=== PATIENT | female | born 1985 | race Caucasian/White ===

== ENCOUNTER 2023-05-20 10:04 | Outpatient (OUT) | payer OTHER, SELFPAY ==
[2023-05-20 10:59] LABS: Thyroid Stimulating Hormone 7.799 uIU/mL (0.358-3.740)
== END 2023-05-20 10:05 | disposition home or self-care (01) ==
LOC: LAB 10:04
PROVIDERS: PCP Family Medicine
DX: E03.9 Hypothyroidism, unspecified (principal)
CPT/HCPCS: 36415; 84436; 84443

== ENCOUNTER 2023-09-18 08:44 | Outpatient (OUT) | payer OTHER, SELFPAY ==
[2023-09-18 09:34] LABS: Thyroid Stimulating Hormone 1.069 uIU/mL (0.358-3.740)
== END 2023-09-18 08:45 | disposition home or self-care (01) ==
LOC: LAB 08:44
PROVIDERS: PCP Family Medicine
DX: E89.0 Postprocedural hypothyroidism (principal)
CPT/HCPCS: 36415; 84436; 84443

== ENCOUNTER 2023-12-10 21:54 | Outpatient (REF) | payer OTHER, SELFPAY ==
--- OUTSIDE RECORDS SUMMARY | 2023-12-10 22:00 | XMS_ITS | CCD ---
Author Organization [facility] Care Team Providers Care Environmental Services Associate Name Role Phone Nate Rubio Primary Care Physician Nate Kapadia Unavailable Unavailable Lor Glover Unavailable Jake Ny Unavailable Gemma Michael Primary Care Physician UnavailNate Couch Unavailable Unavailable MISC, DR MCGOWAN Admitting Unavailable MISC, DR MCGOWAN Attending Unavailable MISC, DR MCGOWAN Consulting Unavailable NADERER, DR EDNA Smalls Primary Care Unavailable MARYLU ., DR JORDAN Admitting Unavailable MARYLU ., DR JORDAN Attending Unavailable MARYLU ., DR JORDAN Consulting Unavailable NADERER, DR EDNA Smalls Primary Care Unavailable MARYLU ., DR JORDAN Admitting Unavailable MARYLU ., DR JORDAN Attending Unavailable MARYLU ., DR JORDAN Consulting Unavailable NADERER, DR EDNA Smalls Primary Care Unavailable ZIEBER, DR LANCE Biggs Consulting Unavailable KEZIA SALAMANCA Consulting Unavailable KEZIA SALAMANCA Admitting Unavailable NADERER, DR EDNA Smalls Primary Care Unavailable KEZIA SALAMANCA Attending Unavailable NADEREKalyan, DR EDNA Smalls Primary Care Unavailable NADERER, DR EDNA Smalls Admitting Unavailable NADERER, DR EDNA Smalls Attending Unavailable NADERER, DR EDNA Smalls Consulting Unavailable MISC, DR MCGOWAN Attending Unavailable MISC, DR MCGOWAN Admitting Unavailable MISC, DR MCGOWAN Consulting Unavailable NADERER, DR EDNA Smalls Primary Care Unavailable Gemma Michael Primary Care Physician EDNA [place] Attending Unavailable Allergies Allergy Classification Reported Allergen(s) Allergy Type Date of Onset Reaction(s) Facility (4 sources) Amoxicillin; Translations: [amoxicillin] Drug Allergy [facility] [employer] (4 sources) Other Allergy to substance (disorder) Methazolamide-h daksha [employer] (2 sources) methIMAzole Drug Allergy rash [employer] Other (1 source) methIMAzole Drug Allergy 6 [facility] Repository Medications Current Medications Medication Drug Class(es) Dates Sig (Normalized) Sig (Original) cephalexin 500 mg oral capsule (2 sources) Cephalosporin Antibacterial Start: 10-03-2021 take 1 capsule by mouth every six hours Cephalexin 500 MG 1 capsule Orally Four times a day for 10 day(s) Sep, Active cholecalciferol 0.05 mg oral capsule (4 sources) Vitamin D End: 05-27-2023 take 1 capsule by mouth once daily Vitamin D3 2,000 unit oral capsule 05/27/2023 take 1 capsule by oral route daily fexofenadine hydrochloride 180 mg oral tablet (6 sources) Histamine-1 Receptor Antagonist End: 05-27-2023 take 1 tablet by mouth once daily Camille Allergy 180 mg oral tablet 05/27/2023 take 1 tablet (180 mg) by oral route once daily Camille Active levothyroxine sodium 0.175 mg oral tablet (8 sources) l-Thyroxine Start: 05-27-2023 take 1 tablet by mouth once daily levothyroxine oral tablet 175 mcg 05/27/2023 Take 1 tablet daily with only water, at least 2 hr after and 30 min prior to eating or taking other meds. BRAD Mylan Start: 05-29-2022 levothyroxine 150 mcg tablet 05/29/2022 Take 1 tablet daily except take 1 1/2 tablets on Sundays with water on an empty stomach. BRAD Mylan Start: 08-31-2021 End: 05-28-2022 levothyroxine 137 mcg tablet 08/31/2021 05/28/2022 TAKE ONE TABLET BY MOUTH DAILY EXCEPT ON SATURDAY TAKE ONE AND ONE-HALF TABLETS BY MOUTH THAT MORNING WITH WATER ONLY FOR 30 MINUTES Start: 06-02-2020 take 1 tablet by more th once daily, then take 1 tablet by mouth once daily in the morning levothyroxine 137 mcg oral tablet 06/02/2020 take 1 daily except take 1 1/2 on Sundays by mouth every morning w/ water only for 30 minutes. BRAD Mylan Start: 06-01-2019 take 1 tablet by more th once daily, then take 1 tablet by mouth once daily in the morning levothyroxine 137 mcg oral tablet 06/01/2019 take 1 everyday except Saturday take 1 1/2 by mouth every morning w/ water only for 30 minutes Levothyroxine So dium 137 mg 1 daily Active montelukast 10 mg oral tablet (6 sources) Leukotriene Receptor Antagonist End: 05-27-2023 take 1 tablet by mouth once daily in the evening Singulair 10 mg oral tablet 05/27/2023 take 1 tablet (10 mg) by oral route once daily in the evening Singulair Active mupirocin 0.02 mg/mg topical ointment (2 sources) RNA Synthetase Inhibitor Antibacterial Mupirocin 2 % 1 application Externally Twice a day for 10 days Apply small amount to the abdominal abscess area twice a day for 10 days or until the area heals Active Nasacort Allergy 24HR (2 sources) Nasacort Allergy 24HR Active sulfamethoxazole 800 mg / trimethoprim 160 mg oral tablet (2 sources) Dihydrofolate Reductase Inhibitor Antibacterial, Sulfonamide Antimicrobial Start: 10-03-19 take 1 tablet by mouth every twelve hours Bactrim DS 800-160 MG 1 tablet Orally Twice a day for 10 day(s) Sep, Active Completed/Discontinued Medications Medication Drug Class(es) Dates Sig (Normalized) Sig (Original) amitriptyline hydrochloride 25 mg oral tablet (4 sources) Tricyclic Antidepressant End: 05-26-2015 take 1 tablet by mouth once daily at bedtime amitriptyline 25 mg oral tablet 05/26/2015 take 1 tablet (25 mg) by oral route once daily at bedtime cetirizine hydrochloride 10 mg oral tablet (4 sources) Histamine-1 Receptor Antagonist take 1 tablet by mouth once daily Zyrtec 10 mg oral tablet take 1 tablet (10 mg) by oral route once daily citalopram 20 mg oral tablet (4 sources) Serotonin Reuptake Inhibitor End: 03-19-2014 take 1 tablet by mouth once daily Celexa 20 mg oral tablet 03/19/2014 take 1 tablet (20 mg) by oral route once daily diazePAM 5 mg oral tablet (4 sources) Benzodiazepine End: 05-29-2022 take 1 tablet by mouth three times daily as needed diazepam 5 mg oral tablet 05/29/2022 take 1 tablet (5 mg) by oral route 3 times per day as needed lactobacillus acidophilus [id number] unt oral capsule (4 sources) End: 06-01-2019 take 1 capsule by mouth once daily Probiotic 10 billion cell oral capsule 06/01/2019 take 1 capsule by oral route daily lamoTRIgine 150 mg oral tablet (6 sources) Mood Stabilizer, Anti-epileptic Agent Start: 05-29-2018 End: 06-02-2020 take 1 tablet by mouth once daily Lamictal 150 mg oral tablet 05/29/2018 06/02/2020 take 1 tablet (150 mg) by oral route once daily LaMICtal Active norethindrone 0.35 mg oral tablet (8 sources) End: 03-19-2014 take 1 tablet by mouth once daily norethindrone (contraceptive) 0.35 mg oral tablet take 1 tablet by oral route once daily 24 hr propranolol hydrochloride 120 mg extended release oral capsule (4 sources) beta-Adrenergic Nicole End: 05-29-2018 take 1 capsule by mouth once daily propranolol 120 mg oral capsule,extended release 24 hr 05/29/2018 take 1 capsule (120 mg) by oral route once daily QUEtiapine 200 mg oral tablet (4 sources) Atypical Antipsychotic End: 05-29-2017 take 1 tablet by mouth once daily Seroquel 200 mg oral tablet 05/29/2017 take 1 tablet (200 mg) by oral route once daily sertraline 100 mg oral tablet (10 sources) Serotonin Reuptake Inhibitor Start: 05-30-2016 take 2 tablets by mouth once daily Zoloft 100 mg oral tablet 05/30/2016 Take 2 tablets by mouth once daily End: 05-26-2015 take 1 tablet by mouth once daily Zoloft 50 mg oral tablet 05/26/2015 take 1 tablet (50 mg) by oral route once daily Zoloft 200 mg 1 tablet Orally Active SUMAtriptan 25 mg oral tablet (4 sources) Serotonin-1b and Serotonin-1d Receptor Agonist End: 05-29-2022 take 1 tablet by mouth once Imitrex 25 mg oral tablet 05/29/2022 take 1 tablet (25 mg) by oral route once with fluids as early as possible after the onset of a migraine attack;may repeat after 2 hours if headache returns, not to exceed 200mg in 24hrs topiramate 50 mg oral tablet (4 sources) End: 05-31-2021 take 1 tablet by mouth once daily topiramate 50 mg oral tablet 05/31/2021 take 1 tablet (50 mg) by oral route once per day traZODone hydrochloride 50 mg oral tablet (4 sources) Serotonin Reuptake Inhibitor take 1 tablet by mouth once daily at bedtime as needed trazodone 50 mg oral tablet take 1 tablet (50 mg) by oral route once daily at bedtime as needed Problems Active Problems Problem Classification Problem Date Documented Date Episodic/Chronic Complications of surgical procedures or medical care (20 sources) Postprocedural hypothyroidism; 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] Onset: 05-26-2015 Chronic Immunizations and screening for infectious disease (1 source) Encounter for screening for human papillomavirus (HPV); Translations: [ENC SCREENING HUMAN PAPILLOMAVIRUS] Onset: 11-30-2022 Episodic Nutritional deficiencies (1 source) Vitamin D deficiency, unspecified; Translations: [VITAMIN D DEFICIENCY UNSPECIFIED] Onset: 05-21-2022 Chronic Other screening for suspected conditions (not mental disorders or infectious disease) (8 sources) Encounter for screening mammogram for malignant neoplasm of breast; Translations: [Encounter for screening for malignant neoplasm of cervix] Onset: 11-26-2022 Episodic Other upper respiratory infections (2 sources) Acute maxillary sinusitis; Translations: [Maxillary sinusitis, acute] Episodic Residual codes; unclassified (1 source) Family history of malignant neoplasm of breast; Translations: [FAMILY HX MALIG NEOPLASM OF BREAST] Onset: 01-01-2023 Episodic Residual codes; unclassified (1 source) Family history of malignant neoplasm of trachea, bronchus and lung; Translations: [FAM HX MALIG NEOPLSM TRACH BRON LNG] Onset: 01-01-2023 Episodic Thyroid disorders (20 sources) Hypothyroidism, unspecified; Translations: [Graves' disease] Onset: 12-31-2013 Chronic Past or Other Problems Problem Classification Problem Date Documented Date Episodic/Chronic Bacterial infection; unspecified site (1 source) Personal history of Methicillin resistant Staphylococcus aureus infection; Translations: [PERS HX METHICILLIN RSIST STAPH INF] Onset: 01-16-2022 Episodic Skin and subcutaneous tissue infections (9 sources) Abscess; Translations: [Cutaneous abscess, unspecified] Onset: 10-03-2021 Resolved: 01-13-2022 Episodic Results Test Name Value Interpretation Reference Range Facility No Panel Informationon 05-23 Tobacco smoking status Non-Smoker Invalid Interpretation Code [email or web address] MG MAMM SCREEN 3D LINDA CADon 12-25-2022 MG MAMM SCREEN 3D LINDA CAD Patient: JEET STEVENSON Exam Date: 12/25/2022 : 1985 Gender:F Ordering : DR NIKKI VALERO . Admission #: [id number] Family : Order #: [id number] CLICK HERE TO VIEW EXAM RADIOLOGY REPORT PROCEDURE: MAMMOGRAM SCREENING 3D BILATERAL CAD COMPARISON: MG MAMM SCREEN 3D LINDA CAD, 12/13/2021. MG MAMM SCREEN LINDA W CAD, 09/13/2020. MG MAMM SCREEN LINDA W CAD, 09/08/2019. MG MAMM LINDA SCRN W CAD DIG, 01/27/2013. INDICATIONS: Screening mammography Calculator Name NCI Breast Cancer Risk Assessment Tool 5 Year Breast Cancer Risk 0.70% Lifetime Breast Cancer Risk 20.30% Personal Breast Cancer No Personal Ovarian Cancer No Treatments None Family Cancers Mother with breast cancer at age 30; Grandfather-maternal with lung cancer at age 65; Grandfather-paternal with lung cancer at age 65. LOCATION: [facility] BREAST COMPOSITION: Scattered areas fibroglandular density. FINDINGS: DIAGNOSTIC CATEGORY 1--NEGATIVE. RIGHT BREAST: No significant suspicious finding. No significant change has occurred. LEFT BREAST: No significant suspicious finding. No significant change has occurred. RECOMMENDATIONS: CLINICAL EVALUATION. PLEASE NOTE: A NORMAL MAMMOGRAM DOES NOT EXCLUDE THE POSSIBILITY OF BREAST CANCER. A CLINICALLY SUSPICIOUS PALPABLE LUMP SHOULD BE BIOPSIED. Dictated by: Lance Hernandez M.D. on 12/25/2022 at 13:31 Approved by: Lance Hernandez M.D. on 12/25/2022 at 13:34 Normal [facility] PAP ACOG PANEL 2: 30 to 65on 12-02-2022 . . Normal [facility] Comment on above: Result Comment: Perf ormed at: WB Performed By: #### [id number] #### [facility] [address] [address] [address] Vinnie Gallardo Age Gdln ACOG Testing 30-65 Normal [facility] Comment on above: Performed By: #### [id number] #### [facility] [address] [place] [address] Dr. Vinnie Gallardo DIAGNOSIS: Comment Normal [facility] Comment on above: Result Comment: NEGA TIVE FOR INTRAEPITHELIAL LESION OR MALIGNANCY. Performed at: WB Performed By: #### [id number] #### [facility] [address] [address] [address] Vinnie Gallardo HPV Aptima Negative Normal Negative [facility] Comment on above: Result Comment: This nucleic acid amplification test detects fourteen high-risk HPV types (16,18,31,33,35,39,45,51,52,56,58,59,66,68) without differentiation. Performed at: =G Performed By: #### [id number] #### [facility] [address] [place] [address] Dr. Vinnie Gallardo HPV Genotype Reflex Comment Normal [facility] Comment on above: Result Comment: Crit eria not met, HPV Genotype not performed. Performed at: WB Performed By: #### [id number] #### [facility] [address] [place] [address] Dr. Vinnie Gallardo Methodology: Comment Normal [facility] Comment on above: Result Comment: This liquid based ThinPrep(R) pap test was screened with the use of an image guided system. Performed at: WB Performed By: #### [id number] #### [facility] [address] [place] [address] Dr. Vinnie Gallardo Note: Comment Normal [facility] Comment on above: Result Comment: The Pap smear is a screening test designed to aid in the detection of premalignant and malignant conditions of the uterine cervix. It is not a diagnostic procedure and should not be used as the sole means of detecting cervical cancer. Both false-positive and false-negative reports do occur. . Performed at: WB Performed By: #### [id number] #### [facility] [address] [place] [address] Dr. Vinnie Gallardo Performed by: Comment Normal [facility] Comment on above: Result Comment: Laura Maldonado, Cake Decorator (ASCP) Performed at: WB Performed By: #### [id number] #### [facility] [address] [place] [address] Dr. Vinnie Gallardo Specimen adequacy: Comment Normal [facility] Comment on above: Result Comment: Sati sfactory for evaluation. No endocervical component is identified. Performed at: WB Performed By: #### [id number] #### [facility] [address] [place] [address] Dr. Vinnie Gallardo Laboratory - Chemistry and C hemistry - challengeon 09-07-2022 TSH Qn 3.013 m[IU]/L Invalid Interpretation Code [employer] No Panel Informationon 09-07 ks Invalid Interpretation Code [employer] T4on 09-07-2022 T4 [Mass/Vol] 9.30 ug/dL Invalid Interpretation Code [facility] Comment on above: Performed By: #### T 4, TSH #### [facility] [address] [place] [address] Dr. Vinnie Gallardo TSHon 09-07-2022 TSH 3.013 uIU/mL Normal 0.358-3.740 [facility] Comment on above: Performed By: #### L IPID, LIVER, BMP #### [facility] [address] [place] [address] Dr. Vinnie Gallardo T4 [facility]on 05-19-2022 T4 [Mass/Vol] 7.5 ug/dL Normal 4.5-12.0 [facility] Comment on above: Performed By: #### T 4LC #### [facility] [address] [place] [address] Dr. Vinnie Gallardo CBC AUTO DIFFon 05-18-2022 BASO # 0.0 103/ul Normal 0.0-0.1 [facility] Comment on above: Performed By: #### L IPID, LIVER, BMP #### [facility] [address] [place] [address] Dr. Vinnie Gallardo Basophils/100 WBC (Bld) 0.4 % Normal 0.2-2.0 [facility] Comment on above: Performed By: #### L IPID, LIVER, BMP #### [facility] [address] [place] [address] Dr. Vinnie Gallardo EO # 0.2 103/ul Normal 0.0-0.7 [facility] Comment on above: Performed By: #### L IPID, LIVER, BMP #### [facility] [address] [place] [address] Dr. Vinnie Gallardo Eosinophils/100 WBC (Bld) 2.4 % Normal 0.9-7.0 [facility] Comment on above: Performed By: #### L IPID, LIVER, BMP #### [facility] [address] [place] [address] Dr. Vinnie Gallardo Erythrocyte distribution width (RBC) [Ratio] 13.2 % Normal 11.0-15.0 [facility] Comment on above: Performed By: #### L IPID, LIVER, BMP #### [facility] [address] [place] [address] Dr. Vinnie Gallardo Hematocrit (Bld) [Volume fraction] 38.9 % Normal 36.0-48.0 [facility] Comment on above: Performed By: #### L IPID, LIVER, BMP #### [facility] [address] [place] [address] Dr. Vinnie Gallardo Hemoglobin (Bld) [Mass/Vol] 13.1 g/dL Normal 12.0-16.0 [facility] Comment on above: Performed By: #### L IPID, LIVER, BMP #### [facility] [address] [place] [address] Dr. Vinnie Gallardo IG # 0.05 10e3/ul Critically high 0.00-0.03 [facility] Comment on above: Performed By: #### L IPID, LIVER, BMP #### [facility] [address] [place] [address] Dr. Vinnie Gallardo IG % 0.5 % Normal 0.0-0.5 [facility] Comment on above: Performed By: #### L IPID, LIVER, BMP #### [facility] [address] [place] [address] Dr. Vinnie Gallardo LYMPH # 2.5 103/ul Normal 1.2-3.8 [facility] Comment on above: Performed By: #### L IPID, LIVER, BMP #### [facility] [address] [address] [address] Vinnie Gallardo Lymphocytes/100 WBC (Bld) 26.6 % Normal 20.5-60.0 [facility] Comment on above: Performed By: #### L IPID, LIVER, BMP #### [facility] [address] [place] [address] Dr. Vinnie Gallardo MANUAL DIFF REQ NO Normal [facility] Comment on above: Performed By: #### L IPID, LIVER, BMP #### [facility] [address] [place] [address] Dr. Vinnie Gallardo MCH (RBC) [Entitic mass] 29.7 pg Normal 26.7-34.0 [facility] Comment on above: Performed By: #### L IPID, LIVER, BMP #### [facility] [address] [place] [address] Dr. Vinnie Gallardo MCHC (RBC) [Mass/Vol] 33.7 g/dL Normal 29.9-35.2 [facility] Comment on above: Performed By: #### L IPID, LIVER, BMP #### [facility] [address] [place] [address] Dr. Vinnie Gallardo MCV (RBC) [Entitic vol] 88.2 fL Normal 81.0-99.0 [facility] Comment on above: Performed By: #### L IPID, LIVER, BMP #### [facility] [address] [place] [address] Dr. Vinnie Gallardo MONO # 0.6 103/ul Normal 0.3-0.8 [facility] Comment on above: Performed By: #### L IPID, LIVER, BMP #### [facility] [address] [place] [address] Dr. Vinnie Gallardo Monocytes/100 WBC (Bld) 6.5 % Normal 1.7-12.0 [facility] Comment on above: Performed By: #### L IPID, LIVER, BMP #### [facility] [address] [place] [address] Dr. Vinnie Gallardo NEUT # 6.0 103/ul Normal 1.4-6.5 [facility] Comment on above: Performed By: #### L IPID, LIVER, BMP #### [facility] [address] [place] [address] Dr. Vinnie Gallardo Neutrophils/100 WBC (Bld) 63.6 % Normal 43.0-75.0 [facility] Comment on above: Performed By: #### L IPID, LIVER, BMP #### [facility] [address] [place] [address] Dr. Vinnie Gallardo Platelet mean volume (Bld) [Entitic vol] 10.5 fL Normal 9.5-13.5 [facility] Comment on above: Performed By: #### L IPID, LIVER, BMP #### [facility] [address] [place] [address] Dr. Vinnie Gallardo PLT 276 103/ul Normal 150-450 [facility] Comment on above: Performed By: #### L IPID, LIVER, BMP #### [facility] [address] [place] [address] Dr. Vinnie Gallardo RBC 4.41 106/ul Normal 4.20-5.40 [facility] Comment on above: Performed By: #### L IPID, LIVER, BMP #### [facility] [address] [place] [address] Dr. Vinnie Gallardo WBC 9.4 103/ul Normal 4.0-11.0 [facility] Comment on above: Performed By: #### L IPID, LIVER, BMP #### [facility] [address] [place] [address] Dr. Vinnie Gallardo GLYCOHEMOGLOBIN A1Con 2021 ADA RECOMMENDATION SEE BELOW Normal [facility] Comment on above: Result Comment: ADA RECOMMENDED LIMIT 4.0 - 6.0 ADA THERAPEUTIC TARGET < 7.0 ACTION SUGGESTED > 7.0 Performed By: #### A 1C #### [facility] [address] [address] [address] Vinnie Gallardo Glucose [Mass/Vol] 94 mg/dL Normal [facility] Comment on above: Performed By: #### A 1C #### [facility] [address] [address] [address] Vinnie Gallardo HbA1c (Bld) [Mass fraction] 4.9 % Normal 4.5-6.2 [facility] Comment on above: Performed By: #### A 1C #### [facility] [address] [address] [address] Vinnie Gallardo LIPID PROFILEon 05-18-2022 CHOL-HDL RATIO NORM SEE BELOW Normal [facility] Comment on above: Result Comment: 3.3 - 4.4 LOW RISK 4.4 - 7.1 AVERAGE RISK 7.1 - 11.0 MODERATE RISK >11.0 HIGH RISK Performed By: #### L IPID, LIVER, BMP #### [facility] [address] [address] [address] Vinnie Gallardo Cholesterol [Mass/Vol] 143 mg/dL Normal <=200 [facility] Comment on above: Performed By: #### L IPID, LIVER, BMP #### [facility] [address] [address] [address] Vinnie Gallardo Cholesterol in HDL [Mass/Vol] 42 mg/dL Normal 40-60 [facility] Comment on above: Performed By: #### L IPID, LIVER, BMP #### [facility] [address] [address] [address] Vinnie Gallardo Cholesterol in LDL [Mass/Vol] 74.6 mg/dL Normal [facility] Comment on above: Performed By: #### L IPID, LIVER, BMP #### [facility] [address] [address] [address] Vinnie Gallardo Cholesterol.total/Ch olesterol in HDL [Mass ratio] 3.4 {ratio} Normal [facility] Comment on above: Performed By: #### L IPID, LIVER, BMP #### [facility] [address] [address] [address] Vinnie Gallardo HDL NORMAL > or = 60 mg/dl - LOW CARDIOVASCULAR RISK <40 mg/dl - HIGH CARDIOVASCULAR RISK Normal [facility] Comment on above: Performed By: #### L IPID, LIVER, BMP #### [facility] [address] [address] [address] Vinnie Gallardo LDL CALC NORMAL SEE BELOW Normal [facility] Comment on above: Result Comment: <100 mg/dl OPTIMAL 100 - 129 mg/dl NEAR OR ABOVE OPTIMAL 130 - 159 mg/dl BORDERLINE HIGH 160 - 189 mg/dl HIGH >190 mg/dl VERY HIGH Performed By: #### L IPID, LIVER, BMP #### [facility] [address] [address] [address] Vinnie Gallardo Triglyceride [Mass/Vol] 132 mg/dL Normal <=150 [facility] Comment on above: Performed By: #### L IPID, LIVER, BMP #### [facility] [address] [address] [address] Vinnie Gallardo VLDL CALC 26.4 mg/dL Normal [facility] Comment on above: Performed By: #### L IPID, LIVER, BMP #### [facility] [address] [address] [address] Vinnie Gallardo LIVER PROFILEon 05-18-2022 Albumin [Mass/Vol] 3.6 g/dL Normal 3.4-5.0 [facility] Comment on above: Performed By: #### L IPID, LIVER, BMP #### [facility] [address] [address] [address] Vinnie Gallardo Albumin/Globulin [Mass ratio] 0.9 {ratio} Normal [facility] Comment on above: Performed By: #### L IPID, LIVER, BMP #### [facility] [address] [address] [address] Vinnie Gallardo ALP [Catalytic activity/Vol] 84 U/L Normal 46-116 [facility] Comment on above: Performed By: #### L IPID, LIVER, BMP #### [facility] [address] [address] [address] Vinnie Gallardo ALT [Catalytic activity/Vol] 33 U/L Normal 14-59 [facility] Comment on above: Performed By: #### L IPID, LIVER, BMP #### [facility] [address] [address] [address] Vinnie Gallardo AST [Catalytic activity/Vol] 22 U/L Normal 15-37 [facility] Comment on above: Performed By: #### L IPID, LIVER, BMP #### [facility] [address] [place] [address] Dr. Vinnie Gallardo BILI, CONJUGATED 0.2 mg/dL Normal 0.0-0.2 [facility] Comment on above: Performed By: #### L IPID, LIVER, BMP #### [facility] [address] [place] [address] Dr. Vinnie Gallardo Bilirubin [Mass/Vol] 1.1 mg/dL Critically high 0.2-1.0 [facility] Comment on above: Performed By: #### L IPID, LIVER, BMP #### [facility] [address] [place] [address] Dr. Vinnie Gallardo Globulin (S) [Mass/Vol] 3.9 g/dL Normal [facility] Comment on above: Performed By: #### L IPID, LIVER, BMP #### [facility] [address] [place] [address] Dr. Vinnie Gallardo Protein [Mass/Vol] 7.5 g/dL Normal 6.4-8.2 [facility] Comment on above: Performed By: #### L IPID, LIVER, BMP #### [facility] [address] [place] [address] Dr. Vinnie Gallardo Laboratory - Chemistry and C hemistry - challengeon 05-18-2022 TSH Qn 4.724 H Invalid Interpretation Code [employer] No Panel Informationon 05-18 RM Invalid Interpretation Code [employer] [facility] PROF CHEM 8 (BAS METB)on Anion gap [Moles/Vol] 10.7 mmol/L Normal [facility] Comment on above: Performed By: #### L IPID, LIVER, BMP #### [facility] [address] [address] [address] Vinnie Gallardo Calcium [Mass/Vol] 8.5 mg/dL Normal 8.5-10.1 [facility] Comment on above: Performed By: #### L IPID, LIVER, BMP #### [facility] [address] [address] [address] Vinnie Gallardo Chloride [Moles/Vol] 104 mmol/L Normal 98-107 [facility] Comment on above: Performed By: #### L IPID, LIVER, BMP #### [facility] [address] [address] [address] Vinnie Gallardo CO2 [Moles/Vol] 26.9 mmol/L Normal 21.0-32.0 [facility] Comment on above: Performed By: #### L IPID, LIVER, BMP #### [facility] [address] [address] [address] Vinnie Gallardo Creatinine [Mass/Vol] 0.84 mg/dL Normal 0.55-1.02 [facility] Comment on above: Performed By: #### L IPID, LIVER, BMP #### [facility] [address] [address] [address] Vinnie Gallardo EGFR-AF INDONESIAN >60 Normal >=60 [facility] Comment on above: Performed By: #### L IPID, LIVER, BMP #### [facility] [address] [address] [address] Vinnie Gallardo EGFR-NON AF INDONESIAN >60 Normal >=60 [facility] Comment on above: Performed By: #### L IPID, LIVER, BMP #### [facility] [address] [address] [address] Vinnie Gallardo Glucose [Mass/Vol] 100 mg/dL Normal 74-106 [facility] Comment on above: Performed By: #### L IPID, LIVER, BMP #### [facility] [address] [address] [address] Vinnie Gallardo Potassium [Moles/Vol] 3.6 mmol/L Normal 3.5-5.1 [facility] Comment on above: Performed By: #### L IPID, LIVER, BMP #### [facility] [address] [address] [address] Vinnie Gallardo Sodium [Moles/Vol] 138 mmol/L Normal 136-145 [facility] Comment on above: Performed By: #### L IPID, LIVER, BMP #### [facility] [address] [address] [address] Vinnie Gallardo Urea nitrogen [Mass/Vol] 7.0 mg/dL Normal 7.0-18.0 [facility] Comment on above: Performed By: #### L IPID, LIVER, BMP #### [facility] [address] [place] [address] Dr. Vinnie Gallardo Urea nitrogen/Creatinine [Mass ratio] 8.3 mg/mg Normal [facility] Comment on above: Performed By: #### L IPID, LIVER, BMP #### [facility] [address] [place] [address] Dr. Vinnie Gallardo TSHon 05-18-2022 TSH 4.724 uIU/mL Critically high 0.358-3.740 [facility] Comment on above: Performed By: #### L IPID, LIVER, BMP #### [facility] [address] [place] [address] Dr. Vinnie Gallardo VITAMIN D 25 OHon 05-18-2022 VIT D 25-OH 12.4 ng/mL Normal [facility] Comment on above: Performed By: #### V ITAD #### [facility] [address] [place] [address] Dr. Vinnie Gallardo VIT D RANGES SEE BELOW Normal [facility] Comment on above: Result Comment: <20 ng/mL Vit D deficient 20 - <30 ng/mL Vit D insufficient 30 - 100 ng/mL Vit D sufficient >100 ng/mL Potential Toxicity Performed By: #### V ITAD #### [facility] [address] [place] [address] Dr. Vinnie Gallardo CBC AUTO DIFFon 01-13-2022 BASO # 0.0 103/ul Normal 0.0-0.1 [facility] Comment on above: Performed By: #### C BC #### [facility] [address] [address] [address] Vinnie Gallardo Basophils/100 WBC (Bld) 0.2 % Normal 0.2-2.0 [facility] Comment on above: Performed By: #### C BC #### [facility] [address] [address] [address] Vinnie Gallardo EO # 0.2 103/ul Normal 0.0-0.7 [facility] Comment on above: Performed By: #### C BC #### [facility] [address] [address] [address] Vinnie Gallardo Eosinophils/100 WBC (Bld) 1.5 % Normal 0.9-7.0 [facility] Comment on above: Performed By: #### C BC #### [facility] [address] [place] [address] Dr. Vinnie Gallardo Erythrocyte distribution width (RBC) [Ratio] 13.0 % Normal 11.0-15.0 [facility] Comment on above: Performed By: #### C BC #### [facility] [address] [place] [address] Dr. Vinnie Gallardo Hematocrit (Bld) [Volume fraction] 38.6 % Normal 36.0-48.0 [facility] Comment on above: Performed By: #### C BC #### [facility] [address] [address] [address] Vinnie Gallardo Hemoglobin (Bld) [Mass/Vol] 12.9 g/dL Normal 12.0-16.0 [facility] Comment on above: Performed By: #### C BC #### [facility] [address] [address] [address] Vinnie Gallardo IG # 0.05 10e3/ul Critically high 0.00-0.03 [facility] Comment on above: Performed By: #### C BC #### [facility] [address] [address] [address] iVnnie Gallardo IG % 0.4 % Normal 0.0-0.5 [facility] Comment on above: Performed By: #### C BC #### [facility] [address] [address] [address] Vinnie Gallardo LYMPH # 2.4 103/ul Normal 1.2-3.8 [facility] Comment on above: Performed By: #### C BC #### [facility] [address] [place] [address] Dr. Vinnie Gallardo Lymphocytes/100 WBC (Bld) 19.5 % Critically low 20.5-60.0 [facility] Comment on above: Performed By: #### C BC #### [facility] [address] [place] [address] Dr. Vinnie Gallardo MANUAL DIFF REQ NO Normal [facility] Comment on above: Performed By: #### C BC #### [facility] [address] [place] [address] Dr. Vinnie Gallardo MCH (RBC) [Entitic mass] 29.7 pg Normal 26.7-34.0 [facility] Comment on above: Performed By: #### C BC #### [facility] [address] [place] [address] Dr. Vinnie Gallardo MCHC (RBC) [Mass/Vol] 33.4 g/dL Normal 29.9-35.2 [facility] Comment on above: Performed By: #### C BC #### [facility] [address] [place] [address] Dr. Vinnie Gallardo MCV (RBC) [Entitic vol] 88.7 fL Normal 81.0-99.0 [facility] Comment on above: Performed By: #### C BC #### [facility] [address] [place] [address] Dr. Vinnie Gallardo MONO # 1.0 103/ul Critically high 0.3-0.8 [facility] Comment on above: Performed By: #### C BC #### [facility] [address] [place] [address] Dr. Vinnie Gallardo Monocytes/100 WBC (Bld) 8.2 % Normal 1.7-12.0 [facility] Comment on above: Performed By: #### C BC #### [facility] [address] [address] [address] Vinnie Gallardo NEUT # 8.7 103/ul Critically high 1.4-6.5 [facility] Comment on above: Performed By: #### C BC #### [facility] [address] [address] [address] Vinnie Gallardo Neutrophils/100 WBC (Bld) 70.2 % Normal 43.0-75.0 [facility] Comment on above: Performed By: #### C BC #### [facility] [address] [address] [address] Vinnie Gallardo Platelet mean volume (Bld) [Entitic vol] 10.1 fL Normal 9.5-13.5 [facility] Comment on above: Performed By: #### C BC #### [facility] [address] [place] [address] Dr. Vinnie Gallardo PLT 264 103/ul Normal 150-450 [facility] Comment on above: Performed By: #### C BC #### [facility] [address] [address] [address] Vinnie Gallardo RBC 4.35 106/ul Normal 4.20-5.40 [facility] Comment on above: Performed By: #### C BC #### [facility] [address] [address] [address] Vinnie Gallardo WBC 12.4 103/ul Critically high 4.0-11.0 [facility] Comment on above: Performed By: #### C BC #### [facility] [address] [place] [address] Dr. Vinnie Gallardo PROF CHEM 8 (BAS METB)on Anion gap [Moles/Vol] 12.0 mmol/L Normal [facility] Comment on above: Performed By: #### L IPID, LIVER, BMP #### [facility] [address] [place] [address] Dr. Vinnie Gallardo Calcium [Mass/Vol] 8.3 mg/dL Critically low 8.5-10.1 [facility] Comment on above: Performed By: #### L IPID, LIVER, BMP #### [facility] [address] [address] [address] Vinnie Gallardo Chloride [Moles/Vol] 105 mmol/L Normal 98-107 [facility] Comment on above: Performed By: #### L IPID, LIVER, BMP #### [facility] [address] [address] [address] Vinnie Gallardo CO2 [Moles/Vol] 26.6 mmol/L Normal 21.0-32.0 [facility] Comment on above: Performed By: #### L IPID, LIVER, BMP #### [facility] [address] [address] [address] Vinnie Gallardo Creatinine [Mass/Vol] 0.80 mg/dL Normal 0.55-1.02 [facility] Comment on above: Performed By: #### L IPID, LIVER, BMP #### [facility] [address] [address] [address] Vinnie Glalardo EGFR-AF INDONESIAN >60 Normal >=60 [facility] Comment on above: Performed By: #### L IPID, LIVER, BMP #### [facility] [address] [address] [address] Vinnie Gallardo EGFR-NON AF INDONESIAN >60 Normal >=60 [facility] Comment on above: Performed By: #### L IPID, LIVER, BMP #### [facility] [address] [address] [address] Vinnie Gallardo Glucose [Mass/Vol] 98 mg/dL Normal 74-106 [facility] Comment on above: Performed By: #### L IPID, LIVER, BMP #### [facility] [address] [address] [address] Vinnie Gallardo Potassium [Moles/Vol] 3.6 mmol/L Normal 3.5-5.1 [facility] Comment on above: Performed By: #### L IPID, LIVER, BMP #### [facility] [address] [address] [address] Vinnie Gallardo Sodium [Moles/Vol] 140 mmol/L Normal 136-145 [facility] Comment on above: Performed By: #### L IPID, LIVER, BMP #### [facility] [id number] Vinnie Gallardo Urea nitrogen [Mass/Vol] 13.0 mg/dL Normal 7.0-18.0 [facility] Comment on above: Performed By: #### L IPID, LIVER, BMP #### [facility] [address] [place], [place] [id number] Dr. Vinnie Gallardo Urea nitrogen/Creatinine [Mass ratio] 16.2 mg/mg Normal [facility] Comment on above: Performed By: #### L IPID, LIVER, BMP #### [facility] [address] [place] [address] Dr. Vinnie Gallardo Laboratory - Chemistry and C hemistry - challengeon 10-12-2021 Free T4 [Mass/Vol] 0.92 ng/dL Invalid Interpretation Code [employer] TSH Qn 3.23 m[IU]/L Invalid Interpretation Code [employer] No Panel Informationon 10-12 ls Invalid Interpretation Code [employer] Aerobic Cultureon 10-03-2021 Aerobic Culture Reason for Exam Abscess Abdomen ORGANISM: Methicillin Resis Staph Aureus (O:MRSA) Quantity of Growth Heavy Growth Reason for Exam Abscess Abdomen No Anaerobes Isolated 3 Days Reason for Exam Abscess Abdomen Gram Stain Result No Bacteria Seen Aerobic REBECCA Charge (45) ----- SUSCEPTIBILITY ---- ORGANISM: O:MRSA ANTIBIOTIC INTERPRETATION REBECCA Amoxacillin/K Clavulanate R >4/2 Ampicillin R >8 Ampicillin/Sulbactam R >16/8 Azithromycin S <2 Cefazolin R 16 Ceftaroline S 1 Ceftriaxone R 32 Ciprofloxacin R >2 Clindamycin S <0.5 Daptomycin S <1 Erythromycin S <0.25 Linezolid S 4 Meropenem R 8 Oxacillin R >2 Penicillin R >8 Rifampin S <1 Tetracycline S <4 Trimethoprim/Sulfame thoxazole S <0.5/9.5 Vancomycin S 1 S = SUSCEPTIBLE I = INTERMEDIATE R = RESISTANT BLANK = DATA NOT AVAILABLE, OR DRUG NOT ADVISABLE OR TESTED R* = RESISTANCE DUE TO EXTENDED SPECTRUM BETA-LACTAMASES ESBL = EXTENDED SPECTRUM BETA-LACTAMASE TFG = THYMIDINE-DEPENDENT STRAIN TESSIE = BETA-LACTAMASE POSITIVE IB = INDUCIBLE BETA-LACTAMASE. APPEARS IN PLACE OF 'S' WITH SPECIES KNOWN TO POSSESS INDUCIBLE BETA-LACTAMASES. POTENTIALLY THEY MAY BECOME RESISTANT TO ALL B-LACTAM DRUGS. PERFORMED BY: [place] [address] PATHOLOGIST CERTIFIED MEETING PROFESSIONAL LIAN GRAVES M.D. [facility] Comment on above: Performed By: #### A ERC #### [address] Laboratory - Chemistry and C hemistry - challengeon 05-24-2021 T4 [Mass/Vol] 8.8 ug/dL Invalid Interpretation Code [employer] TSH Qn 6.04 H Invalid Interpretation Code [employer] No Panel Informationon 05-24 ls Invalid Interpretation Code [employer] Otheron 05-26-2020 ls Invalid Interpretation Code [employer] Thyroidon 05-26-2020 T4 [Mass/Vol] 7.6 ug/dL Invalid Interpretation Code [employer] TSH Qn 3.07 m[IU]/L Invalid Interpretation Code [employer] Otheron 05-25-2019 ls Invalid Interpretation Code [employer] Thyroidon 05-25-2019 T4 [Mass/Vol] 8.2 ug/dL Invalid Interpretation Code [employer] TSH Qn 3.12 m[IU]/L Invalid Interpretation Code [employer] [facility]acon 04-06-2019 Cholesterol [Mass/Vol] 175.0 mg/dL Invalid Interpretation Code [email or web address] Cholesterol in HDL [Mass/Vol] 39.0 mg/dL Invalid Interpretation Code [email or web address] Cholesterol in LDL [Mass/Vol] 108.0 mg/dL Invalid Interpretation Code [employer] Triglyceride [Mass/Vol] 138.0 mg/dL Invalid Interpretation Code [employer] Hematologyon 04-06-2019 Basophils/100 WBC (Bld) 0.50 % Invalid Interpretation Code [email or web address] Eosinophils/100 WBC (Bld) 1.80 % Invalid Interpretation Code [employer] Hematocrit (Bld) [Volume fraction] 39.80 % Invalid Interpretation Code [employer] Hemoglobin (Bld) [Mass/Vol] 13.40 g/dL Invalid Interpretation Code [email or web address] Lymphocytes/100 WBC (Bld) 28.40 % Invalid Interpretation Code [employer] MCH (RBC) [Entitic mass] 29.30 pg Invalid Interpretation Code [email or web address] MCV (RBC) [Entitic vol] 87.10 fL Invalid Interpretation Code [email or web address] Monocytes/100 WBC (Bld) 8.20 % Invalid Interpretation Code [email or web address] Neutrophils/100 WBC (Bld) 64.50 % Invalid Interpretation Code [email or web address] Platelets (Bld) [#/Vol] 273.0 10*3/uL Invalid Interpretation Code [email or web address] RBC (Bld) [#/Vol] 4.570 10*6/uL Invalid Interpretation Code [employer] WBC (Bld) [#/Vol] 8.40 10*3/uL Invalid Interpretation Code [employer] Metabolic Panelon 04-06-2019 Albumin [Mass/Vol] 3.70 g/dL Invalid Interpretation Code [employer] ALT [Catalytic activity/Vol] 46.0 U/L Invalid Interpretation Code [employer] Anion gap [Moles/Vol] 11.8 mmol/L Invalid Interpretation Code [employer] AST [Catalytic activity/Vol] 36.0 U/L Invalid Interpretation Code [employer] Calcium [Mass/Vol] 9.0 mg/dL Invalid Interpretation Code [employer] Chloride [Moles/Vol] 104.0 mmol/L Invalid Interpretation Code [employer] CO2 [Moles/Vol] 27.10 mmol/L Invalid Interpretation Code [employer] Creatinine [Mass/Vol] 0.820 mg/dL Invalid Interpretation Code [employer] GFR/1.73 sq M predicted among non-blacks MDRD (S/P/Bld) [Vol rate/Area] mL/min/{1.73_m2} Invalid Interpretation Code [employer] Glucose [Mass/Vol] 92.0 mg/dL Invalid Interpretation Code [employer] HbA1c (Bld) [Mass fraction] 5.30 % Invalid Interpretation Code [employer] Potassium [Moles/Vol] 3.90 mmol/L Invalid Interpretation Code [employer] Sodium [Moles/Vol] 139.0 mmol/L Invalid Interpretation Code [employer] Urea nitrogen [Mass/Vol] 7.0 mg/dL Invalid Interpretation Code [employer] Otheron 04-06-2019 Calcidiol [Mass/Vol] 5.5 L Invalid Interpretation Code [employer] Erythrocyte distribution width (RBC) [Ratio] 13.40 % Invalid Interpretation Code [employer] MCHC (RBC) [Mass/Vol] 33.70 g/dL Invalid Interpretation Code [employer] ls Invalid Interpretation Code [employer] Thyroidon 04-06-2019 TSH Qn 4.767 H Invalid Interpretation Code [employer] Otheron 05-21-2018 jls Invalid Interpretation Code [employer] Thyroidon 05-21-2018 T4 [Mass/Vol] 7.7 ug/dL Invalid Interpretation Code [employer] TSH Qn 5.39 H Invalid Interpretation Code [employer] Otheron 05-21-2017 ls Invalid Interpretation Code [employer] Thyroidon 05-21-2017 T4 [Mass/Vol] 8.5 ug/dL Invalid Interpretation Code [employer] TSH Qn 3.58 m[IU]/L Invalid Interpretation Code [employer] Otheron 05-21-2016 ls Invalid Interpretation Code [employer] Thyroidon 05-21-2016 Free T4 [Mass/Vol] 0.77 ng/dL Invalid Interpretation Code [employer] TSH Qn 5.90 H Invalid Interpretation Code [employer] Otheron 05-18-2015 RM Invalid Interpretation Code [employer] Thyroidon 05-18-2015 T4 [Mass/Vol] 7.40 ug/dL Invalid Interpretation Code [employer] TSH Qn 2.880 m[IU]/L Invalid Interpretation Code [employer] Vital Signs Date Time Vital Sign Value Performing Clinician Facility 05-27-2023 10:120400 Body height 163.83 cm [facility] 05-27-2023 10:12-0400 Body mass index (BMI) [Ratio] 49.18 kg/m2 [facility] 05-27-2023 10:12-0400 Body surface area Derived from formula 2.45 m2 [facility] 05-27-2023 10:12-0400 Body weight 132 kg [facility] 05-27-2023 10:12-0400 Diastolic blood pressure 84 mm[Hg] [facility] 05-27-2023 10:12-0400 Heart rate 84 /min [facility] 05-27-2023 10:12-0400 Systolic blood pressure 142 mm[Hg] [facility] 05-29-2022 12:17-0400 Body height 163.83 cm [facility] 05-29-2022 12:17-0400 Body mass index (BMI) [Ratio] 47.91 kg/m2 [facility] 05-29-2022 12:17-0400 Body surface area Derived from formula 2.42 m2 [facility] 05-29-2022 12:17-0400 Body weight 128.6 kg [facility] 05-29-2022 12:17-0400 Diastolic blood pressure 78 mm[Hg] [facility] 05-29-2022 12:17-0400 Heart rate 78 /min [facility] 05-29-2022 12:17-0400 Systolic blood pressure 118 mm[Hg] [facility] 01-13-2022 15:10-0400 Body height 162.56 cm Jake Anant Other [employer] Other 01-13-2022 15:10-0400 Body mass index (BMI) [Ratio] 49.77 kg/m2 Jake Ny Other [employer] Other 01-13-2022 15:10-0400 Body temperature 99.3 [degF] Jake Anant Other [employer] Other 01-13-2022 15:10-0400 Body weight 131.54 kg Jake Ny Other [employer] Other 01-13-2022 15:10-0400 Diastolic blood pressure 79 mm[Hg] Jake Anant Other [employer] Other 01-13-2022 15:10-0400 SaO2% (BldA) [Mass fraction] 96 % Jake Anant Other [employer] Other 01-13-2022 15:10-0400 Systolic blood pressure 112 mm[Hg] Jake Ny Other [employer] Other 10-03-2021 19:50-0500 Body height 162.56 cm Lor Belen Other [employer] Other 10-03-2021 19:50-0500 Body mass index (BMI) [Ratio] 49.77 kg/m2 Lor Belen Other [employer] Other 10-03-2021 19:50-0500 Body temperature 97.8 [degF] Lor Belen Other [employer] Other 10-03-2021 19:50-0500 Body weight 131.54 kg Lor Belen Other [employer] Other 10-03-2021 19:50-0500 Diastolic blood pressure 92 mm[Hg] Lor Belen Other [employer] Other 10-03-2021 19:50-0500 Respiratory rate 18 /min Olr Belen Other [employer] Other 10-03-2021 19:50-0500 SaO2% (BldA) [Mass fraction] 100 % Lor Belen Other [employer] Other 10-03-2021 19:50-0500 Systolic blood pressure 131 mm[Hg] Lor Belen Other [employer] Other 05-31-2021 12:37-0400 Body height 163.83 cm Gemma Michael [facility] 05-31-2021 12:37-0400 Body mass index (BMI) [Ratio] 49.52 kg/m2 Gemma [facility] [employer] 05-31-2021 12:37-0400 Body surface area Derived from formula 2.46 m2 [facility] 05-31-2021 12:37-0400 Body weight 132.9 kg [facility] [employer] 05-31-2021 12:37-0400 Diastolic blood pressure 78 mm[Hg] [facility] 05-31-2021 12:37-0400 Heart rate 72 /min [facility] 05-31-2021 12:37-0400 Systolic blood pressure 124 mm[Hg] [facility] 06-02-2020 10:50-0400 BMI (Body Mass Index) 47.81 kg/m2 [email or web address] 06-02-2020 10:50-0400 Body weight 130.32 kg [email or web address] 06-02-2020 10:50-0400 BP Diastolic 70 mm[Hg] [employer] 06-02-2020 10:50-0400 BP Systolic 130 mm[Hg] [employer] 06-02-2020 10:50-0400 BSA (Body Surface Area) 2.44 m2 [employer] 06-02-2020 10:50-0400 Height 165.1 cm [employer] 06-02-2020 10:50-0400 Pulse (Heart Rate) 72 /min Nate [place] [email or web address] 06-01-2019 16:10-0400 BMI (Body Mass Index) 49.51 kg/m2 Nate [employer] 06-01-2019 16:10-0400 Body weight 134.95 kg Nate [employer] 06-01-2019 16:10-0400 BP Diastolic 78 mm[Hg] Nate [employer] 06-01-2019 16:10-0400 BP Systolic 122 mm[Hg] Nate [employer] 06-01-2019 16:10-0400 BSA (Body Surface Area) 2.49 m2 Nate [email or web address] 06-01-2019 16:10-0400 Height 165.1 cm Nate [email or web address] 06-01-2019 16:10-0400 Pulse (Heart Rate) 84 /min Nate [facility] [employer] 05-29-2018 15:10-0400 BMI (Body Mass Index) 49.59 kg/m2 Nate [employer] 05-29-2018 15:10-0400 Body weight 135.17 kg Nate [employer] 05-29-2018 15:10-0400 BP Diastolic 74 mm[Hg] Nate [facility] 05-29-2018 15:10-0400 BP Systolic 126 mm[Hg] Nate [employer] 05-29-2018 15:10-0400 BSA (Body Surface Area) 2.49 m2 Nate [email or web address] 05-29-2018 [id number] Height 165.1 cm Nate [email or web address] 05-29-2018 15:10-0400 Pulse (Heart Rate) 72 /min Nate [employer] 05-29-2017 13:34-0400 BMI (Body Mass Index) 52.05 kg/m2 Nate [email or web address] 05-29-2017 13:34-0400 Body weight 139.71 kg Nate [email or web address] 05-29-2017 13:34-0400 BP Diastolic 84 mm[Hg] Nate [employer] 05-29-2017 13:34-0400 BP Systolic 128 mm[Hg] Nate [employer] 05-29-2017 13:34-0400 BSA (Body Surface Area) 2.52 m2 Nate [email or web address] 05-29-2017 13:34-0400 Height 163.83 cm Nate [employer] 05-29-2017 13:34-0400 Pulse (Heart Rate) 76 /min Nate [employer] 05-30-2016 13:34-0400 BMI (Body Mass Index) 50.22 kg/m2 Nate [employer] 05-30-2016 13:34-0400 Body weight 135.85 kg Nate [email or web address] 05-30-2016 13:34-0400 BP Diastolic 78 mm[Hg] [employer] 05-30-2016 13:34-0400 BP Systolic 122 mm[Hg] Nate Rubio [employer] 05-30-2016 13:34-0400 BSA (Body Surface Area) 2.49 m2 Nate Rubio [employer] 05-30-2016 13:34-0400 Height 164.47 cm Nate [employer] 05-30-2016 13:34-0400 Pulse (Heart Rate) 76 /min Nate [facility] 05-26-2015 14:18-0400 BMI (Body Mass Index) 49.69 kg/m2 Nate [employer] 05-26-2015 14:18-0400 Body weight 131.32 kg Nate [employer] 05-26-2015 14:18-0400 BP Diastolic 82 mm[Hg] Nate [employer] 05-26-2015 14:18-0400 BP Systolic 112 mm[Hg] Nate [employer] 05-26-2015 14:18-0400 BSA (Body Surface Area) 2.44 m2 Nate [email or web address] 05-26-2015 14:180400 Height 162.56 cm Nate [employer] 05-26-2015 14:18-0400 Pulse (Heart Rate) 64 /min Nate Rubio [employer] 03-19-2014 10:26-0400 BMI (Body Mass Index) 44.03 kg/m2 Nate [employer] 03-19-2014 10:26-0400 Body weight 116.35 kg Nate [employer] 03-19-2014 10:26-0400 BP Diastolic 60 mm[Hg] Nate [employer] 03-19-2014 10:26-0400 BP Systolic 112 mm[Hg] Nate [employer] 03-19-2014 10:26-0400 BSA (Body Surface Area) 2.29 m2 Nate [employer] 03-19-2014 10:26040 Height 162.56 cm Nate [employer] 03-19-2014 10:26-0400 Pulse (Heart Rate) 70 /min Nate [employer] 01-14-2013 08:57-0400 BMI (Body Mass Index) 44.62 kg/m2 Nate [employer] 01-14-2013 08:57-0400 Body weight 119.75 kg Nate [email or web address] 01-14-2013 08:57-0400 BP Diastolic 76 mm[Hg] Nate [employer] 01-14-2013 08:57-0400 BP Systolic 116 mm[Hg] Nate [employer] 01-14-2013 08:57-0400 BSA (Body Surface Area) 2.33 m2 Nate [email or web address] 01-14-2013 08:57-0400 Height 163.83 cm Nate [email or web address] 01-14-2013 08:57-0400 Pulse (Heart Rate) 68 /min [employer] Encounters Encounter Date Encounter Type Care Provider Facility Start: 11-05-2023 End: 11-05-2023 ambulatory EDNA MARIA Not Available Start: 05-27-2023 Office outpatient vi sit 25 minutes Gemma S Schworm Other [facility] Office Start: 12-25-2022 End: 12-26-[address] NIKKI VALERO . Facility:[facility] Start: 11-26-2022 End: 11-26-[address] NIKKI VALERO . Facility:[facility] Start: 09-07-2022 End: 09-08-[address] DOCTOR PLATA Facility:[facility] Start: 05-29-2022 Office outpatient vi sit 25 minutes Gemma S Schworm Other [facility] Office Start: 05-21-2022 Encounter for genera l adult medical examination without abnormal findings DR EDNA MARIA [facility] Start: 05-18-2022 End: 05-19-[address] DOCTOR PLATA Facility:[facility] Start: 05-18-2022 End: 05-19-2022 Encounter for general adult medical examination without abnormal findings DR EDNA MARIA Facility:[facility] Start: 01-13-2022 End: 01-13-2022 ambulatory KEZIA SALAMANCA [employer] Other Start: 01-13-2022 Patient encounter procedure Jake Ny [facility] Start: 10-03-2021 End: 10-03-2021 ambulatory Lor Glover Other [employer] Other Start: 10-03-2021 Office outpatient vi sit 15 minutes Lor Glover [facility] Start: 05-31-2021 Office outpatient vi sit 25 minutes Gemma S Schworm Other [facility] Office Start: 06-02-2020 Office outpatient vi sit 25 minutes Gemma S Schworm Other [facility] Office Start: 06-01-2019 Office outpatient vi sit 25 minutes Gemma S Schworm Other [facility] Office Start: 05-29-2018 Office outpatient vi sit 25 minutes Gemma S Schworm Other [facility] Office Start: 05-29-2017 Office outpatient vi sit 25 minutes Gemma S Schworm Other [facility] Office Start: 05-30-2016 Office outpatient vi sit 25 minutes Gemma S Schworm Other [facility] Office Start: 05-26-2015 Office outpatient vi sit 25 minutes Gemma S Schworm Other [facility] Office Start: 03-19-2014 Office Services Nate L Schroe vicky Other [facility] Office Start: 01-14-2013 Office Services Nate L Schroe vicky Other [facility] Office Procedures Date Procedure Procedure Detail Performing Clinician Start: 2022 Thyroid stimulating hormone measurement Gemma Schworm Start: 2022 Thyroxine measurement W endi Schworm Start: 05-31-2022 Thyroid stimulating hormone measurement Gemma Schworm Start: 08-31-2021 Thyroid stimulating hormone measurement Gemma Schworm Start: 08-31-2021 Thyroxine measurement W endi Schworm Start: 05-31-2021 Docrev cur meds by kate dukes Gemma Schworm Start: 05-24-2021 Thyroid stimulating hormone measurement Gemma Schworm Start: 05-24-2021 Thyroxine measurement W endi Schworm Start: 06-02-2020 Doc meds verified w/pt or re Nate Rubio Start: 06-01-2020 Assay of thyroid sti mulating hormone tsh Nate Rubio Start: 06-01-2020 Assay of thyroxine total Nate Rubio Start: 06-01-2020 Thyroid stimulating hormone measurement Gemma Schworm Start: 06-01-2020 Thyroxine measurement W endi Schworm Start: 05-29-2019 Assay of thyroid sti mulating hormone tsh Nate Rubio Start: 05-29-2019 Assay of thyroxine total Nate Rubio Start: 05-29-2019 Thyroid stimulating hormone measurement Gemma Schworm Start: 05-29-2019 Thyroxine measurement W endi Schworm Start: 05-29-2018 Assay of thyroid sti mulating hormone tsh Nate Rubio Start: 05-29-2018 Assay of thyroxine total Nate Rubio Start: 05-29-2018 Doc meds verified w/pt or re Nateleighton Rubio Start: 05-29-2018 Thyroid stimulating hormone measurement Gemma Schworm Start: 05-29-2018 Thyroxine measurement W endi Schworm Start: 05-30-2017 Assay of thyroid sti mulating hormone tsh Nate Rubio Start: 05-30-2017 Assay of thyroxine total Nate Rubio Start: 05-30-2017 Thyroid stimulating hormone measurement Gemma Schworm Start: 05-30-2017 Thyroxine measurement W endi Schworm Start: 05-29-2017 Doc meds verified w/pt or re Nate Rubio Start: 05-26-2016 Assay of thyroid sti mulating hormone tsh Nate Rubio Start: 05-26-2016 Assay of thyroxine total Nate Rubio Start: 05-26-2016 Thyroid stimulating hormone measurement Gemma Schworm Start: 05-26-2016 Thyroxine measurement W endi Schworm Start: 03-19-2015 Assay of thyroid sti mulating hormone tsh Nate Rubio Start: 03-19-2015 Assay of thyroxine total Nate Rubio Start: 03-19-2015 Thyroid stimulating hormone measurement Gemma Schworm Start: 03-19-2015 Total thyroxine measurement Gemma Schworm Start: 03-12-2014 Assay of thyroid sti mulating hormone tsh Nate Rubio Start: 03-12-2014 Assay of thyroxine total Nate Rubio Start: 03-12-2014 Thyroid stimulating hormone measurement Gemma Schworm Start: 03-12-2014 Total thyroxine measurement Gemma Schworm Plan of Treatment Date Care Activity Detail Author Start: 05-27-2024 Assay of thyroid stimulating hormone tsh TSH [facility] Start: 05-27-2024 Assay of thyroxine total T4 [facility] Start: 08-27-2023 Assay of thyroid stimulating hormone tsh TSH [facility] Start: 08-27-2023 Assay of thyroxine total T4 [facility] Start: 05-29-2023 Assay of thyroid stimulating hormone tsh TSH [facility] Start: 05-29-2023 Assay of thyroxine total T4 [facility] Start: 2022 Assay of thyroid stimulating hormone tsh TSH [facility] Start: 2022 Assay of thyroxine total T4 [facility] Start: 05-31-2022 Assay of thyroxine total T4 [facility] Start: 05-31-2022 Thyroid stimulating hormone measurement ASSAY THYROID STIM HORMONE [facility] Start: 06-02-2020 Iiv4 vacc split virus 0.5 ml dos for im use Flu vaccine-non medicare [facility] Start: 06-02-2020 Im adm prq id subq/im njxs 1 vaccine Administration of single vaccine [facility] Start: 06-01-2020 T4 [Mass/Vol] T4 [facility] Start: 06-01-2020 TSH Qn TSH [facility] Start: 05-29-2019 T4 [Mass/Vol] T4 [facility] Start: 05-29-2019 TSH Qn TSH [facility] Immunizations Immunization Date Immunization Notes Care Provider Fa aver[facility] 05-29-2022 influenza virus vacc ine, unspecified formulation; Translations: [Influenza virus vaccine, quadrivalent (ccIIV4), derived from cell cultures, subunit, preservative and antibiotic free, 0.5 mL dosage, for intramuscular use] [facility] 05-29-2022 influenza, injectabl e, quadrivalent, [facility]-29-[facility]22 IMMUNIZATION ADMIN; Translations: [IMMUNIZATION ADMIN] Gemma Schworm [facility] 06-02-2020 influenza, injectabl e, quadrivalent, contains preservative; Translations: [FLU VACC 4 LUCRETIA 3 YRS PLUS IM] [facility] 06-02-2020 IMMUNIZATION ADMIN; Translations: [IMMUNIZATION ADMIN] [facility] 06-01-2019 influenza, injectabl e, quadrivalent, contains preservative; Translations: [FLU VACC 4 LUCRETIA 3 YRS PLUS IM] [facility] 06-01-2019 influenza, seasonal, injectable [facility] 06-01-2019 IMMUNIZATION ADMIN; Translations: [IMMUNIZATION ADMIN] [facility] 05-29-2018 influenza, seasonal, injectable; Translations: [FLU VACCINE 3 YRS & > IM] [facility] 05-29-2018 IMMUNIZATION ADMIN; Translations: [IMMUNIZATION ADMIN] [facility] 05-25-2016 influenza, seasonal, injectable [facility] 06-04-2000 tetanus and diphther ia toxoids, adsorbed, preservative free, for adult use (2 Lf of tetanus toxoid and 2 Lf of diphtheria toxoid) [facility] Payers Date Payer Category Payer Unknown [id number] 2.16.84 [id number] 1986 Unknown [id number] 2.16.84 [id number] 1986 Unknown [id number] 2.16.84 [id number] 1986 Unknown [id number] 2.16.84 [id number] 1986 Unknown [id number] 2.16.84 [id number] 1986 Unknown [id number] 2.16.84 [id number] 1986 Unknown [id number] 2.16.84 [id number] 1959 Unknown [id number] [id number] 1959 Unknown [id number] Unknown [id number] Social History Date Type Detail Facility Start: Never smoker [employer] Start: Alcohol [employer] Start: Caffeine [employer] Sex Assigned At Sex Assigned At [facility] th [employer] Other Evaluation note 01-13-2022 Note Date & Type Note Facility 01-13-2022 Evaluation note Encounter Date Diagnosis Assessment Notes December, Cutaneous abscess of abdominal wall (ICD-10 - L02.211) Advised her to go to the ER due to significant pain, extension of erythema, and skin induration of abscess. [employer] Other Evaluation note 10-03-2021 Note Date & Type Note Facility 10-03-2021 Evaluation note Encounter Date Diagnosis Assessment Notes Sep, Abscess (ICD-10 - L02.91) Sep, Abdominal wall abscess (ICD-10 - L02.211) Keep the area clean and dry. Wash the area with soap and water daily. Apply the antibiotic ointment to the wound twice a day until it heals. Take the antibiotics, Bactrim and Keflex as prescribed until gone. Call your family doctor tomorrow for an appointment for recheck to be seen as soon as possible. Go to the ER for worsening symptoms or concerns. [employer] Other History general Narrative - Reported Note Date & Type Note Facility History general Narrative - Reported Type Medical History Hypothyroid Medical History Scleroderma Medical History seasonal allergies Surgical History 2006 Surgical History Myringotomy 1996 Surgical History Broken Left ankle 2002 Hospitalization History See past surgical hx [employer] Other Summary Purpose Family History No Family History Records FoundNo Family History Records FoundNo Family History Records Found Advance Directives No Advanced Directives Records FoundNo Advanced Directives Records FoundNo Advanced Directives Records Found Additional Source Comments INFORMATION SOURCE (unrecogn ized section and content) DATE CREATED AUTHOR 12/06/2021 [facility] DATE CREATED AUTHOR AUTHOR'S ORGANIZ ATION 01/02/2023 [facility] DATE CREATED AUTHOR AUTHOR'S ORGANIZ ATION 11/06/2023 [facility] EPIC REASON FOR VISIT (unrecogniz ed section and content) SORE ON STOMACHOPEN SORE ON ABDOMEN FOR RECORDS PERTAINING TO PATIENTS WHO ARE OR HAVE BEEN ENROLLED IN A CHEMICAL DEPENDENCY/SUBSTANCEABUSE PROGRAM, SOME INFORMATION MAY BE OMITTED. This clinical summary was aggregated from multiple sources. Caution should be exercised in using it in the provision of clinical care. This summary normalizes information from multiple sources, and as a consequence, information in this document may materially change the coding, format and clinical context of patient data. In addition, data may be omitted in some cases. CLINICAL DECISIONS SHOULD BE BASED ON THE PRIMARY CLINICAL RECORDS. [employer] provides no warranty or guarantee of the accuracy or completeness of information in this document.
[2023-12-17 14:09] LABS: Age Gdln ACOG Testing Note (.); HPV Aptima Negative (Negative); IGP, Aptima HPV, rfx 16/18,45 Note (.)
== END 2023-12-10 21:55 | disposition home or self-care (01) ==
LOC: LAB 21:54
PROVIDERS: PCP Family Medicine; Visit Provider Obstetrics & Gynecology
DX: Z01.419 Encounter for gynecological examination (general) (routine) without abnormal findings (principal)
CPT/HCPCS: 87624; G0145

== ENCOUNTER 2024-01-07 10:48 | Outpatient (OUT) | payer OTHER, SELFPAY ==
--- NOTE | 2024-01-07 10:50 | MM_ITS ---
Patient Name: JEET STEVENSON MR#: [id number] : 1985 Exam Date: 01/07/2024 Ordering Doctor: DR Fredi Snow . RADIOLOGY REPORT PROCEDURE: MM TOMOSYNTHESIS SCREENING BI COMPARISON: MG MAMM SCREEN 3D LINDA CAD, 12/25/2022. MG MAMM SCREEN 3D LINDA CAD, 12/13/2021. MG MAMM SCREEN LINDA W CAD, 09/13/2020. MG MAMM LINDA SCRN W CAD DIG, 01/27/2013. INDICATIONS: Screening Calculator Name NCI Breast Cancer Risk Assessment Tool 5 Year Breast Cancer Risk 0.80% Lifetime Breast Cancer Risk 20.20% Personal Breast Cancer No Personal Ovarian Cancer No Treatments None Family Cancers Mother with breast cancer at age 30; Grandfather-maternal with lung cancer at age ~65; Grandfather-paternal with lung cancer at age ~65. LOCATION: [facility] BREAST COMPOSITION: There are scattered areas of fibroglandular density. FINDINGS: DIAGNOSTIC CATEGORY 1--NEGATIVE. RIGHT BREAST: No significant suspicious finding. No significant change has occurred. LEFT BREAST: No significant suspicious finding. No significant change has occurred. RECOMMENDATIONS: ROUTINE MAMMOGRAM AND CLINICAL EVALUATION IN 12 MONTHS. PLEASE NOTE: A NORMAL MAMMOGRAM DOES NOT EXCLUDE THE POSSIBILITY OF BREAST CANCER. A CLINICALLY SUSPICIOUS PALPABLE LUMP SHOULD BE BIOPSIED. Dictated by: Lance Hernandez M.D. on 01/07/2024 at 13:06 Approved by: Lance Hernandez M.D. on 01/07/2024 at 13:08
== END 2024-01-07 10:49 | disposition home or self-care (01) ==
LOC: MAMMO 10:48
PROVIDERS: PCP Family Medicine; Visit Provider Obstetrics & Gynecology
DX: Z12.31 Encounter for screening mammogram for malignant neoplasm of breast (principal); Z80.3 Family history of malignant neoplasm of breast; Z80.1 Family history of malignant neoplasm of trachea, bronchus and lung
CPT/HCPCS: 77063; 77067

== ENCOUNTER 2024-01-10 21:16 | Emergency (ER) | payer OTHER, SELFPAY ==
[2024-01-10 21:20] VITALS: BP 136/84; PULSE 89; TEMP 36.6; O2SAT 97; BMI 48.9
--- NOTE | 2024-01-10 21:34 | ED.SKABFB1 ---
HPI - Skin/Abscess/Foreign Bdy General Chief complaint: Skin/Abscess/Foreign Body Stated complaint: Rash Time Seen by Provider: 01/10/24 21:25 Source: patient Mode of arrival: walk-in Limitations: no limitations History of Present Illness HPI narrative: 38-year-old female presents to the department for a rash. It started 4 days ago and it has been on her arms and lower back and on her very low chest. It has been pruritic and it has been burning. No new medications or any other new products such as soaps or skin care products. It is not particularly hot where she works. She has not been exposed to any pets. The rash is continuous. She was mostly worried it might be shingles. Related Data Home Medications ?Medication ?Instructions ?Recorded ?Confirmed fexofenadine 60 mg tablet (Camille 60 mg PO Q24H 01/10/24 01/10/24 Allergy) levothyroxine 150 mcg tablet 175 mcg PO DAILY 01/10/24 01/10/24 norethindrone (contraceptive) 0.35 0.35 mg PO DAILY 01/10/24 01/10/24 mg tablet sertraline 100 mg tablet (Zoloft) 200 mg PO Q24H 01/10/24 01/10/24 Previous Rx's ?Medication ?Instructions ?Recorded prednisone 10 mg tablet See Rx Instructions .Route 01/10/24 .COMPLEX #30 tabs Allergies Allergy/AdvReac Type Severity Reaction Status Date / Time methimazole Allergy Unknown Verified 01/10/24 21:31 Review of Systems ROS Narrative A ten point review of systems is negative except as noted above. Exam Narrative Exam Narrative: Nurses note and vital signs reviewed and patient is not hypoxic. General: The patient appears well and in no apparent distress. Patient is resting comfortably on cart. Skin: Warm, dry, no pallor noted. There is maculopapular erythematous rash present on her upper arms and on the very high upper abdomen and on the lower back as well. No pustules or blisters present. Head: Normocephalic, atraumatic Eye: Normal conjunctiva, no drainage Ears, Nose, Mouth, and Throat: oral mucosa is moist. Nares patent. Cardiovascular: Regular Rate and Rhythm Respiratory: Patient is in no distress, no accessory muscle use, lungs are clear to auscultation, no wheezing, rales or rhonchi Back: non-tender GI: Soft and nontender Musculoskeletal: The patient has no evidence of calf tenderness, no pitting edema, symmetrical pulses noted bilaterally Neurological: A&O, normal speech Psychiatric: Cooperative Constitutional Vital Signs, click to edit/add: Last Vital Signs Temp 97.8 F 01/10/24 21:20 Pulse 89 01/10/24 21:20 Resp 16 01/10/24 21:20 BP 136/84 01/10/24 21:20 Pulse Ox 97 01/10/24 21:20 O2 Del Method Room Air 01/10/24 21:20 Course Vital Signs Vital signs: Vital Signs Temperature 97.8 F 01/10/24 21:20 Pulse Rate 89 01/10/24 21:20 Respiratory Rate 16 01/10/24 21:20 Blood Pressure 136/84 01/10/24 21:20 Pulse Oximetry 97 01/10/24 21:20 Oxygen Delivery Method Room Air 01/10/24 21:20 Temperature 97.8 F 01/10/24 21:20 Pulse Rate 89 01/10/24 21:20 Respiratory Rate 16 01/10/24 21:20 Blood Pressure 136/84 01/10/24 21:20 Pulse Oximetry 97 01/10/24 21:20 Oxygen Delivery Method Room Air 01/10/24 21:20 MDM - Skin/Abscess/Foreign Bdy MDM Narrative Medical decision making narrative: The rash is not shingles. It does not appear to be a contact dermatitis or any infectious type of rash. The possibility of heat rash was discussed with the patient. states its gotten worse since has been getting warmer. She will be given IM Solu-Medrol and prescribed prednisone. Treatment diagnosis and follow-up were discussed with the patient. I have no clinical suspicion of an infection. Differential Diagnosis Differential diagnosis: Likely viral exanthem, urticaria, allergic reaction to drug, eczema, insect bites, contact dermatitis and other (Nonspecific rash) Discharge Plan Discharge Stand Alone Forms: Portal Instructions Chief Complaint: Skin/Abscess/Foreign Body Clinical Impression: Rash Patient Disposition: Home, Self-Care Time of Disposition Decision: 21:33 Condition: Good Mode of Transportation: Private Vehicle Prescriptions / Home Meds: New prednisone 10 mg tablet See Rx Instructions .ROUTE .COMPLEX Qty: 30 0RF Rx Instructions: 4 by mouth daily for three days then 3 by mouth daily for three days then 2 by mouth daily for three days then 1 by mouth daily for three days No Action levothyroxine 150 mcg tablet 175 mcg PO DAILY norethindrone (contraceptive) 0.35 mg tablet 0.35 mg PO DAILY sertraline [Zoloft] 100 mg tablet 200 mg PO Q24H fexofenadine [Camille Allergy] 60 mg tablet 60 mg PO Q24H Print Language: Croatian Instructions: Acute Rash (ED) Referrals: Iker Armstrong MD [Primary Care Provider] - 1 week
[2024-01-10] MEDS: METHYLPREDNISOLONE SOD SUCC PF 125 MG/2 ML VIAL IM (21:37)
== END 2024-01-10 21:46 | disposition home or self-care (01) ==
PROVIDERS: Emergency Provider Emergency Medicine; PCP Family Medicine
DX: R21 Rash and other nonspecific skin eruption (principal); Z79.890 Hormone replacement therapy; Z79.3 Long term (current) use of hormonal contraceptives; Z79.899 Other long term (current) drug therapy
CPT/HCPCS: 96372; 99284; J2919

== ENCOUNTER 2024-01-25 10:17 | Outpatient (OUT) | payer OTHER, SELFPAY ==
--- OUTSIDE RECORDS SUMMARY | 2024-01-25 10:20 | XMS_ITS | CCD ---
Author Organization [facility]iniS[facility]n Care Team Providers Care Senior Engineering Technician Name Role Phone Nate Rubio Primary Care [...] Admitting Unavailable MISC, DR MCGOWAN Consulting Unavailable NADEREKalyan, DR EDNA Smalls Primary Care Unavailable Gemma Michael Primary Care Physician EDNA Mansfield Attending Unavailable MARYLU, NIKKI Attending Unavailable NADERER, EDNA Attending Unavailable NADERER, EDNA Attending Unavailable Allergies Allergy Classification Reported Allergen(s) Allergy Type Date of Onset Reaction(s) Facility (4 sources) Amoxicillin; Translations: [amoxicillin] Drug Allergy hives [facility] (4 sources) Other Allergy to substance (disorder) [facility] [place] methIMAzole Drug Allergy rash [facility] Other (1 source) methIMAzole Drug Allergy 6 [facility] Repository Medications Current Medications Medication Drug Class(es) [...] Start: 06-02-2020 take 1 tablet by more once daily, then take 1 tablet by [...] times per day as needed lactobacillus acidophilus [id number] unt oral capsule (4 sources) End: 06-01-2019 [...] smoking status Non-Smoker Invalid Interpretation Code [facility] MG MAMM SCREEN 3D LINDA CADon 12-25-2022 MG MAMM SCREEN 3D LINDA CAD Patient: JEET STEVENSON Exam Date: 12/25/2022 : 1985 Gender:F Ordering : DR NIKKI VALERO . Admission #: [id number] Family : Order #: [id number] CLICK HERE TO VIEW EXAM RADIOLOGY REPORT [...] with lung cancer at age 66. LOCATION: [facility] BREAST COMPOSITION: Scattered areas fibroglandular density. FINDINGS: [...] Hernandez M.D. on 12/25/2022 at 13:34 Normal [facility] PAP ACOG PANEL 2: 30 to 65on 12-02-2022 . . Normal [facility] Comment on above: Result Comment: Perf ormed at: WB Performed By: #### [id number] #### [facility] [address] [place] [address] Dr. Vinnie Gallardo Age Gdln ACOG Testing 30-65 Normal [facility] Comment on above: Performed By: #### [id number] #### [facility] [address] [place] [address] Dr. Vinnie Gallardo DIAGNOSIS: Comment Normal [facility] Comment on above: Result Comment: NEGA TIVE FOR INTRAEPITHELIAL LESION OR MALIGNANCY. Performed at: WB Performed By: #### [id number] #### [facility] [address] [address] [address] Vinnie Gallardo HPV Aptima Negative Normal Negative [facility] Comment on above: Result Comment: This nucleic acid amplification test detects fourteen high-risk HPV types (16,18,31,33,35,39,45,51,52,56,58,59,66,68) without differentiation. Performed at: =G Performed By: #### [id number] #### [facility] [address] [place] [address] Dr. Vinnie Gallardo HPV Genotype Reflex Comment Normal [facility] Comment on above: Result Comment: Crit eria not met, HPV Genotype not performed. Performed at: WB Performed By: #### [id number] #### [facility] [address] [place] [address] Dr. Vinnie Gallardo Methodology: Comment Normal [facility] Comment on above: Result Comment: This liquid based ThinPrep(R) pap test was screened with the use of an image guided system. Performed at: WB Performed By: #### [id number] #### [facility] [address] [place] [address] Dr. Vinnie Gallardo Note: Comment Normal [facility] Comment on above: Result Comment: The Pap smear is a screening test designed to aid in the detection of premalignant and malignant conditions of the uterine cervix. It is not a diagnostic procedure and should not be used as the sole means of detecting cervical cancer. Both false-positive and false-negative reports do occur. . Performed at: WB Performed By: #### [id number] #### [facility] [address] [place] [address] Dr. Vinnie Gallardo Performed by: Comment Normal [facility] Comment on above: Result Comment: Laura ntha Elva Erica, Antique Collector (ASCP) Performed at: WB Performed By: #### [id number] #### [facility] [address] [place] [address] Dr. Vinnie Gallardo Specimen adequacy: Comment Normal [facility] Comment on above: Result Comment: Sati sfactory for evaluation. No endocervical component is identified. Performed at: WB Performed By: #### [id number] #### [facility] [address] [place] [address] Dr. Vinnie Gallardo Laboratory - Chemistry and C hemistry - challengeon 09-07-2022 TSH Qn 3.013 m[IU]/L Invalid Interpretation Code [facility] No Panel Informationon 09-07 ks Invalid Interpretation Code [facility] T4on 09-07-2022 T4 [Mass/Vol] 9.30 ug/dL Invalid Interpretation Code [facility] Comment on above: Performed By: #### T 4, TSH #### [facility] [address] [place] [address] Dr. Vinnie Gallardo TSHon 09-07-2022 TSH 3.013 uIU/mL Normal 0.358-3.740 [facility] Comment on above: Performed By: #### L IPID, LIVER, BMP #### [facility] [address] [place] [address] Dr. Vinnie Gallardo T4 [facility]on 05-19-2022 T4 [Mass/Vol] 7.5 ug/dL Normal 4.5-12.0 [facility] Comment on above: Performed By: #### T 4LC #### [facility] [address] [place] [address] Dr. Vinnie Gallardo CBC AUTO DIFFon 05-18-2022 BASO # 0.0 103/ul Normal 0.0-0.1 [facility] Comment on above: Performed By: #### L IPID, LIVER, BMP #### [facility] [address] [place] [address] Dr. Vinnie Gallardo Basophils/100 WBC (Bld) 0.4 % Normal 0.2-2.0 [facility] Comment on above: Performed By: #### L IPID, LIVER, BMP #### [facility] [address] [place] [address] Dr. Vinnie Gallardo EO # 0.2 103/ul Normal 0.0-0.7 [facility] Comment on above: Performed By: #### L IPID, LIVER, BMP #### [facility] [address] [place] [address] Dr. Vinnie Gallardo Eosinophils/100 WBC (Bld) 2.4 % Normal 0.9-7.0 [facility] Comment on above: Performed By: #### L IPID, LIVER, BMP #### [facility] [address] [place] [address] Dr. Vinnie Gallardo Erythrocyte distribution width (RBC) [Ratio] 13.2 % Normal 11.0-15.0 [facility] Comment on above: Performed By: #### L IPID, LIVER, BMP #### [facility] [address] [place] [address] Dr. Vinnie Gallardo Hematocrit (Bld) [Volume fraction] 38.9 % Normal 36.0-48.0 [facility] Comment on above: Performed By: #### L IPID, LIVER, BMP #### [facility] [address] [place] [address] Dr. Vinnie Gallardo Hemoglobin (Bld) [Mass/Vol] 13.1 g/dL Normal 12.0-16.0 [facility] Comment on above: Performed By: #### L IPID, LIVER, BMP #### [facility] [address] [place] [address] Dr. Vinnie Gallardo IG # 0.05 10e3/ul Critically high 0.00-0.[address] [facility] Comment on above: Performed By: #### L IPID, LIVER, BMP #### [facility] [address] [place] [address] Dr. Vinnie Gallardo IG % 0.5 % Normal 0.0-0.5 [facility] Comment on above: Performed By: #### L IPID, LIVER, BMP #### [facility] [address] [place] [address] Dr. Vinnie Gallardo LYMPH # 2.5 103/ul Normal 1.2-3.8 [facility] Comment on above: Performed By: #### L IPID, LIVER, BMP #### [facility] [address] [place] [address] Dr. Vinnie Gallardo Lymphocytes/100 WBC (Bld) 26.6 % Normal 20.5-60.0 [facility] Comment on above: Performed By: #### L IPID, LIVER, BMP #### [facility] [address] [place] [address] Dr. Vinnie Gallardo MANUAL DIFF REQ NO Normal [facility] Comment on above: Performed By: #### L IPID, LIVER, BMP #### [facility] [address] [place] [address] Dr. Vinnie Gallardo MCH (RBC) [Entitic mass] 29.7 pg Normal 26.7-34.0 [facility] Comment on above: Performed By: #### L IPID, LIVER, BMP #### [facility] [address] [place] [address] Dr. Vinnie Gallardo MCHC (RBC) [Mass/Vol] 33.7 g/dL Normal 29.9-35.2 [facility] Comment on above: Performed By: #### L IPID, LIVER, BMP #### [facility] [address] [place] [address] Dr. Vinnie Gallardo MCV (RBC) [Entitic vol] 88.2 fL Normal 81.0-99.0 [facility] Comment on above: Performed By: #### L IPID, LIVER, BMP #### [facility] [address] [place] [address] Dr. Vinnie Gallardo MONO # 0.6 103/ul Normal 0.3-0.8 [facility] Comment on above: Performed By: #### L IPID, LIVER, BMP #### [facility] [address] [place] [address] Dr. Vinnie Gallardo Monocytes/100 WBC (Bld) 6.5 % Normal 1.7-12.0 [facility] Comment on above: Performed By: #### L IPID, LIVER, BMP #### [facility] [address] [address] [address] Vinnie Gallardo NEUT # 6.0 103/ul Normal 1.4-6.5 [facility] Comment on above: Performed By: #### L IPID, LIVER, BMP #### [facility] [address] [address] [address] Vinnie Gallardo Neutrophils/100 WBC (Bld) 63.6 % Normal 43.0-75.0 [facility] Comment on above: Performed By: #### L IPID, LIVER, BMP #### [facility] [address] [place] [address] Dr. Vinnie Gallardo Platelet mean volume (Bld) [Entitic vol] 10.5 fL Normal 9.5-13.5 [facility] Comment on above: Performed By: #### L IPID, LIVER, BMP #### [facility] [address] [place] [address] Dr. Vinnie Gallardo PLT 276 103/ul Normal 150-450 [facility] Comment on above: Performed By: #### L IPID, LIVER, BMP #### [facility] [address] [place] [address] Dr. Vinnie Gallardo RBC 4.41 106/ul Normal 4.20-5.40 [facility] Comment on above: Performed By: #### L IPID, LIVER, BMP #### [facility] [address] [place] [address] Dr. Vinnie Gallardo WBC 9.4 103/ul Normal 4.0-11.0 [facility] Comment on above: Performed By: #### L IPID, LIVER, BMP #### [facility] [address] [place] [address] Dr. Vinnie Gallardo GLYCOHEMOGLOBIN A1Con 2021 ADA RECOMMENDATION SEE BELOW Normal [facility] Comment on above: Result Comment: ADA RECOMMENDED LIMIT 4.0 - 6.0 ADA THERAPEUTIC TARGET < 7.0 ACTION SUGGESTED > 7.0 Performed By: #### A 1C #### [facility] [address] [address] [address] Vinnie Gallardo Glucose [Mass/Vol] 94 mg/dL Normal [facility] Comment on above: Performed By: #### A 1C #### [facility] [address] [address] [address] Vinnie Gallardo HbA1c (Bld) [Mass fraction] 4.9 % Normal 4.5-6.2 [facility] Comment on above: Performed By: #### A 1C #### [facility] [address] [address] [address] Vinnie Gallardo LIPID PROFILEon 05-18-2022 CHOL-HDL RATIO NORM SEE BELOW Normal [facility] Comment on above: Result Comment: 3.3 - 4.4 LOW RISK 4.4 - 7.1 AVERAGE RISK 7.1 - 11.0 MODERATE RISK >11.0 HIGH RISK Performed By: #### L IPID, LIVER, BMP #### [facility] [address] [address] [address] Vinnie Gallardo Cholesterol [Mass/Vol] 143 mg/dL Normal <=200 [facility] Comment on above: Performed By: #### L IPID, LIVER, BMP #### [facility] [address] [address] [address] Vinnie Gallardo Cholesterol in HDL [Mass/Vol] 42 mg/dL Normal 40-60 [facility] Comment on above: Performed By: #### L IPID, LIVER, BMP #### [facility] [address] [address] [address] Vinnie Gallardo Cholesterol in LDL [Mass/Vol] 74.6 mg/dL Normal [facility] Comment on above: Performed By: #### L IPID, LIVER, BMP #### [facility] [address] [address] [address] Vinnie Gallardo Cholesterol.total/Ch olesterol in HDL [Mass ratio] 3.4 {ratio} Normal [facility] Comment on above: Performed By: #### L IPID, LIVER, BMP #### [facility] [address] [address] [address] Vinnie Gallardo HDL NORMAL > or = 60 mg/dl - LOW CARDIOVASCULAR RISK <40 mg/dl - HIGH CARDIOVASCULAR RISK Normal [facility] Comment on above: Performed By: #### L IPID, LIVER, BMP #### [facility] [address] [address] [address] Vinnie Gallardo LDL CALC NORMAL SEE BELOW Normal [facility] Comment on above: Result Comment: <100 mg/dl OPTIMAL 100 - 129 mg/dl NEAR OR ABOVE OPTIMAL 130 - 159 mg/dl BORDERLINE HIGH 160 - 189 mg/dl HIGH >190 mg/dl VERY HIGH Performed By: #### L IPID, LIVER, BMP #### [facility] [address] [address] [address] Vinnie Gallardo Triglyceride [Mass/Vol] 132 mg/dL Normal <=150 [facility] Comment on above: Performed By: #### L IPID, LIVER, BMP #### [facility] [address] [address] [address] Vinnie Gallardo VLDL CALC 26.4 mg/dL Normal [facility] Comment on above: Performed By: #### L IPID, LIVER, BMP #### [facility] [address] [address] [address] Vinnie Gallardo LIVER PROFILEon 05-18-2022 Albumin [Mass/Vol] 3.6 g/dL Normal 3.4-5.0 [facility] Comment on above: Performed By: #### L IPID, LIVER, BMP #### [facility] [address] [place] [address] Dr. Vinnie Gallardo Albumin/Globulin [Mass ratio] 0.9 {ratio} Normal [facility] Comment on above: Performed By: #### L IPID, LIVER, BMP #### [facility] [address] [address] [address] Vinnie Gallardo ALP [Catalytic activity/Vol] 84 U/L Normal 46-116 [facility] Comment on above: Performed By: #### L IPID, LIVER, BMP #### [facility] [address] [address] [address] Vinnie Gallardo ALT [Catalytic activity/Vol] 33 U/L Normal 14-59 [facility] Comment on above: Performed By: #### L IPID, LIVER, BMP #### [facility] [address] [address] [address] Vinnie Gallardo AST [Catalytic activity/Vol] 22 U/L Normal 15-37 [facility] Comment on above: Performed By: #### L IPID, LIVER, BMP #### [facility] [address] [address] [address] Vinnie Gallardo BILI, CONJUGATED 0.2 mg/dL Normal 0.0-0.2 [facility] Comment on above: Performed By: #### L IPID, LIVER, BMP #### [facility] [address] [address] [address] Vinnie Gallardo Bilirubin [Mass/Vol] 1.1 mg/dL Critically high 0.2-1.0 [facility] Comment on above: Performed By: #### L IPID, LIVER, BMP #### [facility] [address] [address] [address] Vinnie Gallardo Globulin (S) [Mass/Vol] 3.9 g/dL Normal [facility] Comment on above: Performed By: #### L IPID, LIVER, BMP #### [facility] [address] [address] [address] Vinnie Gallardo Protein [Mass/Vol] 7.5 g/dL Normal 6.4-8.2 [facility] Comment on above: Performed By: #### L IPID, LIVER, BMP #### [facility] [address] [address] [address] Vinnie Gallardo Laboratory - Chemistry and C hemistry - challengeon 05-18-2022 TSH Qn 4.724 H Invalid Interpretation Code [facility] No Panel Informationon 05-18 RM Invalid Interpretation Code [facility] PROF CHEM 8 (BAS METB)on Anion gap [Moles/Vol] 10.7 mmol/L Normal [facility] Comment on above: Performed By: #### L IPID, LIVER, BMP #### [facility] [address] [address] [address] Vinnie Gallardo Calcium [Mass/Vol] 8.5 mg/dL Normal 8.5-10.1 [facility] Comment on above: Performed By: #### L IPID, LIVER, BMP #### [facility] [address] [address] [address] Vinnie Gallardo Chloride [Moles/Vol] 104 mmol/L Normal 98-107 [facility] Comment on above: Performed By: #### L IPID, LIVER, BMP #### [facility] [address] [place] [address] Dr. Vinnie Gallardo CO2 [Moles/Vol] 26.9 mmol/L Normal 21.0-32.0 [facility] Comment on above: Performed By: #### L IPID, LIVER, BMP #### [facility] [address] [place] [address] Dr. Vinnie Gallardo Creatinine [Mass/Vol] 0.84 mg/dL Normal 0.55-1.02 [facility] Comment on above: Performed By: #### L IPID, LIVER, BMP #### [facility] [address] [place] [address] Dr. Vinnie Gallardo EGFR-AF CITIZEN [place] >60 Normal >=60 [facility] Comment on above: Performed By: #### L IPID, LIVER, BMP #### [facility] [address] [place] [address] Dr. Vinnie Gallardo EGFR-NON AF CITIZEN OF [place] >60 Normal >=60 [facility] Comment on above: Performed By: #### L IPID, LIVER, BMP #### [facility] [address] [place] [address] Dr. Vinnie Gallardo Glucose [Mass/Vol] 100 mg/dL Normal 74-106 [facility] Comment on above: Performed By: #### L IPID, LIVER, BMP #### [facility] [address] [place] [address] Dr. Vinnie Gallardo Potassium [Moles/Vol] 3.6 mmol/L Normal 3.5-5.1 [facility] Comment on above: Performed By: #### L IPID, LIVER, BMP #### [facility] [address] [place] [address] Dr. Vinnie Gallardo Sodium [Moles/Vol] 138 mmol/L Normal 136-145 [facility] Comment on above: Performed By: #### L IPID, LIVER, BMP #### [facility] [address] [place] [address] Dr. Vinnie Gallardo Urea nitrogen [Mass/Vol] 7.0 mg/dL Normal 7.0-18.0 [facility] Comment on above: Performed By: #### L IPID, LIVER, BMP #### [facility] [address] [place] [address] Dr. Vinnie Gallardo Urea nitrogen/Creatinine [Mass ratio] 8.3 mg/mg Normal [facility] Comment on above: Performed By: #### L IPID, LIVER, BMP #### [facility] [address] [place] [address] Dr. Vinnie Gallardo TSHon 05-18-2022 TSH 4.724 uIU/mL Critically high 0.358-3.740 [facility] Comment on above: Performed By: #### L IPID, LIVER, BMP #### [facility] [address] [place] [address] Dr. Vinnie Gallardo VITAMIN D 25 OHon 05-18-2022 VIT D 25-OH 12.4 ng/mL Normal [facility] Comment on above: Performed By: #### V ITAD #### [facility] [address] [place] [address] Dr. Vinnie Gallardo VIT D RANGES SEE BELOW Normal [facility] Comment on above: Result Comment: <20 ng/mL Vit D deficient 20 - <30 ng/mL Vit D insufficient 30 - 100 ng/mL Vit D sufficient >100 ng/mL Potential Toxicity Performed By: #### V ITAD #### [facility] [address] [place] [address] Dr. Vinnie Gallardo CBC AUTO DIFFon 01-13-2022 BASO # 0.0 103/ul Normal 0.0-0.1 [facility] Comment on above: Performed By: #### C BC #### [facility] [address] [address] [address] Vinnie Gallardo Basophils/100 WBC (Bld) 0.2 % Normal 0.2-2.0 [facility] Comment on above: Performed By: #### C BC #### [facility] [address] [address] [address] Vinnie Gallardo EO # 0.2 103/ul Normal 0.0-0.7 [facility] Comment on above: Performed By: #### C BC #### [facility] [address] [place] [address] Dr. Vinnie Gallardo Eosinophils/100 WBC (Bld) 1.5 % Normal 0.9-7.0 [facility] Comment on above: Performed By: #### C BC #### [facility] [address] [place] [address] Dr. Vinnie Gallardo Erythrocyte distribution width (RBC) [Ratio] 13.0 % Normal 11.0-15.0 [facility] Comment on above: Performed By: #### C BC #### [facility] [address] [place] [address] Dr. Vinnie Gallardo Hematocrit (Bld) [Volume fraction] 38.6 % Normal 36.0-48.0 [facility] Comment on above: Performed By: #### C BC #### [facility] [address] [place] [address] Dr. Vinnie Gallardo Hemoglobin (Bld) [Mass/Vol] 12.9 g/dL Normal 12.0-16.0 [facility] Comment on above: Performed By: #### C BC #### [facility] [address] [place] [address] Dr. Vinnie Gallardo IG # 0.05 10e3/ul Critically high 0.00-0.[address] [facility] Comment on above: Performed By: #### C BC #### [facility] [address] [place] [address] Dr. Vinnie Gallardo IG % 0.4 % Normal 0.0-0.5 [facility] Comment on above: Performed By: #### C BC #### [facility] [address] [place] [address] Dr. Vinnie Gallardo LYMPH # 2.4 103/ul Normal 1.2-3.8 [facility] Comment on above: Performed By: #### C BC #### [facility] [address] [place] [address] Dr. Vinnie Gallardo Lymphocytes/100 WBC (Bld) 19.5 % Critically low 20.5-60.0 [facility] Comment on above: Performed By: #### C BC #### [facility] [address] [place] [address] Dr. Vinnie Gallardo MANUAL DIFF REQ NO Normal [facility] Comment on above: Performed By: #### C BC #### [facility] [address] [place] [address] Dr. Vinnie Gallardo MCH (RBC) [Entitic mass] 29.7 pg Normal 26.7-34.0 [facility] Comment on above: Performed By: #### C BC #### [facility] [address] [place] [address] Dr. Vinnie Gallardo MCHC (RBC) [Mass/Vol] 33.4 g/dL Normal 29.9-35.2 [facility] Comment on above: Performed By: #### C BC #### [facility] [address] [place] [address] Dr. Vinnie Gallardo MCV (RBC) [Entitic vol] 88.7 fL Normal 81.0-99.0 [facility] Comment on above: Performed By: #### C BC #### [facility] [address] [place] [address] Dr. Vinnie Gallarod MONO # 1.0 103/ul Critically high 0.3-0.8 [facility] Comment on above: Performed By: #### C BC #### [facility] [address] [place] [address] Dr. Vinnie Gallardo Monocytes/100 WBC (Bld) 8.2 % Normal 1.7-12.0 [facility] Comment on above: Performed By: #### C BC #### [facility] [address] [place] [address] Dr. Vinnie Gallardo NEUT # 8.7 103/ul Critically high 1.4-6.5 [facility] Comment on above: Performed By: #### C BC #### [facility] [address] [place] [address] Dr. Vinnie Gallardo Neutrophils/100 WBC (Bld) 70.2 % Normal 43.0-75.0 [facility] Comment on above: Performed By: #### C BC #### [facility] [address] [place] [address] Dr. Vinnie Gallardo Platelet mean volume (Bld) [Entitic vol] 10.1 fL Normal 9.5-13.5 [facility] Comment on above: Performed By: #### C BC #### [facility] [address] [place] [address] Dr. Vinnie Gallardo PLT 264 103/ul Normal 150-450 [facility] Comment on above: Performed By: #### C BC #### [facility] [place] [address] Dr. Vinnie Gallardo RBC 4.35 106/ul Normal 4.20-5.40 [facility] Comment on above: Performed By: #### C BC #### [facility] [address] [place] [address] Dr. Vinnie Gallardo WBC 12.4 103/ul Critically high 4.0-11.0 [facility] Comment on above: Performed By: #### C BC #### [facility] [address] [place] [address] Dr. Vinnie Gallardo PROF CHEM 8 (BAS METB)on Anion gap [Moles/Vol] 12.0 mmol/L Normal [facility] Comment on above: Performed By: #### L IPID, LIVER, BMP #### [facility] [address] [place] [address] Dr. Vinnie Gallardo Calcium [Mass/Vol] 8.3 mg/dL Critically low 8.5-10.1 [facility] Comment on above: Performed By: #### L IPID, LIVER, BMP #### [facility] [address] [address] [address] Vinnie Gallardo Chloride [Moles/Vol] 105 mmol/L Normal 98-107 [facility] Comment on above: Performed By: #### L IPID, LIVER, BMP #### [facility] [address] [address] [address] Vinnie Gallardo CO2 [Moles/Vol] 26.6 mmol/L Normal 21.0-32.0 [facility] Comment on above: Performed By: #### L IPID, LIVER, BMP #### [facility] [address] [address] [address] Vinnie Gallardo Creatinine [Mass/Vol] 0.80 mg/dL Normal 0.55-1.02 [facility] Comment on above: Performed By: #### L IPID, LIVER, BMP #### [facility] [address] [address] [address] Vinnie Gallardo EGFR-AF CITIZEN OF [place] >60 Normal >=60 [facility] Comment on above: Performed By: #### L IPID, LIVER, BMP #### [facility] [address] [address] [address] Vinnie Gallardo EGFR-NON AF CITIZEN OF THE [place] >60 Normal >=60 [facility] Comment on above: Performed By: #### L IPID, LIVER, BMP #### [facility] [address] [address] [address] Vinnie Gallardo Glucose [Mass/Vol] 98 mg/dL Normal 74-106 [facility] Comment on above: Performed By: #### L IPID, LIVER, BMP #### [facility] [address] [address] [address] Vinnie Gallardo Potassium [Moles/Vol] 3.6 mmol/L Normal 3.5-5.1 [facility] Comment on above: Performed By: #### L IPID, LIVER, BMP #### [facility] [address] [place], [place] [address] Dr. Vinnie Gallardo Sodium [Moles/Vol] 140 mmol/L Normal 136-145 [facility] Comment on above: Performed By: #### L IPID, LIVER, BMP #### [facility] [address] [address] [address] Vinnie Gallardo Urea nitrogen [Mass/Vol] 13.0 mg/dL Normal 7.0-18.0 [facility] Comment on above: Performed By: #### L IPID, LIVER, BMP #### [facility] [address] [place], [place] [address] Dr. Vinnie Gallardo Urea nitrogen/Creatinine [Mass ratio] 16.2 mg/mg Normal [facility] Comment on above: Performed By: #### L IPID, LIVER, BMP #### [facility] [address] [address] [address] 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 PERFORMED BY: [place] [address] PATHOLOGIST VENEREAL DISEASE INVESTIGATOR LIAN GRAVES M.D. [facility] Comment on above: Performed By: #### A ERC #### [address] Laboratory - Chemistry and C hemistry - challengeon 05-24-2021 T4 [Mass/Vol] 8.8 ug/dL Invalid Interpretation Code [facility] TSH Qn 6.04 H Invalid Interpretation Code [facility] No Panel Informationon 05-24 ls Invalid Interpretation Code [facility] Otheron 05-26-2020 ls Invalid Interpretation Code [facility] Thyroidon 05-26-2020 T4 [Mass/Vol] 7.6 ug/dL Invalid Interpretation Code [facility] TSH Qn 3.07 m[IU]/L Invalid Interpretation Code [facility] Otheron 05-25-2019 ls Invalid Interpretation Code [facility] Thyroidon 05-25-2019 T4 [Mass/Vol] 8.2 ug/dL Invalid Interpretation Code [facility] TSH Qn 3.12 m[IU]/L Invalid Interpretation Code [facility] Cardiacon 04-06-2019 Cholesterol [Mass/Vol] 175.0 mg/dL Invalid Interpretation Code [facility] Cholesterol in HDL [Mass/Vol] 39.0 mg/dL Invalid Interpretation Code [facility] Cholesterol in LDL [Mass/Vol] 108.0 mg/dL Invalid Interpretation Code [facility] Triglyceride [Mass/Vol] 138.0 mg/dL Invalid Interpretation Code [facility] Hematologyon 04-06-2019 Basophils/100 WBC (Bld) 0.50 % Invalid Interpretation Code [facility] Eosinophils/100 WBC (Bld) 1.80 % Invalid Interpretation Code [facility] Hematocrit (Bld) [Volume fraction] 39.80 % Invalid Interpretation Code [facility] Hemoglobin (Bld) [Mass/Vol] 13.40 g/dL Invalid Interpretation Code [facility] Lymphocytes/100 WBC (Bld) 28.40 % Invalid Interpretation Code [facility] MCH (RBC) [Entitic mass] 29.30 pg Invalid Interpretation Code [facility] MCV (RBC) [Entitic vol] 87.10 fL Invalid Interpretation Code [facility] Monocytes/100 WBC (Bld) 8.20 % Invalid Interpretation Code [facility] Neutrophils/100 WBC (Bld) 64.50 % Invalid Interpretation Code [facility] Platelets (Bld) [#/Vol] 273.0 10*3/uL Invalid Interpretation Code [facility] RBC (Bld) [#/Vol] 4.570 10*6/uL Invalid Interpretation Code [facility] WBC (Bld) [#/Vol] 8.40 10*3/uL Invalid Interpretation Code [facility] Metabolic Panelon 04-06-2019 Albumin [Mass/Vol] 3.70 g/dL Invalid Interpretation Code [facility] ALT [Catalytic activity/Vol] 46.0 U/L Invalid Interpretation Code [facility] Anion gap [Moles/Vol] 11.8 mmol/L Invalid Interpretation Code [facility] AST [Catalytic activity/Vol] 36.0 U/L Invalid Interpretation Code [facility] Calcium [Mass/Vol] 9.0 mg/dL Invalid Interpretation Code [facility] Chloride [Moles/Vol] 104.0 mmol/L Invalid Interpretation Code [facility] CO2 [Moles/Vol] 27.10 mmol/L Invalid Interpretation Code [facility] Creatinine [Mass/Vol] 0.820 mg/dL Invalid Interpretation Code [facility] GFR/1.73 sq M predicted among non-blacks MDRD (S/P/Bld) [Vol rate/Area] mL/min/{1.73_m2} Invalid Interpretation Code [facility] Glucose [Mass/Vol] 92.0 mg/dL Invalid Interpretation Code [facility] HbA1c (Bld) [Mass fraction] 5.30 % Invalid Interpretation Code [facility] Potassium [Moles/Vol] 3.90 mmol/L Invalid Interpretation Code [facility] Sodium [Moles/Vol] 139.0 mmol/L Invalid Interpretation Code [facility] Urea nitrogen [Mass/Vol] 7.0 mg/dL Invalid Interpretation Code [facility] Otheron 04-06-2019 Calcidiol [Mass/Vol] 5.5 L Invalid Interpretation Code [facility] Erythrocyte distribution width (RBC) [Ratio] 13.40 % Invalid Interpretation Code [facility] MCHC (RBC) [Mass/Vol] 33.70 g/dL Invalid Interpretation Code [facility] ls Invalid Interpretation Code [facility] Thyroidon 04-06-2019 TSH Qn 4.767 H Invalid Interpretation Code [facility] Otheron 05-21-2018 jls Invalid Interpretation Code [facility] Thyroidon 05-21-2018 T4 [Mass/Vol] 7.7 ug/dL Invalid Interpretation Code [facility] TSH Qn 5.39 H Invalid Interpretation Code [facility] on 05-21-2017 ls Invalid Interpretation Code [facility] Thyroidon 05-21-2017 T4 [Mass/Vol] 8.5 ug/dL Invalid Interpretation Code [facility] TSH Qn 3.58 m[IU]/L Invalid Interpretation Code [facility] Otheron 05-21-2016 ls Invalid Interpretation Code [facility] Thyroidon 05-21-2016 Free T4 [Mass/Vol] 0.77 ng/dL Invalid Interpretation Code [facility] TSH Qn 5.90 H Invalid Interpretation Code [facility] Otheron 05-18-2015 RM Invalid Interpretation Code [facility] Thyroidon 05-18-2015 T4 [Mass/Vol] 7.40 ug/dL Invalid Interpretation Code [facility] TSH Qn 2.880 m[IU]/L Invalid Interpretation Code [facility] Vital Signs Date Time Vital Sign Value Performing Clinician Facility 05-27-2023 10:120400 Body height 163.83 cm GemmaEverlater [facility] 05-27-2023 10:12-0400 Body mass index (BMI) [Ratio] 49.18 kg/m2 Gemma Takepin [facility] 05-27-2023 10:12-0400 Body surface area Derived from formula 2.45 m2 Gemma Takepin [facility] 05-27-2023 10:12-0400 Body weight 132 kg [facility] 05-27-2023 10:12-0400 Diastolic blood pressure 84 mm[Hg] [facility] 05-27-2023 10:12-0400 Heart rate 84 /min [facility] 05-27-2023 10:12-0400 Systolic blood pressure 142 mm[Hg] [facility] 05-29-2022 12:17-0400 Body height 163.83 cm Gemma Takepin [facility] 05-29-2022 12:17-0400 Body mass index (BMI) [Ratio] 47.91 kg/m2 [facility] 05-29-2022 12:17-0400 Body surface area Derived from formula 2.42 m2 [facility] 05-29-2022 12:17-0400 Body weight 128.6 kg [facility] 05-29-2022 12:17-0400 Diastolic blood pressure 78 mm[Hg] [facility] 05-29-2022 12:17-0400 Heart rate 78 /min [facility] 05-29-2022 12:17-0400 Systolic blood pressure 118 mm[Hg] [facility] 01-13-2022 15:10-0400 Body height 162.56 cm Jake Ny Other [facility] [employer] Other 01-13-2022 15:10-0400 Body mass index (BMI) [Ratio] 49.77 kg/m2 Jake Ny Other [facility] Other 01-13-2022 15:10-0400 Body temperature 99.3 [degF] Jake Ny Other [facility] [employer] Other 01-13-2022 15:10-0400 Body weight 131.54 kg Jake Ny Other [employer] Other 01-13-2022 15:10-0400 Diastolic blood pressure 79 mm[Hg] Jake Ny Other [facility] [employer] Other 01-13-2022 15:10-0400 SaO2% (BldA) [Mass fraction] 96 % Jake Ny Other [facility] [employer] Other 01-13-2022 15:10-0400 Systolic blood pressure 112 mm[Hg] Jake Ny Other [facility] [employer] Other 10-03-2021 19:50-0500 Body height 162.56 cm Lor Belen Other [facility] Other 10-03-2021 19:50-0500 Body mass index (BMI) [Ratio] 49.77 kg/m2 Lor Belen Other [facility] Other 10-03-2021 19:50-0500 Body temperature 97.8 [degF] Lor Belen Other [facility] [employer] Other 10-03-2021 19:50-0500 Body weight 131.54 kg Lor Belen Other [facility] [employer] Other 10-03-2021 19:50-0500 Diastolic blood pressure 92 mm[Hg] Lor Belen Other [facility] Other 10-03-2021 19:50-0500 Respiratory rate 18 /min Lor Belen Other [facility] Other 10-03-2021 19:50-0500 SaO2% (BldA) [Mass fraction] 100 % Lor Belen Other [facility] Other 10-03-2021 19:50-0500 Systolic blood pressure 131 mm[Hg] Lor Belen Other [facility] Other 05-31-2021 12:37-0400 Body height 163.83 cm [facility] [employer] 05-31-2021 12:37-0400 Body mass index (BMI) [Ratio] 49.52 kg/m2 [facility] 05-31-2021 12:37-0400 Body surface area Derived from formula 2.46 m2 [facility] 05-31-2021 12:37-0400 Body weight 132.9 kg [facility] 05-31-2021 12:37-0400 Diastolic blood pressure 78 mm[Hg] [facility] 05-31-2021 12:37-0400 Heart rate 72 /min [facility] [facility] 05-31-2021 12:37-0400 Systolic blood pressure 124 mm[Hg] [facility] 06-02-2020 10:50-0400 BMI (Body Mass Index) 47.81 kg/m2 Nate [facility] 06-02-2020 10:50-0400 Body weight 130.32 kg Nate [facility] 06-02-2020 10:50-0400 BP Diastolic 70 mm[Hg] Nate [facility] 06-02-2020 10:50-0400 BP Systolic 130 mm[Hg] Nate [facility] 06-02-2020 10:50-0400 BSA (Body Surface Area) 2.44 m2 [facility] 06-02-2020 10:50-0400 Height 165.1 cm Nate AlexanderALTHIA 06-02-2020 10:50-0400 Pulse (Heart Rate) 72 /min Nate Munoz [employer] 06-01-2019 16:10-0400 BMI (Body Mass Index) 49.51 kg/m2 Nate AlexanderALTHIA 06-01-2019 16:10-0400 Body weight 134.95 kg Nate [facility] 06-01-2019 16:10-0400 BP Diastolic 78 mm[Hg] Nate [facility] 06-01-2019 16:10-0400 BP Systolic 122 mm[Hg] Nate [facility] 06-01-2019 16:10-0400 BSA (Body Surface Area) 2.49 m2 Nate [employer] 06-01-2019 16:10-0400 Height 165.1 cm Nate [employer] 06-01-2019 16:10-0400 Pulse (Heart Rate) 84 /min Nate [employer] 05-29-2018 15:10-0400 BMI (Body Mass Index) 49.59 kg/m2 Nate [employer] 05-29-2018 15:10-0400 Body weight 135.17 kg Nate [facility] 05-29-2018 15:10-0400 BP Diastolic 74 mm[Hg] Nate [facility] 05-29-2018 15:10-0400 BP Systolic 126 mm[Hg] Nate [facility] 05-29-2018 15:100400 BSA (Body Surface Area) 2.49 m2 Nate [facility] 05-29-2018 15:100400 Height 165.1 cm Nate [employer] 05-29-2018 15:10-0400 Pulse (Heart Rate) 72 /min Nate HaqBioniz 05-29-2017 13:34-0400 BMI (Body Mass Index) 52.05 kg/m2 Nate [employer] 05-29-2017 13:34-0400 Body weight 139.71 kg Nate [employer] 05-29-2017 13:34-0400 BP Diastolic 84 mm[Hg] Nate [employer] 05-29-2017 13:34-0400 BP Systolic 128 mm[Hg] Nate [facility] 05-29-2017 13:34-0400 BSA (Body Surface Area) 2.52 m2 Nate [facility] 05-29-2017 13:34-0400 Height 163.83 cm Nate X[facility] 05-29-2017 13:34-0400 Pulse (Heart Rate) 76 /min Nate AlexanderCell Guidance SystemsMunozBioniz 05-30-2016 13:34-0400 BMI (Body Mass Index) 50.22 kg/m2 Nate [facility] 05-30-2016 13:34-0400 Body weight 135.85 kg Nate [facility] 05-30-2016 13:34-0400 BP Diastolic 78 mm[Hg] Nate [employer] 05-30-2016 13:34-0400 BP Systolic 122 mm[Hg] Nate [employer] 05-30-2016 13:34-0400 BSA (Body Surface Area) 2.49 m2 Nate [employer] 05-30-2016 13:34-0400 Height 164.47 cm Nate [facility] 05-30-2016 13:34-0400 Pulse (Heart Rate) 76 /min Nate [employer] 05-26-2015 14:18-0400 BMI (Body Mass Index) 49.69 kg/m2 Nate [facility] 05-26-2015 14:18-0400 Body weight 131.32 kg Nate [facility] 05-26-2015 14:18-0400 BP Diastolic 82 mm[Hg] [employer] 05-26-2015 14:18-0400 BP Systolic 112 mm[Hg] Nate [employer] 05-26-2015 14:18-0400 BSA (Body Surface Area) 2.44 m2 [employer] 05-26-2015 14:18-0400 Height 162.56 cm [employer] 05-26-2015 14:18-0400 Pulse (Heart Rate) 64 /min [employer] 03-19-2014 10:26-0400 BMI (Body Mass Index) 44.03 kg/m2 Nate AlexanderALTHIA 03-19-2014 10:26-0400 Body weight 116.35 kg Nate [employer] 03-19-2014 10:26-0400 BP Diastolic 60 mm[Hg] Nate [employer] 03-19-2014 10:26-0400 BP Systolic 112 mm[Hg] Nate [employer] 03-19-2014 10:26-0400 BSA (Body Surface Area) 2.29 m2 Nate [employer] 03-19-2014 10:26-0400 Height 162.56 cm Nate [employer] 03-19-2014 10:26-0400 Pulse (Heart Rate) 70 /min Nate [employer] [employer] 01-14-2013 08:57-0400 BMI (Body Mass Index) 44.62 kg/m2 Nate [employer] 01-14-2013 08:57-0400 Body weight 119.75 kg aNte XTWIP 01-14-2013 08:57-0400 BP Diastolic 76 mm[Hg] Nate [employer] 01-14-2013 08:57-0400 BP Systolic 116 mm[Hg] [employer] 01-14-2013 08:57-0400 BSA (Body Surface Area) 2.33 m2 Nate [employer] 01-14-2013 08:57-0400 Height 163.83 cm [employer] 01-14-2013 08:57-0400 Pulse (Heart Rate) 68 /min Nate Munoz Malorie [facility] [employer] Encounters Encounter Date Encounter Type Care Provider Facility Start: 01-22-2024 End: 01-22-2024 ambulatory EDNA MARIA Not Available Start: 01-15-2024 End: 01-15-2024 ambulatory EDNA MARIA Not Available Start: 12-10-2023 End: 12-10-2023 ambulatory NIKKI VALERO Not Available Start: 11-05-2023 End: 11-05-2023 ambulatory EDNA MARIA Not Available Start: 05-27-2023 Office outpatient vi sit 25 minutes Gemma Michael Other [facility] Office Start: 12-25-2022 End: 12-26-[address] NIKKI VALERO . Facility:[facility] Start: 11-26-2022 End: 11-26-[address] NIKKI VALERO . Facility:[facility] Start: 09-07-2022 End: 09-08-[address] DOCTOR PLATA Facility:[facility] Start: 05-29-2022 Office outpatient vi sit 25 minutes Gemma Michael Other [facility] Office Start: 05-21-2022 Encounter for genera l adult medical examination without abnormal findings DR EDNA MARIA [facility] Start: 05-18-2022 End: 05-19-[address] DOCTOR PLATA Facility:[facility] Start: 05-18-2022 End: 05-19-2022 Encounter for general adult medical examination without abnormal findings DR EDNA MARIA Facility:[facility] Start: 01-13-2022 End: 01-13-2022 ambulatory KEZIA Jay [employer] Other Start: 01-13-2022 Patient encounter procedure Jake Ny [facility] [address] Start: 10-03-2021 End: 10-03-2021 ambulatory Lor Glover Other [employer] Other Start: 10-03-2021 Office outpatient vi sit 15 minutes Lor Glover [facility] Start: 05-31-2021 Office outpatient vi sit 25 minutes Gemma S Schworm Other [facility] Office Start: 06-02-2020 Office outpatient vi sit 25 minutes Gemma S Schworm Other [facility] Office Start: 06-01-2019 Office outpatient vi sit 25 minutes Gemma S Schworm Other [facility] Office Start: 05-29-2018 Office outpatient vi sit 25 minutes Gemma S Schworm Other [facility] Office Start: 05-29-2017 Office outpatient vi sit 25 minutes Gemma S Schworm Other [facility] Office Start: 05-30-2016 Office outpatient vi sit 25 minutes Gemma S Schworm Other [facility] Office Start: 05-26-2015 Office outpatient vi sit 25 minutes Gemma S Schworm Other [facility] Office Start: 03-19-2014 Office Services Nate L Schroe vicky Other [facility] Office Start: 01-14-2013 Office Services Nate L Schroe vicky Other [facility] Office Procedures Date Procedure Procedure Detail Performing [...] Assay of thyroid sti mulating hormone tsh Nateleighton Rubio Start: 05-29-2019 Assay of thyroxine total Nate Rubio Start: 05-29-2019 Thyroid stimulating hormone measurement Gemma Schworm Start: 05-29-2019 Thyroxine measurement W endi Schworm Start: 05-29-2018 Assay of thyroid sti mulating hormone tsh Nate Rubio Start: 05-29-2018 Assay of thyroxine total Nate Rubio Start: 05-29-2018 Doc meds verified w/pt or re Nate Rubio Start: 05-29-2018 Thyroid stimulating hormone measurement Gemma Schworm Start: 05-29-2018 Thyroxine measurement W endi Schworm Start: 05-30-2017 Assay of thyroid sti mulating hormone tsh Nate Rubio Start: 05-30-2017 Assay of thyroxine total Nate Rubio Start: 05-30-2017 Thyroid stimulating hormone measurement Gemma Schworm Start: 05-30-2017 Thyroxine measurement W endi Schworm Start: 05-29-2017 Doc meds verified w/pt or re Nateleighton Rubio Start: 05-26-2016 Assay of thyroid sti mulating hormone tsh Nate Rubio Start: 05-26-2016 Assay of thyroxine total Nateleighton Rubio Start: 05-26-2016 Thyroid stimulating hormone measurement Gemam Schworm Start: 05-26-2016 Thyroxine measurement W endi Schworm Start: 03-19-2015 Assay of thyroid sti mulating hormone tsh Nate Rubio Start: 03-19-2015 Assay of thyroxine total Nate Rubio Start: 03-19-2015 Thyroid stimulating hormone measurement Gemma Schworm Start: 03-19-2015 Total thyroxine measurement Gemma Schworm Start: 03-12-2014 Assay of thyroid sti mulating hormone tsh Nate Alexandereder Start: 03-12-2014 Assay of thyroxine total Nate Rubio Start: 03-12-2014 Thyroid stimulating hormone measurement Gemma Schworm Start: 03-12-2014 Total thyroxine measurement Gemma Schworm Plan of Treatment Date Care Activity Detail Author Start: 05-27-2024 Assay of thyroid stimulating hormone tsh TSH [facility] Start: 05-27-2024 Assay of thyroxine total T4 Munoz onkea [facility] Start: 08-27-2023 Assay of thyroid stimulating hormone tsh TSH Santee onkea [facility] Start: 08-27-2023 Assay of thyroxine total T4 Santee onkea [facility] Start: 05-29-2023 Assay of thyroid stimulating hormone tsh TSH Santee on[facility]a [facility] Start: 05-29-2023 Assay of thyroxine total T4 Santee onkea [facility] Start: 2022 Assay of thyroid stimulating hormone tsh TSH Santee [facility] Start: 2022 Assay of thyroxine total T4 Santee on[facility]a [facility] Start: 05-31-2022 Assay of thyroxine total T4 Santee onkea [facility] Start: 05-31-2022 Thyroid stimulating hormone measurement ASSAY THYROID STIM HORMONE Santee onkea [facility] Start: 06-02-2020 Iiv4 vacc split virus 0.5 ml dos for im use Flu vaccine-non medicare Santee onkea [facility] Start: 06-02-2020 Im adm prq id subq/im njxs 1 vaccine Administration of single vaccine Santee onkea [facility] Start: 06-01-2020 T4 [Mass/Vol] T4 Santee onkea [facility] Start: 06-01-2020 TSH Qn TSH Santee [facility] Start: 05-29-2019 T4 [Mass/Vol] T4 Munoz onkea [facility] Start: 05-29-2019 TSH Qn TSH Santee onkea [facility] Immunizations Immunization Date Immunization Notes Care Provider Fa cility 05-29-2022 influenza virus vacc ine, unspecified formulation; Translations: [Influenza virus vaccine, quadrivalent (ccIIV4), derived from cell cultures, subunit, preservative and antibiotic free, 0.5 mL dosage, for intramuscular use] [facility] [facility] 05-29-2022 influenza, injectabl e, quadrivalent, contains preservative [employer] 05-29-2022 IMMUNIZATION ADMIN; Translations: [IMMUNIZATION ADMIN] [facility] 06-02-2020 influenza, injectabl e, quadrivalent, contains preservative; Translations: [FLU VACC 4 MALORIE 3 YRS PLUS IM] [employer] 06-02-2020 IMMUNIZATION ADMIN; Translations: [IMMUNIZATION ADMIN] [employer] 06-01-2019 influenza, injectabl e, quadrivalent, contains preservative; Translations: [FLU VACC 4 MALORIE 3 YRS PLUS IM] [facility] 06-01-2019 influenza, seasonal, injectable [facility] 06-01-2019 IMMUNIZATION ADMIN; Translations: [IMMUNIZATION ADMIN] [facility] 05-29-2018 influenza, seasonal, injectable; Translations: [FLU VACCINE 3 YRS & > IM] [facility] 05-29-2018 IMMUNIZATION ADMIN; Translations: [IMMUNIZATION ADMIN] [facility] 05-25-2016 influenza, seasonal, injectable [facility] 06-04-2000 tetanus and diphther ia toxoids, adsorbed, preservative free, for adult use (2 Lf of tetanus toxoid and 2 Lf of diphtheria toxoid) [facility] Payers Date Payer Category Payer Unknown [id number] 2.16.84 [id number] 1986 Unknown [id number] 2.16.84 [id number] 1986 Unknown [id number] 2.16.84 [id number] 1986 Unknown [id number] 2.16.84 [id number] 1986 Unknown [id number] 2.16.84 [id number] 1986 Unknown [id number] 2.16.84 [id number] 1986 Unknown [id number] 2.16.84 [id number] 1986 Unknown [id number] 2.16.84 [id number] 1986 Unknown [id number] 2.16.84 [id number] 1986 Unknown [id number] 2.16.84 [id number] 1959 Unknown [id number] 1959 Unknown [id number] Unknown [id number] Social History Date Type Detail Facility Start: Never smoker [facility] Start: Alcohol [facility] Start: Caffeine [facility] Sex Assigned At Sex Assigned At [facility] Other Evaluation note 01-13-2022 Note Date & Type Note Facility 01-13-2022 Evaluation note Encounter Date Diagnosis Assessment Notes December, Cutaneous abscess of abdominal wall (ICD-10 - L02.211) Advised her to go to the ER due to significant pain, extension of erythema, and skin induration of abscess. [employer] Other Evaluation note 10-03-2021 Note Date & [...] the ER for worsening symptoms or concerns. [employer] Other History general Narrative - Reported Note Date & Type Note Facility History general Narrative - Reported Type Medical History Hypothyroid Medical History Scleroderma Medical History seasonal allergies Surgical History 2006 Surgical History Myringotomy 1996 Surgical History Broken Left ankle 2002 Hospitalization History See past surgical hx [employer] Other Summary Purpose Family History No Family History Records FoundNo Family History Records FoundNo Family History Records Found Advance Directives No Advanced Directives Records FoundNo Advanced Directives Records FoundNo Advanced Directives Records Found Additional Source Comments INFORMATION SOURCE (unrecogn ized section and content) DATE CREATED AUTHOR 12/06/2021 [facility] DATE CREATED AUTHOR AUTHOR'S ORGANIZ ATION 01/02/2023 [facility] DATE CREATED AUTHOR AUTHOR'S ORGANIZ ATION 01/23/2024 [facility] EPIC REASON FOR VISIT (unrecogniz ed [...] BE BASED ON THE PRIMARY CLINICAL RECORDS. [facility]. provides no warranty or guarantee of the accuracy or completeness of information in this document.
[2024-01-25 10:32] LABS: Basophils Percent Auto 0.1 % (0.2-2.0); Eosinophils Percent Auto 0.1 % (0.9-7.0); Hematocrit 40.5 % (36.0-48.0); Hemoglobin 13.5 g/dL (12.0-16.0); Immature Granulocytes Abs Auto 0.21 10^3/uL (0.00-0.03); Immature Granulocytes Pct Auto 1.2 % (0.0-0.5); Lymphocytes Absolute Auto 2.8 10^3/uL (1.2-3.8); Lymphocytes Percent Auto 15.8 % (20.5-60.0); Mean Corpuscular HGB Conc 33.3 g/dL (29.9-35.2); Mean Corpuscular Hemoglobin 29.5 pg (26.7-34.0); Mean Corpuscular Volume 88.6 fL (81.0-99.0); Monocytes Absolute Auto 1.3 10^3/uL (0.3-0.8); Monocytes Percent Auto 7.2 % (1.7-12.0); Neutrophils Absolute Auto 13.4 10^3/uL (1.4-6.5); Neutrophils Percent Auto 75.6 % (43.0-75.0); Platelet Count 274 10^3/uL (150-450); Red Blood Count 4.57 10^6/uL (4.20-5.40); Red Cell Distribution Width 13.6 % (11.0-15.0); White Blood Count 17.7 10^3/uL (4.0-11.0)
[2024-01-25 10:48] LABS: Estimated Average Glucose 108 mg/dL; Glycohemoglobin A1C 5.4 % (4.5-6.2)
[2024-01-25 11:08] LABS: Alanine Aminotransferase 24 U/L (14-59); Albumin Globulin Ratio 0.9; Albumin Level 3.4 g/dL (3.4-5.0); Alkaline Phosphatase 94 U/L (46-116); Aspartate Amino Transferase 11 U/L (15-37); BUN Creatinine Ratio 20.5; Bilirubin Direct 0.2 mg/dL (0.0-0.2); Calcium 8.3 mg/dL (8.5-10.1); Carbon Dioxide 28.6 mmol/L (21.0-32.0); Chloride 102 mmol/L (98-107); Chol HDL Ratio 2.9; Cholesterol 171 mg/dL (<=200); Estimated GFR (African America >60 (>=60); Estimated GFR (Non-African Ame >60 (>=60); Globulin 3.9 g/dL; Glucose 86 mg/dL (74-106); HDL Cholesterol 59 mg/dL (40-60); LDL Cholesterol Calculated 100.8 mg/dL; Potassium 3.6 mmol/L (3.5-5.1); Sodium 137 mmol/L (136-145); Thyroid Stimulating Hormone 0.737 uIU/mL (0.358-3.740); Total Protein 7.3 g/dL (6.4-8.2); Triglycerides 56 mg/dL (<=150); VLDL CHOLESTEROL 11.2 mg/dL
== END 2024-01-25 10:18 | disposition home or self-care (01) ==
LOC: LAB 10:17
PROVIDERS: PCP Family Medicine; Visit Provider Family Medicine
DX: Z00.00 Encounter for general adult medical examination without abnormal findings (principal)
CPT/HCPCS: 36415; 80048; 80061; 80076; 83036; 84443; 85025

== ENCOUNTER 2024-05-26 08:41 | Outpatient (OUT) | payer OTHER, SELFPAY ==
--- OUTSIDE RECORDS SUMMARY | 2024-05-26 08:57 | XMS_ITS | CCD ---
Author Organization [facility] Care Team Providers Care Energy Professional Name Role Phone Nate Rubio Primary Care [...] Care Unavailable Gemma Michael Primary Care Physician Unavailjose miguel MARIA, EDNA Attending Unavailable MARYLU, NIKKI Attending Unavailable NADERER, EDNA Attending Unavailable NADERER, EDNA Attending Unavailable NADERER, EDNA Attending Unavailable Allergies Allergy Classification Reported Allergen(s) Allergy Type Date of Onset Reaction(s) Facility (4 sources) Amoxicillin; Translations: [amoxicillin] Drug Allergy hives [facility] (4 sources) Other Allergy to substance (disorder) Methazolamide-h daksha [facility] (2 sources) methIMAzole Drug Allergy rash Vivian Nutrinia Other (1 source) methIMAzole Drug Allergy 6 [facility] Repository Medications Current Medications Medication Drug Class(es) [...] Sundays with water on an empty stomach. Mylan Start: 08-31-2021 End: 05-28-2022 levothyroxine 137 [...] times per day as needed lactobacillus acidophilus [id number] unt oral capsule (4 sources) End: 06-01-2019 [...] Tobacco smoking status Non-Smoker Invalid Interpretation Code [facility] MG MAMM SCREEN 3D LINDA CADon 12-25-2022 MG MAMM SCREEN 3D LINDA CAD Patient: JEET STEVENSON Exam Date: 12/25/2022 : 1985 Gender:F Ordering : DR NIKKI VALERO . Admission #: [id number] Family : Order #: [id number] CLICK HERE TO VIEW EXAM RADIOLOGY REPORT [...] lung cancer at age 66. LOCATION: [facility] BREAST COMPOSITION: Scattered areas fibroglandular density. [...] Hernandez M.D. on 12/25/2022 at 13:34 Normal [facility] PAP ACOG PANEL 2: 30 to 65on 12-02-2022 . . Normal [facility] Comment on above: Result Comment: Perf ormed at: WB Performed By: #### [id number] #### [facility] [address] [place] [address] Dr. Vinnie Gallardo Age Gdln ACOG Testing 30-65 Normal [facility] Comment on above: Performed By: #### [id number] #### [facility] [address] [place] [address] Dr. Vinnie Gallardo DIAGNOSIS: Comment Normal [facility] Comment on above: Result Comment: NEGA TIVE FOR INTRAEPITHELIAL LESION OR MALIGNANCY. Performed at: WB Performed By: #### [id number] #### [facility] [address] [place] [address] Dr. Vinnie Gallardo HPV Aptima Negative Normal Negative [facility] Comment on above: Result Comment: This nucleic acid amplification test detects fourteen high-risk HPV types (16,18,31,33,35,39,45,51,52,56,58,59,66,68) without differentiation. Performed at: =G Performed By: #### [id number] #### [facility] [address] [place] [address] Dr. Vinnie Gallardo HPV Genotype Reflex Comment Normal [facility] Comment on above: Result Comment: Crit eria not met, HPV Genotype not performed. Performed at: WB Performed By: #### [id number] #### [facility] [address] [place] [address] Dr. Vinnie Gallardo Methodology: Comment [facility] Comment on above: Result Comment: This liquid based ThinPrep(R) pap test was screened with the use of an image guided system. Performed at: WB Performed By: #### [id number] #### [facility] [address] [place] [address] Dr. Vinnie Gallardo Note: Comment Normal [facility] Comment on above: Result Comment: The Pap smear is a screening test designed to aid in the detection of premalignant and malignant conditions of the uterine cervix. It is not a diagnostic procedure and should not be used as the sole means of detecting cervical cancer. Both false-positive and false-negative reports do occur. . Performed at: WB Performed By: #### [id number] #### [facility] [address] [place] [address] Dr. Vinnie Gallardo Performed by: Comment Normal [facility] Comment on above: Result Comment: Laura Maldonado, Morning Show Producer (ASCP) Performed at: WB Performed By: #### [id number] #### [facility] [address] [place] [address] Dr. Vinnie Gallardo Specimen adequacy: Comment Normal [facility] Comment on above: Result Comment: Sati sfactory for evaluation. No endocervical component is identified. Performed at: WB Performed By: #### [id number] #### [facility] [address] [place] [address] Dr. Vinnie Gallardo Laboratory - Chemistry and C hemistry - challengeon 09-07-2022 TSH Qn 3.013 m[IU]/L Invalid Interpretation Code [employer] [facility] [employer] No Panel Informationon 09-07 ks Invalid Interpretation Code [facility] T4on 09-07-2022 T4 [Mass/Vol] 9.30 ug/dL Invalid Interpretation Code [facility] Comment on above: Performed By: #### T 4, TSH #### [facility] [address] [place] [address] Dr. Vinnie Gallardo TSHon 09-07-2022 TSH 3.013 uIU/mL Normal 0.358-3.740 [facility] Comment on above: Performed By: #### L IPID, LIVER, BMP #### [facility] [address] [place] [address] Dr. Vinnie Gallardo T4 LABCORPon 05-19-2022 T4 [Mass/Vol] 7.5 ug/dL Normal 4.5-12.0 [facility] Comment on above: Performed By: #### T 4LC #### [facility] [address] [place] [address] Dr. Vinnie Gallardo CBC AUTO DIFFon 05-18-2022 BASO # 0.0 103/ul Normal 0.0-0.1 [facility] Comment on above: Performed By: #### L IPID, LIVER, BMP #### [facility] [address] [place] [address] Dr. Vinnie Gallardo Basophils/100 WBC (Bld) 0.4 % Normal 0.2-2.0 [facility] Comment on above: Performed By: #### L IPID, LIVER, BMP #### [facility] [address] [place] [address] Dr. Vinnie Gallardo EO # 0.2 103/ul Normal 0.0-0.7 [facility] Comment on above: Performed By: #### L IPID, LIVER, BMP #### [facility] [address] [place] [address] Dr. Vinnie Gallardo Eosinophils/100 WBC (Bld) 2.4 % Normal 0.9-7.0 [facility] Comment on above: Performed By: #### L IPID, LIVER, BMP #### [facility] [address] [place] [address] Dr. Vinnie Gallardo Erythrocyte distribution width (RBC) [Ratio] 13.2 % Normal 11.0-15.0 [facility] Comment on above: Performed By: #### L IPID, LIVER, BMP #### [facility] [address] [place] [address] Dr. Vinnie Gallardo Hematocrit (Bld) [Volume fraction] 38.9 % Normal 36.0-48.0 [facility] Comment on above: Performed By: #### L IPID, LIVER, BMP #### [facility] [address] [place] [address] Dr. Vinnie Gallardo Hemoglobin (Bld) [Mass/Vol] 13.1 g/dL Normal 12.0-16.0 [facility] Comment on above: Performed By: #### L IPID, LIVER, BMP #### [facility] [address] [place] [address] Dr. Vinnie Gallardo IG # 0.05 10e3/ul Critically high 0.00-0.03 [facility] Comment on above: Performed By: #### L IPID, LIVER, BMP #### [facility] [address] [place] [address] Dr. Vinnie Gallardo IG % 0.5 % Normal 0.0-0.5 [facility] Comment on above: Performed By: #### L IPID, LIVER, BMP #### [facility] [address] [address] [address] Vinnie Gallardo LYMPH # 2.5 103/ul Normal 1.2-3.8 [facility] Comment on above: Performed By: #### L IPID, LIVER, BMP #### [facility] [address] [place] [address] Dr. Vinnie Gallardo Lymphocytes/100 WBC (Bld) 26.6 % Normal 20.5-60.0 [facility] Comment on above: Performed By: #### L IPID, LIVER, BMP #### [facility] [address] [place] [address] Dr. Vinnie Gallardo MANUAL DIFF REQ NO Normal [facility] Comment on above: Performed By: #### L IPID, LIVER, BMP #### [facility] [address] [place] [address] Dr. Vinnie Gallardo MCH (RBC) [Entitic mass] 29.7 pg Normal 26.7-34.0 [facility] Comment on above: Performed By: #### L IPID, LIVER, BMP #### [facility] [address] [place] [address] Dr. Vinnie Gallardo MCHC (RBC) [Mass/Vol] 33.7 g/dL Normal 29.9-35.2 [facility] Comment on above: Performed By: #### L IPID, LIVER, BMP #### [facility] [address] [place] [address] Dr. Vinnie Gallardo MCV (RBC) [Entitic vol] 88.2 fL Normal 81.0-99.0 [facility] Comment on above: Performed By: #### L IPID, LIVER, BMP #### [facility] [address] [place] [address] Dr. Vinnie Gallardo MONO # 0.6 103/ul Normal 0.3-0.8 [facility] Comment on above: Performed By: #### L IPID, LIVER, BMP #### [facility] [address] [place] [address] Dr. Vinnie Gallardo Monocytes/100 WBC (Bld) 6.5 % Normal 1.7-12.0 [facility] Comment on above: Performed By: #### L IPID, LIVER, BMP #### [facility] [address] [address] [address] Vinnie Gallardo NEUT # 6.0 103/ul Normal 1.4-6.5 [facility] Comment on above: Performed By: #### L IPID, LIVER, BMP #### [facility] [address] [place] [address] Dr. Vinnie Gallardo Neutrophils/100 WBC (Bld) 63.6 % Normal 43.0-75.0 [facility] Comment on above: Performed By: #### L IPID, LIVER, BMP #### [facility] [address] [place] [address] Dr. Vinnie Gallardo Platelet mean volume (Bld) [Entitic vol] 10.5 fL Normal 9.5-13.5 [facility] Comment on above: Performed By: #### L IPID, LIVER, BMP #### [facility] [address] [place] [address] Dr. Vinnie Gallardo PLT 276 103/ul Normal 150-450 [facility] Comment on above: Performed By: #### L IPID, LIVER, BMP #### [facility] [address] [place] [address] Dr. Vinnie Gallardo RBC 4.41 106/ul Normal 4.20-5.40 [facility] Comment on above: Performed By: #### L IPID, LIVER, BMP #### [facility] [address] [place] [address] Dr. Vinnie Gallardo WBC 9.4 103/ul Normal 4.0-11.0 [facility] Comment on above: Performed By: #### L IPID, LIVER, BMP #### [facility] [address] [place] [address] Dr. Vinnie Gallardo GLYCOHEMOGLOBIN A1Con 2021 ADA RECOMMENDATION SEE BELOW Normal [facility] Comment on above: Result Comment: ADA RECOMMENDED LIMIT 4.0 - 6.0 ADA THERAPEUTIC TARGET < 7.0 ACTION SUGGESTED > 7.0 Performed By: #### A 1C #### [facility] [address] [address] [address] Vinnie Gallardo Glucose [Mass/Vol] 94 mg/dL Normal [facility] Comment on above: Performed By: #### A 1C #### [facility] [address] [address] [address] Vinnie Gallardo HbA1c (Bld) [Mass fraction] 4.9 % Normal 4.5-6.2 [facility] Comment on above: Performed By: #### A 1C #### [facility] [address] [address] [address] Vinnie Gallardo LIPID PROFILEon 05-18-2022 CHOL-HDL RATIO NORM SEE BELOW Normal [facility] Comment on above: Result Comment: 3.3 - 4.4 LOW RISK 4.4 - 7.1 AVERAGE RISK 7.1 - 11.0 MODERATE RISK >11.0 HIGH RISK Performed By: #### L IPID, LIVER, BMP #### [facility] [address] [address] [address] Vinnie Gallardo Cholesterol [Mass/Vol] 143 mg/dL Normal <=200 [facility] Comment on above: Performed By: #### L IPID, LIVER, BMP #### [facility] [address] [address] [address] Vinnie Gallardo Cholesterol in HDL [Mass/Vol] 42 mg/dL Normal 40-60 [facility] Comment on above: Performed By: #### L IPID, LIVER, BMP #### [facility] [address] [address] [address] Vinnie Gallardo Cholesterol in LDL [Mass/Vol] 74.6 mg/dL Normal [facility] Comment on above: Performed By: #### L IPID, LIVER, BMP #### [facility] [address] [place] [address] Dr. Vinnie Gallardo Cholesterol.total/Ch olesterol in HDL [Mass ratio] 3.4 {ratio} Normal [facility] Comment on above: Performed By: #### L IPID, LIVER, BMP #### [facility] [address] [address] [address] Vinnie Gallardo HDL NORMAL > or = 60 mg/dl - LOW CARDIOVASCULAR RISK <40 mg/dl - HIGH CARDIOVASCULAR RISK Normal [facility] Comment on above: Performed By: #### L IPID, LIVER, BMP #### [facility] [address] [address] [address] Vinnie Gallardo LDL CALC NORMAL SEE BELOW Normal [facility] Comment on above: Result Comment: <100 mg/dl OPTIMAL 100 - 129 mg/dl NEAR OR ABOVE OPTIMAL 130 - 159 mg/dl BORDERLINE HIGH 160 - 189 mg/dl HIGH >190 mg/dl VERY HIGH Performed By: #### L IPID, LIVER, BMP #### [facility] [address] [address] [address] Vinnie Gallardo Triglyceride [Mass/Vol] 132 mg/dL Normal <=150 [facility] Comment on above: Performed By: #### L IPID, LIVER, BMP #### [facility] [address] [address] [address] Vinnie Gallardo VLDL CALC 26.4 mg/dL Normal [facility] Comment on above: Performed By: #### L IPID, LIVER, BMP #### [facility] [address] [address] [address] Vinnie Gallardo LIVER PROFILEon 05-18-2022 Albumin [Mass/Vol] 3.6 g/dL Normal 3.4-5.0 [facility] Comment on above: Performed By: #### L IPID, LIVER, BMP #### [facility] [address] [place] [address] Dr. Vinnie Gallardo Albumin/Globulin [Mass ratio] 0.9 {ratio} Normal [facility] Comment on above: Performed By: #### L IPID, LIVER, BMP #### [facility] [address] [place] [address] Dr. Vinnie Gallardo ALP [Catalytic activity/Vol] 84 U/L Normal 46-116 [facility] Comment on above: Performed By: #### L IPID, LIVER, BMP #### [facility] [address] [address] [address] Vinnie Gallardo ALT [Catalytic activity/Vol] 33 U/L Normal 14-59 [facility] Comment on above: Performed By: #### L IPID, LIVER, BMP #### [facility] [address] [address] [address] Vinnie Gallardo AST [Catalytic activity/Vol] 22 U/L Normal 15-37 [facility] Comment on above: Performed By: #### L IPID, LIVER, BMP #### [facility] [address] [address] [address] Vinnie Gallardo BILI, CONJUGATED 0.2 mg/dL Normal 0.0-0.2 [facility] Comment on above: Performed By: #### L IPID, LIVER, BMP #### [facility] [address] [address] [address] Vinnie Gallardo Bilirubin [Mass/Vol] 1.1 mg/dL Critically high 0.2-1.0 [facility] Comment on above: Performed By: #### L IPID, LIVER, BMP #### [facility] [address] [address] [address] Vinnie Gallardo Globulin (S) [Mass/Vol] 3.9 g/dL Normal [facility] Comment on above: Performed By: #### L IPID, LIVER, BMP #### [facility] [address] [address] [address] Vinnie Gallardo Protein [Mass/Vol] 7.5 g/dL Normal 6.4-8.2 [facility] Comment on above: Performed By: #### L IPID, LIVER, BMP #### [facility] [address] [address] [address] Vinnie Gallardo Laboratory - Chemistry and C hemistry - challengeon 05-18-2022 TSH Qn 4.724 H Invalid Interpretation Code [facility] No Panel Informationon 05-18 RM Invalid Interpretation Code [facility] PROF CHEM 8 (BAS METB)on Anion gap [Moles/Vol] 10.7 mmol/L Normal [facility] Comment on above: Performed By: #### L IPID, LIVER, BMP #### [facility] [address] [address] [address] Vinnie Gallardo Calcium [Mass/Vol] 8.5 mg/dL Normal 8.5-10.1 [facility] Comment on above: Performed By: #### L IPID, LIVER, BMP #### [facility] [address] [address] [address] Vinnie Gallardo Chloride [Moles/Vol] 104 mmol/L Normal 98-107 [facility] Comment on above: Performed By: #### L IPID, LIVER, BMP #### [facility] [address] [place] [address] Dr. Vinnie Gallardo CO2 [Moles/Vol] 26.9 mmol/L Normal 21.0-32.0 [facility] Comment on above: Performed By: #### L IPID, LIVER, BMP #### [facility] [address] [place] [address] Dr. Vinnie Gallardo Creatinine [Mass/Vol] 0.84 mg/dL Normal 0.55-1.02 [facility] Comment on above: Performed By: #### L IPID, LIVER, BMP #### [facility] [address] [address] [address] Vinnie Gallardo EGFR-AF [place] >60 Normal >=60 [facility] Comment on above: Performed By: #### L IPID, LIVER, BMP #### [facility] [address] [place] [address] Dr. Vinnie Gallardo EGFR-NON AF [place] >60 Normal >=60 [facility] Comment on above: Performed By: #### L IPID, LIVER, BMP #### [facility] [address] [address] [address] Vinnie Gallardo Glucose [Mass/Vol] 100 mg/dL Normal 74-106 [facility] Comment on above: Performed By: #### L IPID, LIVER, BMP #### [facility] [address] [place] [address] Dr. Vinnie Gallardo Potassium [Moles/Vol] 3.6 mmol/L Normal 3.5-5.1 [facility] Comment on above: Performed By: #### L IPID, LIVER, BMP #### [facility] [address] [place] [address] Dr. Vinnie Gallardo Sodium [Moles/Vol] 138 mmol/L Normal 136-145 [facility] Comment on above: Performed By: #### L IPID, LIVER, BMP #### [facility] [address] [place] [address] Dr. Vinnie Gallardo Urea nitrogen [Mass/Vol] 7.0 mg/dL Normal 7.0-18.0 [facility] Comment on above: Performed By: #### L IPID, LIVER, BMP #### [facility] [address] [place] [address] Dr. Vinnie Gallardo Urea nitrogen/Creatinine [Mass ratio] 8.3 mg/mg Normal [facility] Comment on above: Performed By: #### L IPID, LIVER, BMP #### [facility] [address] [place] [address] Dr. Vinnie Gallardo TSHon 05-18-2022 TSH 4.724 uIU/mL Critically high 0.358-3.740 [facility] Comment on above: Performed By: #### L IPID, LIVER, BMP #### [facility] [address] [place] [address] Dr. Vinnie Gallardo VITAMIN D 25 OHon 05-18-2022 VIT D 25-OH 12.4 ng/mL Normal [facility] Comment on above: Performed By: #### V ITAD #### [facility] [address] [place] [address] Dr. Vinnie Gallardo VIT D RANGES SEE BELOW Normal [facility] Comment on above: Result Comment: <20 ng/mL Vit D deficient 20 - <30 ng/mL Vit D insufficient 30 - 100 ng/mL Vit D sufficient >100 ng/mL Potential Toxicity Performed By: #### V ITAD #### [facility] [address] [place] [address] Dr. Vinnie Gallardo CBC AUTO DIFFon 01-13-2022 BASO # 0.0 103/ul Normal 0.0-0.1 [facility] Comment on above: Performed By: #### C BC #### [facility] [address] [address] [address] Vinnie Gallardo Basophils/100 WBC (Bld) 0.2 % Normal 0.2-2.0 [facility] Comment on above: Performed By: #### C BC #### [facility] [address] [address] [address] Vinnie Gallardo EO # 0.2 103/ul Normal 0.0-0.7 [facility] Comment on above: Performed By: #### C BC #### [facility] [address] [address] [address] Vinnie Gallardo Eosinophils/100 WBC (Bld) 1.5 % Normal 0.9-7.0 [facility] Comment on above: Performed By: #### C BC #### [facility] [address] [address] [address] Vinnie Gallardo Erythrocyte distribution width (RBC) [Ratio] 13.0 % Normal 11.0-15.0 [facility] Comment on above: Performed By: #### C BC #### [facility] [address] [address] [address] Vinnie Gallardo Hematocrit (Bld) [Volume fraction] 38.6 % Normal 36.0-48.0 [facility] Comment on above: Performed By: #### C BC #### [facility] [address] [address] [address] Vinnie Gallardo Hemoglobin (Bld) [Mass/Vol] 12.9 g/dL Normal 12.0-16.0 [facility] Comment on above: Performed By: #### C BC #### [facility] [address] [address] [address] Vinnie Gallardo IG # 0.05 10e3/ul Critically high 0.00-0.03 [facility] Comment on above: Performed By: #### C BC #### [facility] [address] [place] [address] Dr. Vinnie Gallardo IG % 0.4 % Normal 0.0-0.5 [facility] Comment on above: Performed By: #### C BC #### [facility] [address] [place] [address] Dr. Vinnie Gallardo LYMPH # 2.4 103/ul Normal 1.2-3.8 [facility] Comment on above: Performed By: #### C BC #### [facility] [address] [place] [address] Dr. Vinnie Gallardo Lymphocytes/100 WBC (Bld) 19.5 % Critically low 20.5-60.0 [facility] Comment on above: Performed By: #### C BC #### [facility] [address] [place] [address] Dr. Vinnie Gallardo MANUAL DIFF REQ NO Normal [facility] Comment on above: Performed By: #### C BC #### [facility] [address] [place] [address] Dr. Vinnie Gallardo MCH (RBC) [Entitic mass] 29.7 pg Normal 26.7-34.0 [facility] Comment on above: Performed By: #### C BC #### [facility] [address] [place] [address] Dr. Vinnie Gallardo MCHC (RBC) [Mass/Vol] 33.4 g/dL Normal 29.9-35.2 [facility] Comment on above: Performed By: #### C BC #### [facility] [address] [place] [address] Dr. Vinnie Gallardo MCV (RBC) [Entitic vol] 88.7 fL Normal 81.0-99.0 [facility] Comment on above: Performed By: #### C BC #### [facility] [address] [place] [address] Dr. Vinnie Gallardo MONO # 1.0 103/ul Critically high 0.3-0.8 [facility] Comment on above: Performed By: #### C BC #### [facility] [address] [place] [address] Dr. Vinnie Gallardo Monocytes/100 WBC (Bld) 8.2 % Normal 1.7-12.0 [facility] Comment on above: Performed By: #### C BC #### [facility] [address] [place] [address] Dr. Vinnie Gallardo NEUT # 8.7 103/ul Critically high 1.4-6.5 [facility] Comment on above: Performed By: #### C BC #### [facility] [address] [place] [address] Dr. Vinnie Gallardo Neutrophils/100 WBC (Bld) 70.2 % Normal 43.0-75.0 [facility] Comment on above: Performed By: #### C BC #### [facility] [address] [place] [address] Dr. Vinnie Gallardo Platelet mean volume (Bld) [Entitic vol] 10.1 fL Normal 9.5-13.5 [facility] Comment on above: Performed By: #### C BC #### [facility] [address] [place] [address] Dr. Vinnie Gallardo PLT 264 103/ul Normal 150-450 [facility] Comment on above: Performed By: #### C BC #### [facility] [address] [place] [address] Dr. Vinnie Gallardo RBC 4.35 106/ul Normal 4.20-5.40 [facility] Comment on above: Performed By: #### C BC #### [facility] [address] [place] [address] Dr. Vinnie Gallardo WBC 12.4 103/ul Critically high 4.0-11.0 [facility] Comment on above: Performed By: #### C BC #### [facility] [address] [place] [address] Dr. Vinnie Gallardo PROF CHEM 8 (BAS METB)on Anion gap [Moles/Vol] 12.0 mmol/L Normal [facility] Comment on above: Performed By: #### L IPID, LIVER, BMP #### [facility] [address] [place] [address] Dr. Vinnie Gallardo Calcium [Mass/Vol] 8.3 mg/dL Critically low 8.5-10.1 Th e [facility] Comment on above: Performed By: #### L IPID, LIVER, BMP #### [facility] [address] [address] [address] Vinnie Gallardo Chloride [Moles/Vol] 105 mmol/L Normal 98-107 [facility] Comment on above: Performed By: #### L IPID, LIVER, BMP #### [facility] [address] [address] [address] Vinnie Gallardo CO2 [Moles/Vol] 26.6 mmol/L Normal 21.0-32.0 [facility] Comment on above: Performed By: #### L IPID, LIVER, BMP #### [facility] [address] [address] [address] Vinnie Gallardo Creatinine [Mass/Vol] 0.80 mg/dL Normal 0.55-1.02 [facility] Comment on above: Performed By: #### L IPID, LIVER, BMP #### [facility] [address] [place] [address] Dr. Vinnie Gallardo EGFR-AF [place]OU[place]OREAN >60 Normal >=60 [facility] Comment on above: Performed By: #### L IPID, LIVER, BMP #### [facility] [address] [place] [address] Dr. Vinnie Gallardo EGFR-NON AF [place]OREAN >60 Normal >=60 [facility] Comment on above: Performed By: #### L IPID, LIVER, BMP #### [facility] [address] [address] [address] Vinnie Gallardo Glucose [Mass/Vol] 98 mg/dL Normal 74-106 [facility] Comment on above: Performed By: #### L IPID, LIVER, BMP #### [facility] [address] [address] [address] Vinnie Gallardo Potassium [Moles/Vol] 3.6 mmol/L Normal 3.5-5.1 [facility] Comment on above: Performed By: #### L IPID, LIVER, BMP #### [facility] [address] [place], [place] [address] Dr. Vinnie Gallardo Sodium [Moles/Vol] 140 mmol/L Normal 136-145 [facility] Comment on above: Performed By: #### L IPID, LIVER, BMP #### [facility] [address] [address] [address] Vinnie Gallardo Urea nitrogen [Mass/Vol] 13.0 mg/dL Normal 7.0-18.0 [facility] Comment on above: Performed By: #### L IPID, LIVER, BMP #### [facility] [address] [place], [place] [address] Dr. Vinnie Gallardo Urea nitrogen/Creatinine [Mass ratio] 16.2 mg/mg Normal [facility] Comment on above: Performed By: #### L IPID, LIVER, BMP #### [facility] [address] [address] [address] Vinnie Gallardo Laboratory - Chemistry and C hemistry - challengeon 10-12-2021 Free T4 [Mass/Vol] 0.92 ng/dL Invalid Interpretation Code [facility] TSH Qn 3.23 m[IU]/L Invalid Interpretation Code [facility] No Panel Informationon 10-12 ls Invalid Interpretation Code [facility] Aerobic Cultureon 10-03-2021 Aerobic Culture Reason for [...] RESISTANT TO ALL B-LACTAM DRUGS. PERFORMED BY: [place] [address] PATHOLOGIST LOSS PREVENTION GUARD LIAN GRAVES M.D. [facility] Comment on above: Performed By: #### A ERC #### [address] Laboratory - Chemistry and C hemistry - challengeon 05-24-2021 T4 [Mass/Vol] 8.8 ug/dL Invalid Interpretation Code [facility] TSH Qn 6.04 H Invalid Interpretation Code [facility] No Panel Informationon 05-24 ls Invalid Interpretation Code [facility] Otheron 05-26-2020 ls Invalid Interpretation Code [facility] Thyroidon 05-26-2020 T4 [Mass/Vol] 7.6 ug/dL Invalid Interpretation Code [facility] TSH Qn 3.07 m[IU]/L Invalid Interpretation Code [facility] Otheron 05-25-2019 ls Invalid Interpretation Code [facility] Thyroidon 05-25-2019 T4 [Mass/Vol] 8.2 ug/dL Invalid Interpretation Code [facility] TSH Qn 3.12 m[IU]/L Invalid Interpretation Code [facility]acon 04-06-2019 Cholesterol [Mass/Vol] 175.0 mg/dL Invalid Interpretation Code [facility] Cholesterol in HDL [Mass/Vol] 39.0 mg/dL Invalid Interpretation Code [employer] Cholesterol in LDL [Mass/Vol] 108.0 mg/dL Invalid Interpretation Code [employer] Triglyceride [Mass/Vol] 138.0 mg/dL Invalid Interpretation Code [facility] Hematologyon 04-06-2019 Basophils/100 WBC (Bld) 0.50 % Invalid Interpretation Code [employer] Eosinophils/100 WBC (Bld) 1.80 % Invalid Interpretation Code [employer] Hematocrit (Bld) [Volume fraction] 39.80 % Invalid Interpretation Code [facility] Hemoglobin (Bld) [Mass/Vol] 13.40 g/dL Invalid Interpretation Code [employer] Lymphocytes/100 WBC (Bld) 28.40 % Invalid Interpretation Code [facility] MCH (RBC) [Entitic mass] 29.30 pg Invalid Interpretation Code [facility] MCV (RBC) [Entitic vol] 87.10 fL Invalid Interpretation Code [facility] Monocytes/100 WBC (Bld) 8.20 % Invalid Interpretation Code [facility] Neutrophils/100 WBC (Bld) 64.50 % Invalid Interpretation Code [facility] Platelets (Bld) [#/Vol] 273.0 10*3/uL Invalid Interpretation Code [facility] RBC (Bld) [#/Vol] 4.570 10*6/uL Invalid Interpretation Code [facility] WBC (Bld) [#/Vol] 8.40 10*3/uL Invalid Interpretation Code [facility] Metabolic Panelon 04-06-2019 Albumin [Mass/Vol] 3.70 g/dL Invalid Interpretation Code [facility] ALT [Catalytic activity/Vol] 46.0 U/L Invalid Interpretation Code [facility] Anion gap [Moles/Vol] 11.8 mmol/L Invalid Interpretation Code [facility] AST [Catalytic activity/Vol] 36.0 U/L Invalid Interpretation Code [facility] Calcium [Mass/Vol] 9.0 mg/dL Invalid Interpretation Code [facility] Chloride [Moles/Vol] 104.0 mmol/L Invalid Interpretation Code [facility] CO2 [Moles/Vol] 27.10 mmol/L Invalid Interpretation Code [facility] Creatinine [Mass/Vol] 0.820 mg/dL Invalid Interpretation Code [facility] GFR/1.73 sq M predicted among non-blacks MDRD (S/P/Bld) [Vol rate/Area] mL/min/{1.73_m2} Invalid Interpretation Code [facility] Glucose [Mass/Vol] 92.0 mg/dL Invalid Interpretation Code [facility] HbA1c (Bld) [Mass fraction] 5.30 % Invalid Interpretation Code [facility] Potassium [Moles/Vol] 3.90 mmol/L Invalid Interpretation Code [facility] Sodium [Moles/Vol] 139.0 mmol/L Invalid Interpretation Code [facility] Urea nitrogen [Mass/Vol] 7.0 mg/dL Invalid Interpretation Code [facility] Otheron 04-06-2019 Calcidiol [Mass/Vol] 5.5 L Invalid Interpretation Code [facility] Erythrocyte distribution width (RBC) [Ratio] 13.40 % Invalid Interpretation Code [facility] MCHC (RBC) [Mass/Vol] 33.70 g/dL Invalid Interpretation Code [facility] ls Invalid Interpretation Code [facility] Thyroidon 04-06-2019 TSH Qn 4.767 H Invalid Interpretation Code [facility] Otheron 05-21-2018 jls Invalid Interpretation Code [facility] Thyroidon 05-21-2018 T4 [Mass/Vol] 7.7 ug/dL Invalid Interpretation Code [facility] TSH Qn 5.39 H Invalid Interpretation Code [facility] Otheron 05-21-2017 ls Invalid Interpretation Code [facility] Thyroidon 05-21-2017 T4 [Mass/Vol] 8.5 ug/dL Invalid Interpretation Code [facility] TSH Qn 3.58 m[IU]/L Invalid Interpretation Code [facility] Otheron 05-21-2016 ls Invalid Interpretation Code [facility] Thyroidon 05-21-2016 Free T4 [Mass/Vol] 0.77 ng/dL Invalid Interpretation Code [facility] TSH Qn 5.90 H Invalid Interpretation Code [facility] Otheron 05-18-2015 RM Invalid Interpretation Code [facility] Thyroidon 05-18-2015 T4 [Mass/Vol] 7.40 ug/dL Invalid Interpretation Code [facility] TSH Qn 2.880 m[IU]/L Invalid Interpretation Code [facility] Vital Signs Date Time Vital Sign Value Performing Clinician Facility 05-27-2023 10:120400 Body height 163.83 cm [facility] 05-27-2023 10:12-0400 Body mass index (BMI) [Ratio] 49.18 kg/m2 [facility] 05-27-2023 10:12-0400 Body surface area Derived from formula 2.45 m2 [facility] 05-27-2023 10:12-0400 Body weight 132 kg [facility] 05-27-2023 10:12-0400 Diastolic blood pressure 84 mm[Hg] [facility] 05-27-2023 10:12-0400 Heart rate 84 /min [facility] 05-27-2023 10:12-0400 Systolic blood pressure 142 mm[Hg] [facility] 05-29-2022 12:17-0400 Body height 163.83 cm [facility] 05-29-2022 12:17-0400 Body mass index (BMI) [Ratio] 47.91 kg/m2 [facility] 05-29-2022 12:17-0400 Body surface area Derived from formula 2.42 m2 [facility] 05-29-2022 12:17-0400 Body weight 128.6 kg [facility] 05-29-2022 12:17-0400 Diastolic blood pressure 78 mm[Hg] [facility] 05-29-2022 12:17-0400 Heart rate 78 /min [facility] 05-29-2022 12:17-0400 Systolic blood pressure 118 mm[Hg] [facility] 01-13-2022 15:10-0400 Body height 162.56 cm Jake Ny Other [employer] Other 01-13-2022 15:10-0400 Body mass index (BMI) [Ratio] 49.77 kg/m2 Jake Ny Other [employer] Other 01-13-2022 15:10-0400 Body temperature 99.3 [degF] Jake Ny Other [employer] Other 01-13-2022 15:10-0400 Body weight 131.54 kg Jake Ny Other [employer] Other 01-13-2022 15:10-0400 Diastolic blood pressure 79 mm[Hg] Jake Ny Other [employer] Other 01-13-2022 15:10-0400 SaO2% (BldA) [Mass fraction] 96 % Jake Ny Other [employer] Other 01-13-2022 15:10-0400 Systolic blood pressure 112 mm[Hg] Jake Ny Other [employer] Other 10-03-2021 19:50-0500 Body height 162.56 cm Lor Glover Other [employer] Other 10-03-2021 19:50-0500 Body mass index (BMI) [Ratio] 49.77 kg/m2 Lor Belen Other [employer] Other 10-03-2021 19:50-0500 Body temperature 97.8 [degF] Lor Belen Other [employer] Other 10-03-2021 19:50-0500 Body weight 131.54 kg Lor Belen Other [employer] Other 10-03-2021 19:50-0500 Diastolic blood pressure 92 mm[Hg] Lor Belen Other [employer] Other 10-03-2021 19:50-0500 Respiratory rate 18 /min Lor Belen Other [employer] Other 10-03-2021 19:50-0500 SaO2% (BldA) [Mass fraction] 100 % Lor Belen Other [employer] Other 10-03-2021 19:50-0500 Systolic blood pressure 131 mm[Hg] Lor Belen Other [employer] Other 05-31-2021 12:37-0400 Body height 163.83 cm [facility] 05-31-2021 12:37-0400 Body mass index (BMI) [Ratio] 49.52 kg/m2 [facility] 05-31-2021 12:37-0400 Body surface area Derived from formula 2.46 m2 [facility] 05-31-2021 12:37-0400 Body weight 132.9 kg [facility] 05-31-2021 12:37-0400 Diastolic blood pressure 78 mm[Hg] [facility] 05-31-2021 12:37-0400 Heart rate 72 /min [facility] 05-31-2021 12:37-0400 Systolic blood pressure 124 mm[Hg] [facility] 06-02-2020 10:50-0400 BMI (Body Mass Index) 47.81 kg/m2 [employer] 06-02-2020 10:50-0400 Body weight 130.32 kg Nate [employer] 06-02-2020 10:50-0400 BP Diastolic 70 mm[Hg] [facility] 06-02-2020 10:50-0400 BP Systolic 130 mm[Hg] [facility] 06-02-2020 10:50-0400 BSA (Body Surface Area) 2.44 m2 [facility] [employer] 06-02-2020 10:50-0400 Height 165.1 cm Nate Rubio [facility] 06-02-2020 10:50-0400 Pulse (Heart Rate) 72 /min Nate Espana [facility] 06-01-2019 16:10-0400 BMI (Body Mass Index) 49.51 kg/m2 Nate [facility] 06-01-2019 16:10-0400 Body weight 134.95 kg Nate [employer] 06-01-2019 16:10-0400 BP Diastolic 78 mm[Hg] Nate [facility] 06-01-2019 16:10-0400 BP Systolic 122 mm[Hg] Nate [employer] 06-01-2019 16:10-0400 BSA (Body Surface Area) 2.49 m2 Nate [employer] 06-01-2019 16:10-0400 Height 165.1 cm Nate [employer] 06-01-2019 16:10-0400 Pulse (Heart Rate) 84 /min Nate Munoz [employer] 05-29-2018 15:10-0400 BMI (Body Mass Index) 49.59 kg/m2 Nate [employer] 05-29-2018 15:10-0400 Body weight 135.17 kg Nate [employer] 05-29-2018 15:10-0400 BP Diastolic 74 mm[Hg] Nate [employer] 05-29-2018 15:10-0400 BP Systolic 126 mm[Hg] Nate [facility] 05-29-2018 15:100400 BSA (Body Surface Area) 2.49 m2 Nate [employer] 05-29-2018 15:100400 Height 165.1 cm Nate [employer] 05-29-2018 15:10-0400 Pulse (Heart Rate) 72 /min Nate [employer] 05-29-2017 13:34-0400 BMI (Body Mass Index) 52.05 kg/m2 Nate [employer] 05-29-2017 13:34-0400 Body weight 139.71 kg Nate [employer] 05-29-2017 13:34-0400 BP Diastolic 84 mm[Hg] Nate [employer] 05-29-2017 13:34-0400 BP Systolic 128 mm[Hg] Nate [employer] 05-29-2017 13:34-0400 BSA (Body Surface Area) 2.52 m2 Nate [employer] 05-29-2017 13:34-0400 Height 163.83 cm Nate [employer] 05-29-2017 13:34-0400 Pulse (Heart Rate) 76 /min Nate [employer] 05-30-2016 13:34-0400 BMI (Body Mass Index) 50.22 kg/m2 Nate [employer] 05-30-2016 13:34-0400 Body weight 135.85 kg Nate [employer] 05-30-2016 13:34-0400 BP Diastolic 78 mm[Hg] Nate [facility] 05-30-2016 13:34-0400 BP Systolic 122 mm[Hg] Nate [employer] 05-30-2016 13:34-0400 BSA (Body Surface Area) 2.49 m2 Nate [employer] 05-30-2016 13:34-0400 Height 164.47 cm Nate [employer] 05-30-2016 13:34-0400 Pulse (Heart Rate) 76 /min Nate Alexandereder [employer] 05-26-2015 14:18-0400 BMI (Body Mass Index) 49.69 kg/m2 Nate [employer] 05-26-2015 14:18-0400 Body weight 131.32 kg Nate [employer] 05-26-2015 14:18-0400 BP Diastolic 82 mm[Hg] Nate [employer] 05-26-2015 14:18-0400 BP Systolic 112 mm[Hg] Nate [employer] 05-26-2015 14:18-0400 BSA (Body Surface Area) 2.44 m2 Nate [employer] 05-26-2015 14:18-0400 Height 162.56 cm Nate [employer] 05-26-2015 14:18-0400 Pulse (Heart Rate) 64 /min Nate Quibb 03-19-2014 10:26-0400 BMI (Body Mass Index) 44.03 kg/m2 Nate [employer] 03-19-2014 10:260400 Body weight 116.35 kg Nate [employer] 03-19-2014 10:26-0400 BP Diastolic 60 mm[Hg] Nate [employer] 03-19-2014 10:26-0400 BP Systolic 112 mm[Hg] Nate [employer] 03-19-2014 10:26-0400 BSA (Body Surface Area) 2.29 m2 Nate [employer] 03-19-2014 10:260400 Height 162.56 cm Nate [employer] 03-19-2014 10:26-0400 Pulse (Heart Rate) 70 /min Nate [employer] [facility] 01-14-2013 08:57-0400 BMI (Body Mass Index) 44.62 kg/m2 Nate [employer] 01-14-2013 08:57-0400 Body weight 119.75 kg Nate [employer] 01-14-2013 08:57-0400 BP Diastolic 76 mm[Hg] Nate [employer] 01-14-2013 08:57-0400 BP Systolic 116 mm[Hg] Nate [employer] 01-14-2013 08:57-0400 BSA (Body Surface Area) 2.33 m2 Nate [employer] 01-14-2013 08:57-0400 Height 163.83 cm [facility] 01-14-2013 08:570400 Pulse (Heart Rate) 68 /min Nate Espana [facility] Encounters Encounter Date Encounter Type Care Provider Facility Start: 04-13-2024 End: 04-13-2024 ambulatory EDNA MARIA Not Available Start: 01-22-2024 End: 01-22-2024 ambulatory EDNA MARIA Not Available Start: 01-15-2024 End: 01-15-2024 ambulatory EDNA MARIA Not Available Start: 12-10-2023 End: 12-10-2023 ambulatory NIKKI VALERO Not Available Start: 11-05-2023 End: 11-05-2023 ambulatory EDNA MARIA Not Available Start: 05-27-2023 Office outpatient vi sit 25 minutes Gemma S Schwchristiano Other [facility] Start: 12-25-2022 End: 12-26-[address] NIKKI VALERO . Facility:[facility] Start: 11-26-2022 End: 11-26-[address] NIKKI VALERO . Facility:[facility] Start: 09-07-2022 End: 09-08-[address] DOCTOR PLATA Facility:[facility] Start: 05-29-2022 Office outpatient vi sit 25 minutes Gemma S Schworm Other [facility] Start: 05-21-2022 Encounter for genera l adult medical examination without abnormal findings DR EDNA MARIA [facility] Start: 05-18-2022 End: 05-19-[address] DOCTOR PLATA Facility:[facility] Start: 05-18-2022 End: 05-19-2022 Encounter for general adult medical examination without abnormal findings DR EDNA MARIA Facility:[facility] Start: 01-13-2022 End: 01-13-2022 ambulatory KEZIA SALAMANCA [employer] Other Start: 01-13-2022 Patient encounter procedure Jake Ny [facility] Start: 10-03-2021 End: 10-03-2021 ambulatory Lor Glover Other [employer] Other Start: 10-03-2021 Office outpatient vi sit 15 minutes Lor Glover [facility] Start: 05-31-2021 Office outpatient vi sit 25 minutes Gemma S Schworm Other [facility] Office Start: 06-02-2020 Office outpatient vi sit 25 minutes Gemma S Schworm Other [facility] Office Start: 06-01-2019 Office outpatient vi sit 25 minutes Gemma S Schworm Other [facility] Office Start: 05-29-2018 Office outpatient vi sit 25 minutes Gemma S Schworm Other [facility] Office Start: 05-29-2017 Office outpatient vi sit 25 minutes Gemma S Schworm Other [facility] Office Start: 05-30-2016 Office outpatient vi sit 25 minutes Gemma S Schworm Other [facility] Office Start: 05-26-2015 Office outpatient vi sit 25 minutes Gemma S Schworm Other [facility] Office Start: 03-19-2014 Office Services Nate Solis [employer] [facility] Other [facility] Office Start: 01-14-2013 Office Services Nate L [employer] vicky Other [facility] Office Procedures Date Procedure Procedure Detail [...] of thyroid sti mulating hormone tsh Nateleighton AlexanderRubio Start: 05-29-2019 Assay of thyroxine total Nate [...] sti mulating hormone tsh Nateleighton Rubio Start: 05-26-2016 Assay of thyroxine total [...] of thyroid sti mulating hormone tsh Nateleighton AlexanderRubio Start: 03-12-2014 Assay of thyroxine total Nate Rubio Start: 03-12-2014 Thyroid stimulating hormone measurement Gemma Schworm Start: 03-12-2014 Total thyroxine measurement Gemma Schworm Plan of Treatment Date Care Activity Detail Author Start: 05-27-2024 Assay of thyroid stimulating hormone tsh TSH [facility] Start: 05-27-2024 Assay of thyroxine total T4 [employer] [facility] Start: 08-27-2023 Assay of thyroid stimulating hormone tsh TSH [employer] [facility] Start: 08-27-2023 Assay of thyroxine total T4 [employer] [facility] Start: 05-29-2023 Assay of thyroid stimulating hormone tsh TSH [employer] [facility] Start: 05-29-2023 Assay of thyroxine total T4 [employer] [facility] Start: 2022 Assay of thyroid stimulating hormone tsh TSH [employer] [facility] Start: 2022 Assay of thyroxine total T4 [employer] [facility] Start: 05-31-2022 Assay of thyroxine total T4 [employer] [facility] Start: 05-31-2022 Thyroid stimulating hormone measurement ASSAY THYROID STIM HORMONE [employer] [facility] Start: 06-02-2020 Iiv4 vacc split virus 0.5 ml dos for im use Flu vaccine-non medicare [employer] [facility] Start: 06-02-2020 Im adm prq id subq/im njxs 1 vaccine Administration of single vaccine [employer] Start: 06-01-2020 T4 [Mass/Vol] T4 [employer] [facility] Start: 06-01-2020 TSH Qn TSH [facility] Start: 05-29-2019 T4 [Mass/Vol] T4 [facility] Start: 05-29-2019 TSH Qn TSH [facility] Immunizations Immunization Date Immunization Notes Care Provider Fa cility 05-29-2022 influenza virus vacc ine, unspecified formulation; Translations: [Influenza virus vaccine, quadrivalent (ccIIV4), derived from cell cultures, subunit, preservative and antibiotic free, 0.5 mL dosage, for intramuscular use] [facility] 05-29-2022 influenza, injectabl e, quadrivalent, contains preservative [facility] 05-29-2022 IMMUNIZATION ADMIN; Translations: [IMMUNIZATION ADMIN] [facility] 06-02-2020 influenza, injectabl e, quadrivalent, contains preservative; Translations: [FLU VACC 4 LUCRETIA 3 YRS PLUS IM] [facility] 06-02-2020 IMMUNIZATION ADMIN; Translations: [IMMUNIZATION ADMIN] [facility] 06-01-2019 influenza, injectabl e, quadrivalent, contains preservative; Translations: [FLU VACC 4 LUCRETIA 3 YRS PLUS IM] [facility] 06-01-2019 influenza, seasonal, injectable [facility] 06-01-2019 IMMUNIZATION ADMIN; Translations: [IMMUNIZATION ADMIN] [facility] 05-29-2018 influenza, seasonal, injectable; Translations: [FLU VACCINE 3 YRS & > IM] [facility] 05-29-2018 IMMUNIZATION ADMIN; Translations: [IMMUNIZATION ADMIN] [facility] 05-25-2016 influenza, seasonal, injectable [facility] 06-04-2000 tetanus and diphther ia toxoids, adsorbed, preservative free, for adult use (2 Lf of tetanus toxoid and 2 Lf of diphtheria toxoid) Nate Rubio [facility] Payers Date Payer Category Payer Unknown [id number] 2.16.84 [id number] 1986 Unknown [id number] 2.16.84 [id number] 1986 Unknown [id number] 2.16.84 [id number] 1986 Unknown [id number] 2.16.84 [id number] 1986 Unknown [id number] 2.16.84 [id number] 1986 Unknown [id number] 2.16.84 [id number] 1986 Unknown [id number] 2.16.84 [id number] 1986 Unknown [id number] 2.16.84 [id number] 1986 Unknown [id number] 2.16.84 [id number] 1986 Unknown [id number] 2.16.84 [id number] 1986 Unknown [id number] 2.16.84 [id number] 1959 Unknown [id number] 2.16. [id number] 1959 Unknown [id number] Unknown [id number] Social History Date Type Detail Facility Start: Never smoker [facility] Start: Alcohol [facility] Start: Keaton Munoz [place] [facility] Sex Assigned At Sex Assigned At Bir th [employer] Other Evaluation note 01-13-2022 Note Date & Type Note Facility 01-13-2022 Evaluation note Encounter Date Diagnosis Assessment Notes December, Cutaneous abscess of abdominal wall (ICD-10 - L02.211) Advised her to go to the ER due to significant pain, extension of erythema, and skin induration of abscess. [employer] Other Evaluation note 10-03-2021 Note Date & [...] the ER for worsening symptoms or concerns. [employer] Other History general Narrative - Reported Note Date & Type Note Facility History general Narrative - Reported Type Medical History Hypothyroid Medical History Scleroderma Medical History seasonal allergies Surgical History 2006 Surgical History Myringotomy 1996 Surgical History Broken Left ankle 2002 Hospitalization History See past surgical hx [employer] Other Summary Purpose Family History No Family History Records FoundNo Family History Records FoundNo Family History Records Found Advance Directives No Advanced Directives Records FoundNo Advanced Directives Records FoundNo Advanced Directives Records Found Additional Source Comments INFORMATION SOURCE (unrecogn ized section and content) DATE CREATED AUTHOR 12/06/2021 [facility] DATE CREATED AUTHOR AUTHOR'S ORGANIZ ATION [facility]/02[facility]2023 [facility] DATE CREATED AUTHOR AUTHOR'S ORGANIZ ATION 04/13/2024 [facility] EPIC REASON FOR VISIT (unrecogniz ed [...] BE BASED ON THE PRIMARY CLINICAL RECORDS. [facility]. provides no warranty or guarantee of the accuracy or completeness of information in this document.
== END 2024-05-26 08:42 | disposition home or self-care (01) ==
LOC: LAB 08:41
PROVIDERS: PCP Family Medicine
DX: E89.0 Postprocedural hypothyroidism (principal)
CPT/HCPCS: 36415; 84436; 84443

== ENCOUNTER 2024-12-14 13:01 | Outpatient (REF) | payer OTHER, SELFPAY ==
[2024-12-16 15:08] LABS: Age Gdln ACOG Testing Note (.); HPV Aptima Negative (Negative); IGP, Aptima HPV, rfx 16/18,45 Note (.)
== END 2024-12-14 13:02 | disposition home or self-care (01) ==
LOC: LAB 13:01
PROVIDERS: PCP Family Medicine; Visit Provider Obstetrics & Gynecology
DX: Z01.419 Encounter for gynecological examination (general) (routine) without abnormal findings (principal)
CPT/HCPCS: 87624; 88175

== ENCOUNTER 2025-01-14 09:18 | Outpatient (OUT) | payer OTHER, SELFPAY ==
--- OUTSIDE RECORDS SUMMARY | 2024-12-14 08:56 | XMS_ITS ---
Author Name Auto Generated Organization OHIP Support Name Relationship Address Phone GRAHAM SANJUANA Next of Kin [address] [place] [address], [place] [address] + JOANNE FREEMAN Next of Kin [address] [place] [address] + SANJUANA STEVENSON Next of Kin [address] [place] [address] [place] [address] + JOANNE FREEMAN Next of Kin [address] [place] [address] + SANJUANA STEVENSON Next of Kin [address] [place] [address] [place] [address] + VLADIMIR FREEMAN Next of Kin [address] [facility] [place] [address] + JOANNE FREEMAN Next of Kin [address] [facility] [place] [address] + SANJUANA STEVENSON Next of Kin [address] [place] [address], [place] [address] + VLADIMIR FREEMAN Next of Kin [address] [place] [address] + JOANNE FREEMAN Next of Kin [address] [place] [address] + SANJUANA STEVENSON Next of Kin [address] [place] [address], [place] [address] + VLADIMIR FREEMAN Next of Kin [address] [place] [address] + JOANNE FREEMAN Next of Kin [address] [place] [address] + Care Team Providers Care Import Dispatcher Name Role Phone EDNA MARIA Attending Unavailable NIKKI VALERO Attending Unavailable EDNA MARIA Attending Unavailable EDNA MARIA Attending Unavailable EDNA MARIA Attending Unavailable PROBLEMS No Problem Records Found PROCEDURES No Procedure Records Found RESULTS No Result Records Found ALLERGIES No Allergies Records Found ENCOUNTERS ADMIT/DISCHARGE ACCOUNT NUMBER ADMITTING ENCOUNTER CLASS LOCATION SOURCE 12/14/2024/ 5 [id number] Ambulatory Building:[facility] 10/13/2024/ 5 [id number] Ambulatory Building:[facility] 09/01/2024/ 5 [id number] Ambulatory Building:[facility] 04/13/2024/ 4 [id number] Ambulatory Building:[facility] 01/22/2024/ 4 [id number] Ambulatory Building:[facility] PAYERS ENCOUNTER GUARANTOR PAYER SUBSCRIBER SOURCE 12/14/2024 JEET WONG: [place] [address] [place] [address]Dub: (HP) Primary Insurance:HEALTH SCOPEPolicy Number: [id number] e Date:2022-08-26 BIB WONG: [id number] [place] [address] [facility] 10/13/2024 JEET WONG: [place] [address]Qfd: (HP) Primary Insurance:HEALTH SCOPEPolicy Number: [id number] e Date:2022-08-26 BIB WONG: [id number] [place] [address] [facility] 09/01/2024 JEET WONG: [place] [address]Ywo: (HP) Primary Insurance:HEALTH SCOPEPolicy Number: [id number] e Date:2022-08-26 BIB WONG: [id number] [place] [address] [facility] 04/13/2024 JEET WONG: [place] [address]Dpo: (HP) Primary Insurance:HEALTH SCOPEPolicy Number: [id number] e Date:2022-08-26 BIB WONG: [id number] [place] [address] [facility] 01/22/2024 JEET [place]: [place] [address]Hil: (HP) Primary Insurance:HEALTH SCOPEPolicy Number: [id number] e Date:2022-08-26 BIB WONG: [id number] [place] [address] [facility] EP[facility]
--- OUTSIDE RECORDS SUMMARY | 2025-01-14 09:20 | XMS_ITS | Encounter Summary ---
Author Organization [facility] Address [address] [place] [address] Care Team Providers Care Agriscience Instructor Name Role Phone Iker Armstrong MD Primary Care Provider [phone] Encounter Details Date Type Department Care Team (Late st Contact Info) Description 12/30/2024 Orders Only [facility] [address] [place] [phone] Sarah Matthew LPN [address] [place] [address] Social History Tobacco Use Types Packs/Day Years Used Date Smoking Tobacco: Never Smokeless Tobacco: Never Social Connection and Isolat ion Panel [NHANES] Answer Date Recorded In a typical week, how many times do you talk on the phone with family, friends, or neighbors? More than three times a week 11/04/2023 How often do you get togethe r with friends or relatives? Once a week 11/04/2023 How often do you attend chur ch or roman catholic services? Never 11/04/2023 Do you belong to any clubs o r organizations such as anglican groups, unions, fraternal or athletic groups, or school groups? Patient declined 11/04/2023 How often do you attend meet ings of the clubs or organizations you belong to? Patient declined 11/04/2023 Are you , , di vorced, , never , or living with a partner? 11/04/2023 AUDIT-C Answer Date Recorded Q1: How often do you have a drink containing alc ohol? Patient declined 11/04/2023 Q2: How many drinks containi ng alcohol do you have on a typical day when you are drinking? Patient declined 11/04/2023 Q3: How often do you have si x or more drinks on one occasion? Patient declined 11/04/2023 Overall Financial Resource Strain (CARDIA) Answe r Date Recorded How hard is it for you to pa y for the very basics like food, housing, medical care, and heating? Patient declined 11/04/2023 PHQ-2 Answer Date Recorded Patient Health Questionnaire-2 Score 2 11/05/2023 [facility] - Occupational Stress Questionnaire Answer Date Recorded Do you feel stress - tense, restless, nervous, or anxious, or unable to sleep at night because your mind is troubled all the time - these days? Rather much 11/04/2023 Exercise Vital Sign Answer Date Recorde d On average, how many days pe r week do you engage in moderate to strenuous exercise (like a brisk walk)? Patient declined On average, how many minutes do you engage in exercise at this level? Patient declined 11/04/2023 Hunger Vital Sign Answer Date Recorded Within the past 12 months, y ou worried that your food would run out before you got the money to buy more. Patient declined Within the past 12 months, t he food you bought just didn't last and you didn't have money to get more. Patient declined 06/2024 PRAPARE - Transportation Answer Date Re corded In the past 12 months, has l ack of transportation kept you from medical appointments or from getting medications? Patient declined 11/04/2023 In the past 12 months, has l ack of transportation kept you from meetings, work, or from getting things needed for daily living? Patient declined 11/04/2023 Housing Stability Vital Sign Answer Kit e Recorded In the last 12 months, was t here a time when you were not able to pay the mortgage or rent on time? Patient declined 11/04/19 24 Number of Places Lived in the Last Year Not on f ile 11/04/2023 In the last 12 months, was t here a time when you did not have a steady place to sleep or slept in a group home (including now)? Patient declined 11/04/2023 Comments Unknown Sex and Gender Information Value Date Recorded Sex Assigned at Not on file Legal Sex Female 6:41 PM EDT Gender Identity Not on file Sexual Orientation Not on file documented as of this encounter Plan of Treatment Upcoming Encounters Date Type Department Care Team (Late st Contact Info) Description 01/21/2025 2:00 PM EDT Office Visit [facility] [address] [place] [address] Iker Armstrong MD [address] [place] [address] 12/20/2025 11:00 AM EDT Office Visit [facility] [address] [facility] [place] [place] [phone] Fredi Snow DO [address] [place] [address] documented as of this encounter Procedures Procedure Name Priority Date/Time Associated Diagnosis Comments PAP SMEAR Routine 12/14/2024 12:00 AM EDT documented in this encounter Results * Pap Smear (12/14/2024 12:00 AM EDT) Swab Cervical swab / Unknown us [facility] Nurse LAB CYTOLOGY ORDERABLES Final Result EXTERNAL LAB documented in this encounter Visit Diagnoses Not on filedocumented in this encounter Care Teams Agriscience Instructor Relationship Specialty Start Date End Date Iker Armstrong MD [address] [place] [phone] PCP - General Family Medicine 10/08/23 documented as of this encounter
--- OUTSIDE RECORDS SUMMARY | 2025-01-14 09:20 | XMS_ITS | Clinical Summary ---
Author Organization [facility] Address [address] [place] [address] Care Team Providers Care Balance Assembler Name Role Phone Iker Armstrong MD Primary Care Provider [phone] Allergies Active Allergy Reactions Criticality Noted Date Comments Amoxicillin Rash Low 10/08/2023 Rash only if over 30 days, okay for 10 days Methimazole Hives 10/08/2023 Metronidazole Hives 10/08/2023 Other Hives High 10/06/2017 Thyroid medication Medications levothyroxine (Synthroid, Levoxyl) 175 MCG tablet Take 1 tablet by mouth in the morning. Take before meals. 3 Active sertraline (Zoloft) 100 MG tablet Take 200 mg by mouth in the morning. Active fexofenadine (Camille Allergy) 180 MG tablet Take 180 mg by mouth Daily Active montelukast (Singulair) 10 MG tabletIndicatio ns:Idiopathic urticaria Take 1 tablet (10 mg) by mouth Daily 30 tablet 5 4 Active SUMAtriptan (Imitrex) 25 MG tabletIndicatio ns:Migraine without aura and without status migrainosus, not intractable (CMS/HCC) Take 1 tablet (25 mg) by mouth 1 (one) time if needed for migraine May repeat dose once in 2 hours if no relief. Do not exceed 2 doses in 24 hours. 4 Active mupirocin (Bactroban) 2 % ointmentIndicat ions:Folliculit is Apply topically 3 (three) times a day 4 Active traZODone (Desyrel) 50 MG tablet Take 1 tablet (50 mg) by mouth at bedtime 5 Active LORazepam (Ativan) 0.5 MG tabletIndicatio ns:Generalized anxiety disorder (CMS/HCC) Take 1 tablet (0.5 mg) by mouth 3 (three) times a day as needed for anxiety for up to 10 days 30 tablet 1 5 Active norethindrone (Micronor) 0.35 MG tabletIndicatio ns: control counseling Take 1 tablet (0.35 mg) by mouth Daily 28 tablet 12 5 Active clobetasol (Temovate) 0.05 % creamIndication s:Skin irritation Apply 1 application topically in the morning and 1 application before bedtime. Do all this for 7 days. Apply to affected area twice a day. 60 g 5 12/22/19 25 fluconazole (Diflucan) 150 MG tabletIndicatio ns:Yeast infection Take 1 tablet (150 mg) by mouth every 3rd (third) day for 2 doses 2 tablet 5 12/19/19 25 Active Problems Problem Noted Date Diagnosed Date Grief reaction 10/13/2024 Assessment & Plan (10/13/2024 10:25 AM EST): Difficult to adjust to mom's and refer for counseling. Class 3 severe obesity due t o excess calories without serious comorbidity with body mass index (BMI) of 50.0 to 59.9 in adult 04/13/2024 Assessment & Plan (09/01/2024 10:38 AM EST): Weight loss indicated Assessment & Plan (04/13/2024 9:29 AM EDT): Weight loss indicated Idiopathic urticaria 01/22/2024 Assessment & Plan (01/22/2024 11:41 AM EDT): Unclear etiology and repeat prednisone. Add singulair and pepcid. Continue camille and use benadryl PRN. If no improvement can refer to allergy. Annual physical exam 01/22/2024 Seasonal allergic rhinitis due to pollen 024 Assessment & Plan (10/13/2024 10:25 AM EST): Symptoms stable and continue medication. Assessment & Plan (04/13/2024 9:28 AM EDT): Worsening symptoms and add prednisone. Continue medication daily. Assessment & Plan (01/15/2024 9:53 AM EDT): Symptoms controlled with medication and continue. Bruxism, sleep-related 01/15/2024 Assessment & Plan (01/15/2024 9:54 AM EDT): Grinds teeth and try zanaflex at bedtime. Continue bite guard. Acne vulgaris 11/05/2023 Migraine without aura and wi thout status migrainosus, not intractable 11/05/2023 Assessment & Plan (10/13/2024 10:25 AM EST): MCWILLIAMS stable and use imitrex PRN. Assessment & Plan (04/13/2024 9:28 AM EDT): MCWILLIAMS stable and use imitrex PRN. Assessment & Plan (01/15/2024 9:53 AM EDT): MCWILLIAMS stable and use imitrex PRN. Factor V Leiden 11/05/2023 Generalized anxiety disorder 11/05/2023 Assessment & Plan (10/13/2024 10:24 AM EST): Symptoms previously controlled with zoloft and continue. Worsening anxiety and resume ativan PRN. Assessment & Plan (04/13/2024 9:27 AM EDT): Symptoms controlled with zoloft and continue. Assessment & Plan (01/15/2024 9:53 AM EDT): Symptoms controlled with zoloft and continue. Hidradenitis suppurativa 11/05/2023 Hyperthyroidism 11/05/2023 Primary insomnia 11/05/2023 Assessment & Plan (10/13/2024 10:25 AM EST): Sleeping well with trazodone and continue. Assessment & Plan (04/13/2024 9:28 AM EDT): Sleeping well with trazodone and continue. Assessment & Plan (01/15/2024 9:53 AM EDT): Sleeping well with trazodone and continue. Paranoia 11/05/2023 Vitamin D deficiency 11/05/2023 Resolved Problems Problem Noted Date Diagnosed Date Resolved Date Acute non-recurrent pansinusitis 09/01/2024 10/13/2024 Acute nonsuppurative otitis media, left 09/01/2024 10/13/2024 Acute suppurative otitis media of right ear 11/05/2023 01/15/2024 Assessment & Plan (11/05/2023 11:56 AM EDT): Developed OM with drainage and start drops. Complete levaquin. Use OTC PRN for symptoms. If no improvement will need to return to ENT. Encounters Date Type Department Care Team Description 12/30/2024 Orders Only [facility] [address] [place] [address] Sarah Matthew LPN 12/14/2024 9:00 AM EDT Office Visit [facility] [address] [place] [address] Fredi Snow, DO Garcia woman exam with routine gynecological exam; Encounter for screening mammogram for malignant neoplasm of breast; Family history of breast cancer; control counseling; Skin irritation; Yeast infection 12/14/2024 Clinisync Result Encounter [facility] External Department Unsolicited Fredi Snow, 12/14/2024 Bamboo flowsheet [facility] [address] [place] [phone] Fredi Snow DO 12/13/2024 Travel 11/02/2024 Telephone [facility] [address] [place] [address] Consuelo Frank LSW counseling appt from Last 3 Months Family History Medical History Relation Name Comments Hypertension Brother No Known Problems Father Lung cancer Maternal Grandfather Miscarriages / Stillbirths Maternal Grandmother Breast cancer Mother Depression Mother Lung cancer Mother Lung cancer Other Relation Name Status Comments Brother Father Maternal Grandfather Maternal Grandmother Mother Other Paternal Grandfather Social History Tobacco Use Types Packs/Day Years Used Date Smoking Tobacco: Never Smokeless Tobacco: Never Tobacco Cessation:Counseling Given: Not Answered Social Connection and Isolat ion Panel [NHANES] Answer Date Recorded In a typical week, how many times do you talk on the phone with family, friends, or neighbors? More than three times a week 11/04/2023 How often do you get togethe r with friends or relatives? Once a week 11/04/2023 How often do you attend chur or advent services? Never 11/04/2023 Do you belong to any clubs o r organizations such as buddhist groups, unions, fraternal or athletic groups, or [...] Recorded Patient Health Questionnaire-2 Score 2 11/05/2023 [facility] - Occupational Stress Questionnaire Answer Date Recorded [...] place to sleep or slept in a snf (including now)? Patient declined 11/04/2023 Comments Unknown Sex and Gender Information Value Date Recorded Sex Assigned at Not on file Legal Sex Female 6:41 PM EDT Gender Identity Not on file Sexual Orientation Not on file Last Filed Vital Signs Vital Sign Reading Time Taken Comments Blood Pressure 122/90 12/14/2024 9:16 AM EDT Pulse 104 10/13/2024 9:49 AM EST Temperature 36.2 C (97.1 F) 10/13/2024 9:49 AM EST Respiratory Rate 22 10/13/2024 9:49 AM EST Oxygen Saturation 96% 10/13/2024 9:49 AM EST Inhaled Oxygen Concentration - - Weight 130 kg (285 lb 8 oz) 12/14/2024 9:16 AM E DT Height 162.6 cm (5' 4 ) 10/13/2024 9:49 AM EST Body Mass Index 49.01 10/13/2024 9:49 AM EST Plan of Treatment Upcoming Encounters Date Type Department Care Team (Late st Contact Info) Description 01/21/2025 2:00 PM EDT Office Visit [facility] [address] [place] [address] Iker Armstrong MD [address] [place] [address] 12/20/2025 11:00 AM EDT Office Visit [facility] [address] [place] [phone] Fredi Snow, DO [address] [place] [address] Health Maintenance Due Date Last Done Comments HPV/Cotest 12/09/2024 Influenza Vaccine (Season Ended) 2025 07/01/2021, 06/01/2017, 07/02/2015 Cervical Cancer Screening 12/15/2027 Pap Smear 12/15/2027 12/14/2024, 11/24, 11/26/2022 Procedures Procedure Name Priority Date/Time Associated Diagnosis Comments IGP,APTIMA HPV,AGE GDLN Routine 12/14/2024 8:58 AM EDT PAP SMEAR Routine 12/14/2024 12:00 AM EDT from Last 3 Months Results * IGP,APTIMA HPV,AGE GDLN (12/14/2024 8:58 AM EDT) AGE GDLN ACOG TESTING Note . TB Comment: TESTS RESULT FLAG UNITS REF RANGE LAB Clinician Provided Cytology Information Source.............Cervix;Endocervix No. of containers..01 ThinPrep Vial Age Sully FORD Katy... 31 FLAG LEGEND: L-Low Normal,H-High Normal,LL-Alert Low,HH-Alert High <-Panic Low,>-Panic High,A-Abnormal,AA-Critical Abnormal Performed at: 01 =[facility] [address] Chasity Yancey MD, IGP, APTIMA HPV, RFX 16/18,45 Note . [facility] Comment: TESTS RESULT FLAG UNITS REF RANGE LAB DIAGNOSIS: 02 NEGATIVE FOR INTRAEPITHELIAL LESION OR MALIGNANCY. CELLULAR CHANGES ASSOCIATED WITH INFLAMMATION ARE PRESENT. Specimen adequacy: 02 Satisfactory for evaluation. No endocervical component is identified. Performed by: 02 Tati Abbott, [employer] (ASCP) . 02 Note: Note 02 The Pap smear is a screening test designed to aid in the detection of premalignant and malignant conditions of the uterine cervix. It is not a diagnostic procedure and should not be used as the sole means of detecting cervical cancer. Both false-positive and false-negative reports do occur. Test Methodology: Note 02 This liquid based ThinPrep(R) pap test was screened with the use of an image guided system. HPV Genotype Reflex Note 02 Criteria not met, HPV Genotype not performed. FLAG LEGEND: L-Low Normal,H-High Normal,LL-Alert Low,HH-Alert High <-Panic Low,>-Panic High,A-Abnormal,AA-Critical Abnormal Performed at: [address] [address] Chasity Yancey MD, HPV APTIMA Negative Negative [facility] Comment: This nucleic acid amplification test detects fourteen high- risk HPV types (16,18,31,33,35,39,45,51,52,56,58,59,66,68) without differentiation. Performed at: =[address] [id number] Director Of Business Continuity: Chasity Yancey MD, Phone: [phone] Performed at: [address] [id number] Director Of Business Continuity: Chasity Yancey MD, Phone: [phone] 12/14/2024 8:5 8 AM EDT 12/14/2024 1:35 PM EDT Narrative [facility] - 12/16/2024 3:08 PM EDT BRUSH-SPATULA CERVIX ENDOCERVIX us Generic External Data Provider LAB BLOOD ORDERAB LES Final Result Performing Organization Address [facility] Co de Phone Number [facility] * Pap Smear (12/14/2024 12:00 AM EDT) Swab Cervical swab / Unknown [facility] LAB CYTOLOGY ORDERABLES Final Result Performing Organization Address [facility]/ZIP Co de Phone Number EXTERNAL LAB from Last 3 Months Insurance [employer] Care Teams Balance Assembler Relationship Specialty Start Date End Date Iker Armstrong MD [address] [place] [address] PCP - General Family Medicine 10/08/23
--- OUTSIDE RECORDS SUMMARY | 2025-01-14 09:20 | XMS_ITS | Encounter Summary ---
Author Organization [facility] Address [address] [place] [address] Care Team Providers Care Shoddy Mill Worker Name Role Phone Iker Armstrong MD Primary Care Provider [phone] Encounter Details Date Type Department Care Team (Late st Contact Info) Description 01/07/2024 Clinisync Result Encounter [facility] External Department Unsolicited Fredi Snow, DO [address] [facility] [place] [address] Social History Tobacco Use Types Packs/Day Years [...] often do you attend chur ch or temple services? Never 11/04/2023 Do you belong to any clubs o r organizations such as mandaen groups, unions, fraternal or athletic groups, or [...] Recorded Patient Health Questionnaire-2 Score 2 11/05/2023 [facility] - Occupational Stress [...] place to sleep or slept in a chcf (including now)? Patient declined 11/04/2023 Comments Unknown [...] Office Visit [facility] [address] [place] [address] Iker Armstrong MD [address] [place] [address] 12/20/2025 11:00 AM EDT Office Visit [facility] [address] [facility] [place] [phone] Fredi Snow DO [address] [facility] [address] [place], [place] [phone] documented as of this encounter Procedures Procedure Name Priority Date/Time Associated Diagnosis Comments MM TOMOSYNTHESIS SCREENING BI 01/07/2024 1:08 PM EDT documented in this encounter Results * MM TOMOSYNTHESIS SCREENING BI (01/07/2024 1:08 PM EDT) Anatomical Region Laterality Modality Other 01/07/2024 1:08 PM EDT Narrative 01/07/2024 1:09 PM EDT The [address] [address] Mammography Report Signed Patient: JENY STEVENSON MR#: [id number] : 1985 Acct:[id number] Age/Sex: 38 / F ADM Date: 01/07/24 Loc: MAMMO Attending Dr: Fredi Snow D.O. Ordering Physician: Fredi Snow D.O. Results: Date of Service: 01/07/24 Follow Up: Procedure(s): MM tomosynthesis screening BI Accession Number(s): [id number] cc: Fredi Snow D.O.; Iker Armstrong M.D. Patient Name: JENY STEVENSON MR#: [id number] : 1985 Exam Date: 01/07/2024 Ordering Doctor: DR Fredi Snow . RADIOLOGY REPORT PROCEDURE: MM TOMOSYNTHESIS SCREENING BI COMPARISON: MG MAMM SCREEN 3D LINDA CAD, 12/25/2022. MG MAMM SCREEN 3D LINDA CAD, 12/13/2021. MG MAMM SCREEN LINDA W CAD, 09/13/2020. MG MAMM LINDA SCRN W CAD DIG, 01/27/2013. INDICATIONS: Screening Calculator Name NCI Breast Cancer Risk Assessment Tool 5 Year Breast Cancer Risk 0.80% Lifetime Breast Cancer Risk 20.20% Personal Breast Cancer No Personal Ovarian Cancer No Treatments None Family Cancers Mother with breast cancer at age 30; Grandfather-maternal with lung cancer at age 65; Grandfather-paternal with lung cancer at age 65. LOCATION: The [facility] BREAST COMPOSITION: There are scattered areas of fibroglandular density. FINDINGS: DIAGNOSTIC CATEGORY 1--NEGATIVE. RIGHT BREAST: No significant suspicious finding. No significant change has occurred. LEFT BREAST: No significant suspicious finding. No significant change has occurred. RECOMMENDATIONS: ROUTINE MAMMOGRAM AND CLINICAL EVALUATION IN 12 MONTHS. PLEASE NOTE: A NORMAL MAMMOGRAM DOES NOT EXCLUDE THE POSSIBILITY OF BREAST CANCER. A CLINICALLY SUSPICIOUS PALPABLE LUMP SHOULD BE BIOPSIED. Dictated by: Lance Hernandez M.D. on 01/07/2024 at 13:06 Approved by: Lance Hernandez M.D. on 01/07/2024 at 13:08 Dictated By: Lance Hernandez M.D. Signed By: 01/07/24 1309 DD/ 1308 TD/TT: Tourist Camp Attendant: Procedure Note Radiology, Radiologist, MD - 01/07/2024 [place] [address] Mammography Report Signed Patient: JENY STEVENSON KMR#: [id number] : 1985Acct:[id number] Age/Sex: 38 / FADM Date: 01/07/24 Loc: MAMMO Attending Dr: Fredi Snow D.O. Ordering Physician: Fredi Snow D.O.Results: Date of Service: 01/07/24Follow Up: Procedure(s): MM tomosynthesis screening BI Accession Number(s): [id number] cc: Fredi Snow D.O.; Iker Armstrong M.D. Patient Name: JENY STEVENSON MR#: [id number] : 1985 Exam Date: 01/07/2024 Ordering Doctor: DR Fredi Snow . RADIOLOGY REPORT PROCEDURE: MM TOMOSYNTHESIS SCREENING BI COMPARISON: MG MAMM SCREEN 3D LINDA CAD, 12/25/2022. MG MAMM SCREEN 3DBIL CAD, 12/13/2021. MG MAMM SCREEN LINDA W CAD, 09/13/2020. MG MAMM LINDA SCRN WCAD DIG, 01/27/2013. INDICATIONS: Screening Calculator Name NCI Breast Cancer Risk Assessment Tool 5 Year Breast Cancer Risk 0.80% Lifetime Breast Cancer Risk 20.20% Personal Breast Cancer No Personal Ovarian Cancer No Treatments None Family Cancers Mother with breast cancer at age 30;Grandfather-maternal with lung cancer at age 65; Grandfather-paternal with lung cancer at age 65. LOCATION: The [facility] BREAST COMPOSITION: There are scattered areas of fibroglandulardensity. FINDINGS: DIAGNOSTIC CATEGORY 1--NEGATIVE. RIGHT BREAST: No significant suspicious finding. No significant changehas occurred. LEFT BREAST: No significant suspicious finding. No significant changehas occurred. RECOMMENDATIONS: ROUTINE MAMMOGRAM AND CLINICAL EVALUATION IN 12 MONTHS. PLEASE NOTE: A NORMAL MAMMOGRAM DOES NOT EXCLUDE THE POSSIBILITY OFBREAST CANCER. A CLINICALLY SUSPICIOUS PALPABLE LUMP SHOULD BE BIOPSIED. Dictated by: Lance Hernandez M.D. on 01/07/2024 at 13:06 Approved by: Lance Hernandez M.D. on 01/07/2024 at 13:08 Dictated By: Lance Hernandez M.D. Signed By:01/07/24 1309 DD/ 1308 TD/TT: Tourist Camp Attendant: us Fredi Snow DO [facility] Final Result documented in this encounter Visit Diagnoses Not on filedocumented in this encounter Care Teams Shoddy Mill Worker Relationship Specialty Start Date End Date Iker Armstrong MD [address] [place] [phone] PCP - General Family Medicine 10/08/23 documented as of this encounter
--- OUTSIDE RECORDS SUMMARY | 2025-01-14 09:20 | XMS_ITS | Encounter Summary ---
Author Organization [facility] Address [address] [place] [address] Care Team Providers Care Engineer Technician Name Role Phone Iker Armstrong MD Primary Care Provider [phone] Encounter Details Date Type Department Care Team (Late st Contact Info) Description 01/07/2024 Orders Only [facility] [address] [place] [address] Fredi Snow, DO [address] [facility] [place] [address] [place] [address] Social History Tobacco Use Types Packs/Day Years [...] often do you attend chur ch or mosque services? Never 11/04/2023 Do you belong to any clubs o r organizations such as taoism groups, unions, fraternal or athletic groups, or [...] Recorded Patient Health Questionnaire-2 Score 2 11/05/2023 [facility] - Occupational Stress [...] place to sleep or slept in a halfway (including now)? Patient declined 11/04/2023 Comments Unknown [...] 2:00 PM EDT Office Visit [facility] [address] [place] [address] Iker Armstrong MD [address] [place] [phone] 12/20/2025 11:00 AM EDT Office Visit [facility] [address] [facility] [place] [phone] Fredi Snow DO [address] [facility] [place] [address] documented as of this encounter Procedures Procedure Name Priority Date/Time Associated Diagnosis Comments MM SCREENING MAMM WITH 3D CHRISTI - US AND ADDITIONAL Routine 01/07/2024 1:17 PM EDT documented in this encounter Results * MM SCREENING MAMM WITH 3D CHRISTI - US AND ADDITIONAL (01/07/2024 1:17 PM EDT) Anatomical Region Laterality Modality Radiographic Ani ging us Fredi Snow DO IMG XR PROCEDURES Final Result documented in this encounter Visit Diagnoses Not on filedocumented in this encounter Care Teams Engineer Technician Relationship Specialty Start Date End Date Iker Armstrong MD [address] [place] [phone] PCP - General Family Medicine 10/08/23 documented as of this encounter
--- OUTSIDE RECORDS SUMMARY | 2025-01-14 09:20 | XMS_ITS | Encounter Summary ---
Author Organization [facility] Address [address] [place] [address] Care Team Providers Care Surg Rn Name Role Phone Iker Armstrong MD Primary Care Provider [phone] Reason for Visit * Reason Comments Med Refill Encounter Details Date Type Department Care Team ([facility] Contact Info) Description 01/22/2024 [facility] [address] [place] [address] Iker Armstrong MD [address] [place] [phone] Idiopathic urticaria Social History Tobacco Use Types Packs/Day Years [...] often do you attend chur ch or scientology services? Never 11/04/2023 Do you belong to any clubs o r organizations such as scientologist groups, unions, fraternal or athletic groups, or [...] Recorded Patient Health Questionnaire-2 Score 2 11/05/2023 [facility] - Occupational Stress Questionnaire Answer Date [...] place to sleep or slept in a alf (including now)? Patient declined 11/04/2023 Comments Unknown [...] Visit [facility] [address] [place] [address] Iker Armstrong MD [address] [place] [phone] 12/20/2025 11:00 AM EDT Office Visit [facility] [address] [place] [phone] Fredi Snow DO [address] [address] documented as of this encounter Visit Diagnoses Diagnosis Idiopathic urticaria documented in this encounter Care Teams Surg Rn Relationship Specialty Start Date End Date Iker Armstrong MD [address] [place] [phone] PCP - General Family Medicine 10/08/23 documented as of this encounter
--- OUTSIDE RECORDS SUMMARY | 2025-01-14 09:20 | XMS_ITS | Clinical Summary ---
Author Organization [employer] [facility] Address [id number] [address] [place] [address] Care Team Providers Care Press Loader Name Role Phone Iker Armstrong MD Primary Care Provider [phone] Allergies Active Allergy Reactions Criticality Noted Date Comments Levothyroxine Hives 10/06/2017 Other Hives High 10/06/2017 Thyroid medication Medications sertraline (ZOLOFT) 100 mg tablet Take 200 mg by mouth daily. Active levothyroxine (SYNTHROID) 137 MCG tablet Take 137 mcg by mouth daily. Active lamoTRIgine (LaMICtal) 150 mg tablet Take 300 mg by mouth daily. Active norethindrone (JOLIVETTE) 0.35 mg tablet Take 1 tablet by mouth daily. Active montelukast (SINGULAIR) 10 mg tablet Take 10 mg by mouth daily. Active HYDROcodone-aceta minophen (NORCO) 5-325 mg per tabletIndications :Acute postoperative pain,Acute appendicitis with localized peritonitis Take 1 tablet by mouth every 6 (six) hours as needed for pain for up to 15 doses. Max Daily Amount: 4 tablets 15 tablet 8 Active Additional Information Patient not taking.Reported on 09/02/2019 Active Problems Problem Noted Date Diagnosed Date Bilateral tympanic membrane perforation 09/02/19 20 Family history of breast cancer 10/31/2017 Appendicitis 10/06/2017 Immunizations No known immunizations Social History Tobacco Use Types Packs/Day Years Used Date Smoking Tobacco: Never Smokeless Tobacco: Never Alcohol Use Standard Drinks/Week Comments No 0 (1 standard drink = 0.6 oz pur e alcohol) Childcare Answer Date Recorded Childcare Unknown 02/04/2019 Employment Answer Date Recorded Employment Unknown 02/04/2019 Purpose - Life Answer Date Recorded Purpose and direction in life Unknown Comments No Sex and Gender Information Value Date Recorded Sex Assigned at Not on file Legal Sex Female 11:33 AM EDT Gender Identity Not on file Sexual Orientation Not on file Last Filed Vital Signs Vital Sign Reading Time Taken Comments Blood Pressure 120/80 10/22/2017 3:54 PM EST Pulse 91 10/06/2017 4:27 PM EST Temperature 36.7 C (98.1 F) 10/06/2017 4:27 PM EST Respiratory Rate 16 10/06/2017 4:27 PM EST Oxygen Saturation 92% 10/06/2017 4:27 PM EST Inhaled Oxygen Concentration - - Weight 133.8 kg (295 lb) 09/02/2019 9:34 AM EST Height 162.6 cm (5' 4 ) 09/02/2019 9:34 AM EST Body Mass Index 50.64 09/02/2019 9:34 AM EST Plan of Treatment Health Maintenance Due Date Last Done Comments Depression Screening 1998 Tobacco Screening 1998 Adult BMI Screening 2004 COVID-19 Vaccine (2023-2 5 season) 2024 07/21/2021, 12/17/2020, 11/26/2020 Influenza Vaccine 04/26/2025 07/01/2021, , 07/02/2015 Pap Smear 12/09/2026 12/10/2023, 11/26/2022 DTaP,Tdap and Td Vaccines (7 - Td or Tdap) 06/23/2029 06/23/2019, 01/05/1999, 04/04/1992, Additional history exists Medical Devices Not on file Insurance [employer] Advance Directives * Full Code (Latest Code Status on File) Date Activated Date Inactivated Comments 10/06/2017 6:42 AM 10/06/2017 9:36 PM Care Teams Press Loader Relationship Specialty Start Date End Date Iker Armstrong MD PCP - General 05/21/17
--- NOTE | 2025-01-14 09:23 | MM_ITS ---
Patient Name: JEET STEVENSON MR#: [id number] : 1985 Exam Date: 01/14/2025 Ordering Doctor: DR NIKKI VALERO . RADIOLOGY REPORT PROCEDURE: MM TOMOSYNTHESIS SCREENING BI COMPARISON: MM TOMOSYNTHESIS SCREENING BI, 01/07/2024. MG MAMM SCREEN 3D LINDA CAD, 12/25/2022. MG MAMM SCREEN 3D LINDA CAD, 12/13/2021. MG MAMM LINDA SCRN W CAD DIG, 01/27/2013. INDICATIONS: Screening Calculator Name NCI Breast Cancer Risk Assessment Tool 5 Year Breast Cancer Risk 1.00% Lifetime Breast Cancer Risk 20.10% Personal Breast Cancer No Personal Ovarian Cancer No Treatments None Family Cancers Mother with breast cancer at age 30; Grandfather-maternal with lung cancer at age ~65; Grandfather-paternal with lung cancer at age ~65. LOCATION: The [facility] BREAST COMPOSITION: There are scattered areas of fibroglandular density. FINDINGS: RIGHT BREAST: No significant suspicious finding. LEFT BREAST: No significant suspicious finding. DIAGNOSTIC CATEGORY 1--NEGATIVE. RECOMMENDATIONS: ROUTINE MAMMOGRAM AND CLINICAL EVALUATION IN 12 MONTHS. PLEASE NOTE: A NORMAL MAMMOGRAM DOES NOT EXCLUDE THE POSSIBILITY OF BREAST CANCER. A CLINICALLY SUSPICIOUS PALPABLE LUMP SHOULD BE BIOPSIED. Dictated by: Adrian Miranda MD on 01/14/2025 at 14:40 Approved by: Adrian Miranda MD on 01/14/2025 at 14:43
== END 2025-01-14 09:19 | disposition home or self-care (01) ==
LOC: MAMMO 09:18
PROVIDERS: PCP Family Medicine; Visit Provider Obstetrics & Gynecology
DX: Z12.31 Encounter for screening mammogram for malignant neoplasm of breast (principal); Z80.3 Family history of malignant neoplasm of breast; Z80.1 Family history of malignant neoplasm of trachea, bronchus and lung
CPT/HCPCS: 77063; 77067

== ENCOUNTER 2025-05-18 11:12 | Outpatient (OUT) | payer OTHER, SELFPAY ==
--- OUTSIDE RECORDS SUMMARY | 2025-05-18 11:19 | XMS_ITS | CCD ---
Author Organization [facility] CliniSymi Care Team Providers Care Supervisor [employer] Name Role Phone Nate Rubio Primary Care Physician Nate Kapadia Unavailable Unavailable Lor Glover Unavailable Jake Ny Unavailable Gemma Michael Primary Care Physician UnavailNate Couch Unavailable Unavailable MISC, DR MCGOWAN Admitting Unavailable MISC, DR MCGOWAN Attending Unavailable MISC, DR MCGOWAN Consulting Unavailable NADERER, DR IKER Smalls Primary Care Unavailable EDY ., DR JORDAN Admitting Unavailable EDY ., DR JORDAN Attending Unavailable EDY ., DR JORDAN Consulting Unavailable NADERER, DR IKER Smalls Primary Care Unavailable EDY ., DR JORDAN Admitting Unavailable EDY ., DR JORDAN Attending Unavailable EDY ., DR JORDAN Consulting Unavailable NADERER, DR IKER Smalls Primary Care Unavailable ZIEBER, DR LANCE Biggs Consulting Unavailable KEZIA SALAMANCA Consulting Unavailable KEZIA SALAMANCA Admitting Unavailable NADERER, DR IKER Smalls Primary Care Unavailable KEZIA SALAMANCA Attending Unavailable NADGREG, DR IKER Smalls Primary Care Unavailable NADEREKalyan, DR IKER Smalls Admitting Unavailable NADERER, DR IKER Smalls Attending Unavailable NADERER, DR IKER Smalls Consulting Unavailable MISC, DR MCGOWAN Attending Unavailable MISC, DR MCGOWAN Admitting Unavailable MISC, DR MCGOWAN Consulting Unavailable NADGREG, DR IKER Smalls Primary Care Unavailable Gemma Michael Primary Care Physician Iker Mansfield MD Primary Care Provider Gemma Michael Primary Care Physician IKER Mansfield Attending Unavailable EDYNIKKI Attending Unavailable NADERER, IKER Attending Unavailable NADERER, IKER Attending Unavailable NADEREIKER Biggs Attending Unavailable NADIKER GARZA Attending Unavailable Iker Maria MD Primary Care Provider Inidra Millan APRN Attending Provider Allergies Allergy Classification Reported Allergen(s) Allergy Type Date of Onset Reaction(s) Facility (16 sources) Amoxicillin; Translations: [amoxicillin] Drug Allergy 4 Rash [facility] Healthcare (16 sources) Other Allergy to substance (disorder) 8 [facility] Healthcare Work Phone: (2 sources) methIMAzole Drug Allergy rash [place] [employer] Other (1 source) methIMAzole Drug Allergy 6 [facility] (11 sources) methIMAzole Drug Allergy 4 [facility] (11 sources) metroNIDAZOLE Drug Allergy 4 [facility] Medications Current Medications Medication Drug Class(es) Dates Sig (Normalized) Sig (Original) cephalexin 500 mg oral capsule (2 sources) Cephalosporin Antibacterial Start: 10-03-2021 take 1 capsule by mouth every six hours Cephalexin 500 MG 1 capsule Orally Four times a day for 10 day(s) Sep, Active clobetasol propionate 0.5 mg/ml topical cream (3 sources) Corticosteroid Start: 12-14-2024 End: 12-21-2024 clobetasol (Temovate) 0.05 % cream Indications: Skin irritation Apply 1 application topically in the morning and 1 application before bedtime. Do all this for 7 days. Apply to affected area twice a day. 60 g 12/14/2024 12/21/2024 Active fexofenadine hydrochloride 180 mg oral tablet (19 sources) Histamine-1 Receptor Antagonist End: 05-27-2023 take 1 tablet by mouth once daily fexofenadine (Camille Allergy) 180 MG tablet Take 180 mg by mouth Daily Active Camille Active fluconazole 150 mg oral tablet (5 sources) Azole Antifungal Start: 12-14-2024 End: 12-18-2024 take 1 tablet by mouth once fluconazole (Diflucan) 150 MG tablet Indications: Yeast infection Take 1 tablet (150 mg) by mouth every 3rd (third) day for 2 doses 2 tablet 12/14/2024 12/18/2024 Active Start: 09-01-2024 End: 09-08-2024 take 1 tablet by mouth once daily fluconazole (Diflucan) 200 MG tablet Indications: Acute non-recurrent pansinusitis Take 1 tablet (200 mg) by mouth Daily for 7 days 7 tablet 09/01/2024 09/08/2024 Active hydrocortisone 10 mg/ml / neomycin 3.5 mg/ml / polymyxin b [id number] unt/ml otic suspension (2 sources) Aminoglycoside Antibacterial, Polymyxin-class Antibacterial, Corticosteroid Start: 09-01-2024 End: 09-11-2024 fzgjxmrb-iszhdjupu-dygizrtkp isone (Cortisporin) 3.5-75380-5 otic suspension Indications: Acute nonsuppurative otitis media, left Administer 4 drops into affected ear(s) in the morning and 4 drops at noon and 4 drops in the evening and 4 drops before bedtime. Do all this for 10 days. 7.5 mL 09/01/2024 09/11/2024 Active levoFLOXacin 750 mg oral tablet (2 sources) Quinolone Antimicrobial Start: 09-01-2024 End: 09-08-2024 take 1 tablet by mouth once daily levoFLOXacin (Levaquin) 750 MG tablet Indications: Acute non-recurrent pansinusitis Take 1 tablet (750 mg) by mouth Daily for 7 days 7 tablet 09/01/2024 09/08/2024 Active levothyroxine sodium 0.175 mg oral tablet (20 sources) l-Thyroxine Start: 05-08-2025 take 1 tablet by mouth once daily Levothyroxine 175 mcg tablet Active 175 MCG PO Daily May 08, 2025 12:00am Complies with drug therapy Start: 06-04-2024 take 1 tablet by more th once daily levothyroxine oral tablet 175 mcg 06/04/2024 Take 1 tablet daily with only water, at least 2 hr after and 30 min prior to eating or taking other meds. BRAD Mylan Start: 05-27-2023 take 1 tablet by more th before mealtime levothyroxine (Synthroid, Levoxyl) 175 MCG tablet Take 1 tablet by mouth in the morning. Take before meals. 05/27/2023 Active Start: 05-29-2022 levothyroxine 150 mcg tablet 05/29/2022 Take 1 tablet daily except take 1 1/2 tablets on Sundays with water on an empty stomach. Start: 08-31-2021 End: 05-28-2022 levothyroxine 137 mcg [...] w/ water only for 30 minutes. BRAD Start: 06-01-2019 take 1 tablet by more th once daily, then take 1 tablet by mouth once daily in the morning levothyroxine 137 mcg oral tablet 06/01/2019 take 1 everyday except Saturday take 1 1/2 by mouth every morning w/ water only for 30 minutes Levothyroxine So dium 137 mg 1 daily Active LORazepam 0.5 mg oral tablet (5 sources) Benzodiazepine Start: 10-13-2024 End: 10-23-2024 take 1 tablet by mouth three times daily as needed for anxiety LORazepam (Ativan) 0.5 MG tablet Indications: Generalized anxiety disorder (CMS/HCC) Take 1 tablet (0.5 mg) by mouth 3 (three) times a day as needed for anxiety for up to 10 days 30 tablet 1 10/13/2024 Active montelukast 10 mg oral tablet (18 sources) Leukotriene Receptor Antagonist Start: 01-22-2024 take 1 tablet by mouth once daily montelukast (Singulair) 10 MG tablet Indications: Idiopathic urticaria Take 1 tablet (10 mg) by mouth Daily 30 tablet 5 01/22/2024 Active End: 05-27-2023 take 1 tablet by mouth once daily in the evening Singulair 10 mg oral tablet 05/27/2023 take 1 tablet (10 mg) by oral route once daily in the evening Singulair Active mupirocin 0.02 mg/mg topical ointment (13 sources) RNA Synthetase Inhibitor Antibacterial Start: 04-13-2024 mupirocin (Bactr oban) 2 % ointment Indications: Folliculitis Apply topically 3 (three) times a day 04/13/2024 Active Mupirocin 2 % 1 application Externally Twice a day for 10 days Apply small amount to the abdominal abscess area twice a day for 10 days or until the area heals Active Nasacort Allergy 24HR (2 sources) Nasacort Allergy 24HR Active norethindrone 0.35 mg oral tablet (20 sources) Start: 05-08-2025 take 1 tablet by mouth once daily Norethindrone (Contraceptive) (Jencycla) 0.35 mg tablet Active 0.35 MG PO Daily May 08, 2025 12:00am Complies with drug therapy Start: 12-10-2023 End: 12-14-2024 take 1 tablet by mouth once daily norethindrone (Micronor) 0.35 MG tablet Indications: control counseling Take 1 tablet (0.35 mg) by mouth Daily 28 tablet 12 12/14/2024 Active Start: 12-10-2023 End: 03-19-2014 take 1 tablet by mouth once daily norethindrone (Micronor) 0.35 MG tablet Indications: control counseling Take 1 tablet (0.35 mg) by mouth Daily 28 tablet 12 12/10/2023 Active End: 03-19-2014 take 1 tablet by mouth once daily Micronor (28) 0.35 mg oral tablet 03/19/2014 take 1 tablet by oral route once daily predniSONE 50 mg oral tablet (2 sources) Start: 09-01-2024 End: 09-07-2024 take 1 tablet by mouth once daily predniSONE (Deltasone) 50 MG tablet Indications: Acute non-recurrent pansinusitis Take 1 tablet (50 mg) by mouth Daily for 6 days 6 tablet 09/01/2024 09/07/2024 Active sertraline 100 mg oral tablet (20 sources) Serotonin Reuptake Inhibitor Start: 05-08-2025 take 2 tablets by mouth once daily Sertraline (Zoloft) 100 mg tablet Active 200 MG PO Daily May 08, 2025 12:00am Complies with drug therapy Start: 05-30-2016 take 2 tablets by mo uth once daily Zoloft 100 mg oral tablet 05/30/2016 Take 2 tablets by mouth once daily End: 05-26-2015 take 1 tablet by mouth once daily Zoloft 50 mg oral ta blet 05/26/2015 take 1 tablet (50 mg) by oral route once daily Zoloft 200 mg 1 tablet Orally Active sulfamethoxazole 800 mg / trimethoprim 160 mg oral tablet (2 sources) Dihydrofolate Reductase Inhibitor Antibacterial, Sulfonamide Antimicrobial Start: 10-03-2021 take 1 tablet by mouth every twelve hours Bactrim DS 800-160 MG 1 tablet Orally Twice a day for 10 day(s) Sep, Active SUMAtriptan 25 mg oral tablet (16 sources) Serotonin-1b and Serotonin-1d Receptor Agonist Start: 04-13-2024 SUMAtriptan (Imitrex) 25 MG tablet Indications: Migraine without aura and without status migrainosus, not intractable (CMS/HCC) Take 1 tablet (25 mg) by mouth 1 (one) time if needed for migraine May repeat dose once in 2 hours if no relief. Do not exceed 2 doses in 24 hours. 04/13/2024 Active End: 05-29-2022 take 1 tablet by mouth once Imitrex 25 mg oral tablet 05/29/2022 take 1 tablet (25 mg) by oral route once with fluids as early as possible after the onset of a migraine attack;may repeat after 2 hours if headache returns, not to exceed 200mg in 24hrs traZODone hydrochloride 50 mg oral tablet (11 sources) Serotonin Reuptake Inhibitor Start: 10-13-2024 take 1 tablet by mouth at bedtime traZODone (Desyrel) 50 MG tablet Take 1 tablet (50 mg) by mouth at bedtime 10/13/2024 Active take 1 tablet by more th once daily at bedtime as needed trazodone 50 mg oral tablet take 1 table t (50 mg) by oral route once daily at bedtime as needed traZODone (Desyrel) 25 MG split tablet (7 sources) End: 10-13-2024 take 2 tablets by mouth at bedtime traZODone (Desyrel) 25 MG split tablet Take 50 mg by mouth at bedtime 10/13/2024 Discontinued (Dose adjustment) take 2 tablets by mouth at bedti me traZODone (Desyrel) 25 MG split tablet Take 50 mg by mouth at bedtime Active Completed/Discontinued Medications Medication Drug Class(es) Dates Sig (Normalized) Sig (Original) amitriptyline hydrochloride 25 mg oral tablet (5 sources) Tricyclic Antidepressant End: 05-26-2015 take 1 tablet by mouth once daily at bedtime amitriptyline 25 mg oral tablet 05/26/2015 take 1 tablet (25 mg) by oral route once daily at bedtime cetirizine hydrochloride 10 mg oral tablet (5 sources) Histamine-1 Receptor Antagonist take 1 tablet by mouth once daily Zyrtec 10 mg oral tablet take 1 tablet (10 mg) by oral route once daily cholecalciferol 0.05 mg oral capsule (5 sources) Vitamin D End: 05-27-2023 take 1 capsule by mouth once daily Vitamin D3 2,000 unit oral capsule 05/27/2023 take 1 capsule by oral route daily citalopram 20 mg oral tablet (5 sources) Serotonin Reuptake Inhibitor End: 03-19-2014 take 1 tablet by mouth once daily Celexa 20 mg oral tablet 03/19/2014 take 1 tablet (20 mg) by oral route once daily diazePAM 5 mg oral tablet (5 sources) Benzodiazepine End: 05-29-2022 take 1 tablet by mouth three times daily as needed diazepam 5 mg oral tablet 05/29/2022 take 1 tablet (5 mg) by oral route 3 times per day as needed lactobacillus acidophilus [id number] unt oral capsule (5 sources) End: 06-01-2019 take 1 capsule by mouth once daily Probiotic 10 billion cell oral capsule 06/01/2019 take 1 capsule by oral route daily lamoTRIgine 150 mg oral tablet (7 sources) Mood Stabilizer, Anti-epileptic Agent Start: 05-29-2018 End: 06-02-2020 take 1 tablet by mouth once daily Lamictal 150 mg oral tablet 05/29/2018 06/02/2020 take 1 tablet (150 mg) by oral route once daily LaMICtal Active 24 hr propranolol hydrochloride 120 mg extended release oral capsule (5 sources) beta-Adrenergic Nicole End: 05-29-2018 take 1 capsule by mouth once daily propranolol 120 mg oral capsule,extended release 24 hr 05/29/2018 take 1 capsule (120 mg) by oral route once daily QUEtiapine 200 mg oral tablet (5 sources) Atypical Antipsychotic End: 05-29-2017 take 1 tablet by mouth once daily Seroquel 200 mg oral tablet 05/29/2017 take 1 tablet (200 mg) by oral route once daily topiramate 50 mg oral tablet (5 sources) End: 05-31-2021 take 1 tablet by mouth once daily topiramate 50 mg oral tablet 05/31/2021 take 1 tablet (50 mg) by oral route once per day Problems Active Problems Problem Classification Problem Date Documented Date Episodic/Chronic Adjustment disorders (10 sources) Grief finding; Translations: [Adjustment disorder with depressed mood] Onset: 10-13-2024 10-13-2024 Chronic Anxiety disorders (13 sources) Generalized anxiety disorder; Translations: [Generalized anxiety disorder] Onset: 11-05-2023 11-05-2023 Chronic Coagulation and hemorrhagic disorders (11 sources) Factor V Leiden mutation; Translations: [Activated protein C resistance] Onset: 11-05-2023 11-05-2023 Chronic Complications of surgical procedures or medical care (20 sources) Postprocedural hypothyroidism; 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] Onset: 05-26-2015 Chronic Contraceptive and procreative management (2 sources) Patient encounter status; Translations: [Encounter for other general counseling and advice on contraception] 12-14-2024 Episodic Headache; including migraine (13 sources) Migraine without aura, not refractory ; Translations: [Migraine without aura, not intractable, without status migrainosus] Onset: 11-05-2023 01-15-2024 Chronic Immunizations and screening for infectious disease (1 source) Encounter for screening for human papillomavirus (HPV); Translations: [ENC SCREENING HUMAN PAPILLOMAVIRUS] Onset: 11-30-2022 Episodic Miscellaneous mental health disorders (13 sources) Primary insomnia; Translations: [Primary insomnia] Onset: 11-05-2023 01-15-2024 Chronic Mycoses (2 sources) Mycosis; Translations: [Candidiasis, unspecified] 12-14-2024 Episodic Nutritional deficiencies (12 sources) Vitamin D deficiency, unspecified; Translations: [Vitamin D deficiency] Onset: 05-21-2022 11-05-2023 Chronic Other nervous system disorders (11 sources) Sleep related bruxism; 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] Onset: 01-15-2024 01-15-2024 Chronic Other nutritional; endocrine; and metabolic disorders (2 sources) Morbid obesity; Translations: [Morbid (severe) obesity due to excess calories] Onset: 04-13-2024 04-13-2024 Chronic Other nutritional; endocrine; and metabolic disorders (11 sources) Severe obesity; Translations: [Class 3 severe obesity due to excess calories without serious comorbidity with body mass index (BMI) of 50.0 to 59.9 in adult ([facility])] Onset: 04-13-2024 09-01-2024 Chronic Other screening for suspected conditions (not mental disorders or infectious disease) (10 sources) Encounter for screening mammogram for malignant neoplasm of breast; Translations: [Encounter for screening for malignant neoplasm of cervix] Onset: 11-26-2022 Episodic Other skin disorders (2 sources) Skin irritation ; Translations: [Other skin changes] 12-14-2024 Episodic Other upper respiratory disease (13 sources) Allergic rhinitis due to pollen; Translations: [Allergic rhinitis due to pollen] Onset: 01-15-2024 01-15-2024 Chronic Residual codes; unclassified (1 source) Family history of malignant neoplasm of breast; Translations: [FAMILY HX MALIG NEOPLASM OF BREAST] Onset: 01-01-2023 Episodic Residual codes; unclassified (1 source) Family history of malignant neoplasm of trachea, bronchus and lung; Translations: [FAM HX MALIG NEOPLSM TRACH BRON LNG] Onset: 01-01-2023 Episodic Residual codes; unclassified (2 sources) Family history of breast cancer; Translations: [Family history of malignant neoplasm of breast] 12-14-2024 Episodic Schizophrenia and other psychotic disorders (11 sources) Paranoid disorder; Translations: [Delusional disorders] Onset: 11-05-2023 11-05-2023 Chronic Thyroid disorders (20 sources) Hypothyroidism, unspecified; Translations: [Graves' disease] Onset: 12-31-2013 Chronic Past or Other Problems Problem Classification Problem Date Documented Date Episodic/Chronic Allergic reactions (11 sources) Idiopathic urticaria; Translations: [Idiopathic urticaria] Onset: 01-22-2024 01-22-2024 Episodic Bacterial infection; unspecified site (1 source) Personal history of Methicillin resistant Staphylococcus aureus infection; Translations: [PERS HX METHICILLIN RSIST STAPH INF] Onset: 01-16-2022 Episodic Other skin disorders (11 sources) Acne vulgaris; Translations: [Acne vulgaris] Onset: 11-05-2023 11-05-2023 Episodic Other skin disorders (11 sources) Hidradenitis suppurativa; Translations: [Hidradenitis suppurativa] Onset: 11-05-2023 11-05-2023 Episodic Other upper respiratory infections (13 sources) Acute maxillary sinusitis; Translations: [Maxillary sinusitis, acute] Onset: 09-01-2024 Resolved: 10-13-2024 09-01-2024 Episodic Otitis media and related conditions (20 sources) Acute suppurative otitis media of right ear; Translations: [Acute suppurative otitis media without spontaneous rupture of ear drum, right ear] Onset: 11-05-2023 Resolved: 10-13-2024 01-15-2024 Episodic Skin and subcutaneous tissue infections (9 sources) Abscess; Translations: [Cutaneous abscess, unspecified] Onset: 10-03-2021 Resolved: 01-13-2022 Episodic Results Test Name Value Interpretation Reference Range Facility IGP,APTIMA HPV,AGE GDLNon AGE GDLN ACOG TESTING Note . [facility] Comment on above: TESTS RESULT FLAG UN ITS REF RANGE LAB Clinician Provided Cytology Information Source.............Cervix;Endocervix No. of containers..01 ThinPrep Vial Age Algo ACOG Katy... 30-65 01 FLAG LEGEND: L-Low Normal,H-High Normal,LL-Alert Low,HH-Alert High <-Panic Low,>-Panic High,A-Abnormal,AA-Critical Abnormal Performed at: 01 =G [address] [address] Chasity Yancey MD, HPV APTIMA Negative Negative [facility] Comment on above: This nucleic acid am plification test detects fourteen high- risk HPV types (16,18,31,33,35,39,45,51,52,56,58,59,66,68) without differentiation. Performed at: = - [facility] [id number] [employer] Worker: Chasity Yancey MD, Phone: [phone] Performed at: - [facility] [id number] [employer] Worker: Chasity Yancey MD, Phone: [phone] IGP, APTIMA HPV, RFX 16/18,45 Note . [facility] Comment on above: TESTS RESULT FLAG UN ITS REF RANGE LAB DIAGNOSIS: 02 NEGATIVE FOR INTRAEPITHELIAL LESION OR MALIGNANCY. CELLULAR CHANGES ASSOCIATED WITH INFLAMMATION ARE PRESENT. Specimen adequacy: 02 Satisfactory for evaluation. No endocervical component is identified. Performed by: Debra Abbott Beef Selector ([facility]) . 02 Note: Note 02 The Pap [...] <-Panic Low,>-Panic High,A-Abnormal,AA-Critical Abnormal Performed at: 02 WB [facility] [place] [address] Chasity Yancey MD, BRUSH-SPATULA CERVIX ENDOCERVIX [facility] ALL THYROID STIM HORMONEon 1 TSH Qn 0.660 m[IU]/L [facility] ALL THYROXINE (T4)on 024 T4 [Mass/Vol] 9.90 ug/dL 4.80 - 13.90 ug/dL [facility] Laboratory - Chemistry and C hemistry - challengeon 05-26-2024 T4 [Mass/Vol] 9.90 ug/dL Invalid Interpretation Code [employer] TSH Qn 0.660 m[IU]/L Invalid Interpretation Code [facility] No Panel Informationon 05-26 RD Invalid Interpretation Code [facility] Cytology Cervical or vaginal smear or scraping studyon 12-10-2023 [facility] Laboratory - Chemistry and C hemistry - challengeon 09-18-2023 T4 [Mass/Vol] 7.20 ug/dL Invalid Interpretation Code [employer] TSH Qn 1.069 m[IU]/L Invalid Interpretation Code [employer] No Panel Informationon 09-18 RM Invalid Interpretation Code [employer] No Panel Informationon 05-23 Tobacco smoking status Non-Smoker Invalid Interpretation Code [employer] MG MAMM SCREEN 3D LINDA CADon 12-25-2022 MG MAMM SCREEN 3D LINDA CAD Patient: JENY STEVENSONBrittany Exam Date: 12/25/2022 : 1985 Gender:F Ordering : DR NIKKI SNOW . Admission #: [id number] Family : Order #: [id number] CLICK HERE TO VIEW EXAM RADIOLOGY REPORT PROCEDURE: MAMMOGRAM SCREENING 3D BILATERAL CAD COMPARISON: MG MAMM SCREEN 3D LINDA CAD, 12/13/2021. MG MAMM SCREEN LINAD W CAD, 09/13/2020. MG MAMM SCREEN LINDA [...] lung cancer at age 66. LOCATION: [facility] BREAST COMPOSITION: Scattered areas fibroglandular density. FINDINGS: [...] Lance Hernandez M.D. on 12/25/2022 at 13:34 [facility] PAP ACOG PANEL 2: 30 to 65on 12-02-2022 . . Normal [facility] Comment on above: Result Comment: Perf ormed at: WB Performed By: #### [id number] #### [facility] [address] [address] [address] Vinnie Gallardo Age Gdln ACOG Testing 30-65 Normal [facility] Comment on above: Performed By: #### [id number] #### [facility] [address] [address] [address] Vinnie Gallardo DIAGNOSIS: Comment Normal [facility] Comment on above: Result Comment: NEGA TIVE FOR INTRAEPITHELIAL LESION OR MALIGNANCY. Performed at: WB Performed By: #### [id number] #### [facility] [address] [place] [address] Dr. Vinnie Gallardo HPV Aptima Negative Normal Negative [facility] Comment on above: Result Comment: This nucleic acid amplification test detects fourteen high-risk HPV types (16,18,31,33,35,39,45,51,52,56,58,59,66,68) without differentiation. Performed at: =G Performed By: #### [id number] #### [facility] [address] [address] [address] Vinnie Gallardo HPV Genotype Reflex Comment Normal [facility] Comment on above: Result Comment: Crit eria not met, HPV Genotype not performed. Performed at: WB Performed By: #### [id number] #### [facility] [address] [place] [address] Dr. Vinnie Gallardo Methodology: Comment Normal [facility] Comment on above: Result Comment: This liquid based ThinPrep(R) pap test was screened with the use of an image guided system. Performed at: WB Performed By: #### [id number] #### [facility] [address] [place] [address] Dr. Vinnie Gallardo Note: Comment Normal [facility] Comment on above: Result Comment: The Pap smear is a screening test designed to aid in the detection of premalignant and malignant conditions of the uterine cervix. It is not a diagnostic procedure and should not be used as the sole means of detecting cervical cancer. Both false-positive and false-negative reports do occur. . Performed at: WB Performed By: #### [id number] #### [facility] [address] [place] [address] Dr. Vinnie Gallardo Performed by: Comment Normal [facility] Comment on above: Result Comment: Laura Maldonado, Clinical Assistant (ASCP) Performed at: WB Performed By: #### [id number] #### [facility] [address] [place] [address] Dr. Vinnie Gallardo Specimen adequacy: Comment Normal [facility] Comment on above: Result Comment: Sati sfactory for evaluation. No endocervical component is identified. Performed at: WB Performed By: #### [id number] #### [facility] [address] [place] [address] Dr. Vinnie Gallardo Laboratory - Chemistry and C hemistry - challengeon 09-07-2022 TSH Qn 3.013 m[IU]/L Invalid Interpretation Code [employer] No Panel Informationon 09-07 ks Invalid Interpretation Code [facility] T4on 09-07-2022 T4 [Mass/Vol] 9.30 ug/dL Invalid Interpretation Code [facility] Comment on above: Performed By: #### T 4, TSH #### [facility] [address] [place] [address] Dr. Vinnie Gallardo TSHon 09-07-2022 TSH 3.013 uIU/mL Normal 0.358-3.740 [facility] Comment on above: Performed By: #### L IPID, LIVER, BMP #### [facility] [address] [place] [address] Dr. Vinnie Gallardo T4 LABCORPon 05-19-2022 T4 [Mass/Vol] 7.5 ug/dL Normal 4.5-12.0 [facility] Comment on above: Performed By: #### T 4LC #### [facility] [address] [place] [address] Dr. Vinnie Gallardo CBC AUTO DIFFon 05-18-2022 BASO # 0.0 103/ul Normal 0.0-0.1 [facility] Comment on above: Performed By: #### L IPID, LIVER, BMP #### [facility] [address] [place] [address] Dr. Vinnie Gallardo Basophils/100 WBC (Bld) 0.4 % Normal 0.2-2.0 [facility] Comment on above: Performed By: #### L IPID, LIVER, BMP #### [facility] [address] [place] [address] Dr. Vinnie Gallardo EO # 0.2 103/ul Normal 0.0-0.7 [facility] Comment on above: Performed By: #### L IPID, LIVER, BMP #### [facility] [address] [address] [address] Vinnie Gallardo Eosinophils/100 WBC (Bld) 2.4 % Normal 0.9-7.0 [facility] Comment on above: Performed By: #### L IPID, LIVER, BMP #### [facility] [address] [place] [address] Dr. Vinnie Gallardo Erythrocyte distribution width (RBC) [Ratio] 13.2 % Normal 11.0-15.0 [facility] Comment on above: Performed By: #### L IPID, LIVER, BMP #### [facility] [address] [place] [address] Dr. Vinnie Gallardo Hematocrit (Bld) [Volume fraction] 38.9 % Normal 36.0-48.0 [facility] Comment on above: Performed By: #### L IPID, LIVER, BMP #### [facility] [address] [place] [address] Dr. Vinnie Gallardo Hemoglobin (Bld) [Mass/Vol] 13.1 g/dL Normal 12.0-16.0 [facility] Comment on above: Performed By: #### L IPID, LIVER, BMP #### [facility] [address] [place] [address] Dr. Vinnie Gallardo IG # 0.05 10e3/ul Critically high 0.00-0.03 [facility] Comment on above: Performed By: #### L IPID, LIVER, BMP #### [facility] [address] [place] [address] Dr. Vinnie Gallardo IG % 0.5 % Normal 0.0-0.5 [facility] Comment on above: Performed By: #### L IPID, LIVER, BMP #### [facility] [address] [place] [address] Dr. Vinnie Gallardo LYMPH # 2.5 103/ul Normal 1.2-3.8 [facility] Comment on above: Performed By: #### L IPID, LIVER, BMP #### [facility] [address] [address] [address] Vinnie Gallardo Lymphocytes/100 WBC (Bld) 26.6 % Normal 20.5-60.0 [facility] Comment on above: Performed By: #### L IPID, LIVER, BMP #### [facility] [address] [place] [address] Dr. Vinnie Gallardo MANUAL DIFF REQ NO Normal [facility] Comment on above: Performed By: #### L IPID, LIVER, BMP #### [facility] [address] [place] [address] Dr. Vinnie Gallardo MCH (RBC) [Entitic mass] 29.7 pg Normal 26.7-34.0 [facility] Comment on above: Performed By: #### L IPID, LIVER, BMP #### [facility] [address] [place] [address] Dr. Vinnie Gallardo MCHC (RBC) [Mass/Vol] 33.7 g/dL Normal 29.9-35.2 [facility] Comment on above: Performed By: #### L IPID, LIVER, BMP #### [facility] [address] [place] [address] Dr. Vinnie Gallardo MCV (RBC) [Entitic vol] 88.2 fL Normal 81.0-99.0 [facility] Comment on above: Performed By: #### L IPID, LIVER, BMP #### [facility] [address] [place] [address] Dr. Vinnie Gallardo MONO # 0.6 103/ul Normal 0.3-0.8 [facility] Comment on above: Performed By: #### L IPID, LIVER, BMP #### [facility] [address] [place] [address] Dr. Vinnie Gallardo Monocytes/100 WBC (Bld) 6.5 % Normal 1.7-12.0 [facility] Comment on above: Performed By: #### L IPID, LIVER, BMP #### [facility] [address] [place] [address] Dr. Vinnie Gallardo NEUT # 6.0 103/ul Normal 1.4-6.5 [facility] Comment on above: Performed By: #### L IPID, LIVER, BMP #### [facility] [address] [address] [address] Vinnie Gallardo Neutrophils/100 WBC (Bld) 63.6 % Normal 43.0-75.0 [facility] Comment on above: Performed By: #### L IPID, LIVER, BMP #### [facility] [address] [address] [address] Vinnie Gallardo Platelet mean volume (Bld) [Entitic vol] 10.5 fL Normal 9.5-13.5 [facility] Comment on above: Performed By: #### L IPID, LIVER, BMP #### [facility] [address] [place] [address] Dr. Vinnie Gallardo PLT 276 103/ul Normal 150-450 [facility] Comment on above: Performed By: #### L IPID, LIVER, BMP #### [facility] [address] [place] [address] Dr. Vinnie Gallardo RBC 4.41 106/ul Normal 4.20-5.40 [facility] Comment on above: Performed By: #### L IPID, LIVER, BMP #### [facility] [address] [place] [address] Dr. Vinnie Gallardo WBC 9.4 103/ul Normal 4.0-11.0 [facility] Comment on above: Performed By: #### L IPID, LIVER, BMP #### [facility] [address] [place] [address] Dr. Vinnie Gallardo GLYCOHEMOGLOBIN A1Con 2021 ADA RECOMMENDATION SEE BELOW Normal [facility] Comment on above: Result Comment: ADA RECOMMENDED LIMIT 4.0 - 6.0 ADA THERAPEUTIC TARGET < 7.0 ACTION SUGGESTED > 7.0 Performed By: #### A 1C #### [facility] [address] [place] [address] Dr. Vinnie Gallardo Glucose [Mass/Vol] 94 mg/dL Normal [facility] Comment on above: Performed By: #### A 1C #### [facility] [address] [place] [address] Dr. Vinnie Gallardo HbA1c (Bld) [Mass fraction] 4.9 % Normal 4.5-6.2 [facility] Comment on above: Performed By: #### A 1C #### [facility] [address] [place] [address] Dr. Vinnie Gallardo LIPID PROFILEon 05-18-2022 CHOL-HDL RATIO NORM SEE BELOW Normal [facility] Comment on above: Result Comment: 3.3 - 4.4 LOW RISK 4.4 - 7.1 AVERAGE RISK 7.1 - 11.0 MODERATE RISK >11.0 HIGH RISK Performed By: #### L IPID, LIVER, BMP #### [facility] [address] [place] [address] Dr. Vinnie Gallardo Cholesterol [Mass/Vol] 143 mg/dL Normal <=200 [facility] Comment on above: Performed By: #### L IPID, LIVER, BMP #### [facility] [address] [place] [address] Dr. Vinnie Gallardo Cholesterol in HDL [Mass/Vol] 42 mg/dL Normal 40-60 [facility] Comment on above: Performed By: #### L IPID, LIVER, BMP #### [facility] [address] [place] [address] Dr. Vinnie Gallardo Cholesterol in LDL [Mass/Vol] 74.6 mg/dL Normal [facility] Comment on above: Performed By: #### L IPID, LIVER, BMP #### [facility] [address] [place] [address] Dr. Vinnie Gallardo Cholesterol.total/Ch olesterol in HDL [Mass ratio] 3.4 {ratio} Normal [facility] Comment on above: Performed By: #### L IPID, LIVER, BMP #### [facility] [address] [place] [address] Dr. Vinnie Gallardo HDL NORMAL > or = 60 mg/dl - LOW CARDIOVASCULAR RISK <40 mg/dl - HIGH CARDIOVASCULAR RISK Normal [facility] Comment on above: Performed By: #### L IPID, LIVER, BMP #### [facility] [address] [place] [address] Dr. Vinnie Gallardo LDL CALC NORMAL SEE BELOW Normal [facility] Comment on above: Result Comment: <100 mg/dl OPTIMAL 100 - 129 mg/dl NEAR OR ABOVE OPTIMAL 130 - 159 mg/dl BORDERLINE HIGH 160 - 189 mg/dl HIGH >190 mg/dl VERY HIGH Performed By: #### L IPID, LIVER, BMP #### [facility] [address] [address] [address] Vinnie Gallardo Triglyceride [Mass/Vol] 132 mg/dL Normal <=150 [facility] Comment on above: Performed By: #### L IPID, LIVER, BMP #### [facility] [address] [address] [address] Vinnie Gallardo VLDL CALC 26.4 mg/dL Normal [facility] Comment on above: Performed By: #### L IPID, LIVER, BMP #### [facility] [address] [address] [address] Vinnie Gallardo LIVER PROFILEon 05-18-2022 Albumin [Mass/Vol] 3.6 g/dL Normal 3.4-5.0 [facility] Comment on above: Performed By: #### L IPID, LIVER, BMP #### [facility] [address] [address] [address] Vinnie Gallardo Albumin/Globulin [Mass ratio] 0.9 {ratio} Normal [facility] Comment on above: Performed By: #### L IPID, LIVER, BMP #### [facility] [address] [address] [address] Vinnie Gallardo ALP [Catalytic activity/Vol] 84 U/L Normal 46-116 [facility] Comment on above: Performed By: #### L IPID, LIVER, BMP #### [facility] [address] [address] [address] Vinnie Gallardo ALT [Catalytic activity/Vol] 33 U/L Normal 14-59 [facility] Comment on above: Performed By: #### L IPID, LIVER, BMP #### [facility] [address] [address] [address] Vinnie Gallardo AST [Catalytic activity/Vol] 22 U/L Normal 15-37 [facility] Comment on above: Performed By: #### L IPID, LIVER, BMP #### [facility] [address] [address] [address] Vinnie Gallardo BILI, CONJUGATED 0.2 mg/dL Normal 0.0-0.2 [facility] Comment on above: Performed By: #### L IPID, LIVER, BMP #### [facility] [address] [address] [address] Vinnie Gallardo Bilirubin [Mass/Vol] 1.1 mg/dL Critically high 0.2-1.0 [facility] Comment on above: Performed By: #### L IPID, LIVER, BMP #### [facility] [address] [place] [address] Dr. Vinnie Gallardo Globulin (S) [Mass/Vol] 3.9 g/dL Normal [facility] Comment on above: Performed By: #### L IPID, LIVER, BMP #### [facility] [address] [address] [address] Vinnie Gallardo Protein [Mass/Vol] 7.5 g/dL Normal 6.4-8.2 [facility] Comment on above: Performed By: #### L IPID, LIVER, BMP #### [facility] [address] [place] [address] Dr. Vinnie Gallardo Laboratory - Chemistry and C hemistry - challengeon 05-18-2022 TSH Qn 4.724 H Invalid Interpretation Code [employer] No Panel Informationon 05-18 RM Invalid Interpretation Code [facility] PROF CHEM 8 (BAS METB)on Anion gap [Moles/Vol] 10.7 mmol/L Normal [facility] Comment on above: Performed By: #### L IPID, LIVER, BMP #### [facility] [address] [place] [address] Dr. Vinnie Gallardo Calcium [Mass/Vol] 8.5 mg/dL Normal 8.5-10.1 [facility] Comment on above: Performed By: #### L IPID, LIVER, BMP #### [facility] [address] [address] [address] Vinnie Gallardo Chloride [Moles/Vol] 104 mmol/L Normal 98-107 [facility] Comment on above: Performed By: #### L IPID, LIVER, BMP #### [facility] [address] [address] [address] Vinnie Gallardo CO2 [Moles/Vol] 26.9 mmol/L Normal 21.0-32.0 [facility] Comment on above: Performed By: #### L IPID, LIVER, BMP #### [facility] [address] [address] [address] Vinnie Gallardo Creatinine [Mass/Vol] 0.84 mg/dL Normal 0.55-1.02 [facility] Comment on above: Performed By: #### L IPID, LIVER, BMP #### [facility] [address] [address] [address] Vinnie Gallardo EGFR-AF ZAMBIAN >60 Normal >=60 [facility] Comment on above: Performed By: #### L IPID, LIVER, BMP #### [facility] [address] [address] [address] Vinnie Gallardo EGFR-NON AF ZAMBIAN >60 Normal >=60 [facility] Comment on above: Performed By: #### L IPID, LIVER, BMP #### [facility] [address] [address] [address] Vinnie Gallardo Glucose [Mass/Vol] 100 mg/dL Normal 74-106 [facility] Comment on above: Performed By: #### L IPID, LIVER, BMP #### [facility] [address] [address] [address] Vinnie Gallardo Potassium [Moles/Vol] 3.6 mmol/L Normal 3.5-5.1 [facility] Comment on above: Performed By: #### L IPID, LIVER, BMP #### [facility] [address] [address] [address] Vinnie Gallardo Sodium [Moles/Vol] 138 mmol/L Normal 136-145 [facility] Comment on above: Performed By: #### L IPID, LIVER, BMP #### [facility] [address] [place] [address] Dr. Vinnie Gallardo Urea nitrogen [Mass/Vol] 7.0 mg/dL Normal 7.0-18.0 [facility] Comment on above: Performed By: #### L IPID, LIVER, BMP #### [facility] [address] [place] [address] Dr. Vinnie Gallardo Urea nitrogen/Creatinine [Mass ratio] 8.3 mg/mg Normal [facility] Comment on above: Performed By: #### L IPID, LIVER, BMP #### [facility] [address] [place] [address] Dr. Vinnie Gallardo TSHon 05-18-2022 TSH 4.724 uIU/mL Critically high 0.358-3.740 [facility] Comment on above: Performed By: #### L IPID, LIVER, BMP #### [facility] [address] [place] [address] Dr. Vinnie Gallardo VITAMIN D 25 OHon 05-18-2022 VIT D 25-OH 12.4 ng/mL Normal [facility] Comment on above: Performed By: #### V ITAD #### [facility] [address] [place] [address] Dr. Vinnie Gallardo VIT D RANGES SEE BELOW Normal [facility] Comment on above: Result Comment: <20 ng/mL Vit D deficient 20 - <30 ng/mL Vit D insufficient 30 - 100 ng/mL Vit D sufficient >100 ng/mL Potential Toxicity Performed By: #### V ITAD #### [facility] [address] [place] [address] Dr. Vinnie Gallardo CBC AUTO DIFFon 01-13-2022 BASO # 0.0 103/ul Normal 0.0-0.1 [facility] Comment on above: Performed By: #### C BC #### [facility] [address] [place] [address] Dr. Vinnie Gallardo Basophils/100 WBC (Bld) 0.2 % Normal 0.2-2.0 [facility] Comment on above: Performed By: #### C BC #### [facility] [address] [place] [address] Dr. Vinnie Gallardo EO # 0.2 103/ul Normal 0.0-0.7 [facility] Comment on above: Performed By: #### C BC #### [facility] [address] [place] [address] Dr. Vinnie Gallardo Eosinophils/100 WBC (Bld) 1.5 % Normal 0.9-7.0 [facility] Comment on above: Performed By: #### C BC #### [facility] [address] [place] [address] Dr. Vinnie Gallardo Erythrocyte distribution width (RBC) [Ratio] 13.0 % Normal 11.0-15.0 [facility] Comment on above: Performed By: #### C BC #### [facility] [address] [place] [address] Dr. Vinnie Gallardo Hematocrit (Bld) [Volume fraction] 38.6 % Normal 36.0-48.0 [facility] Comment on above: Performed By: #### C BC #### [facility] [address] [place] [address] Dr. Vinnie Gallardo Hemoglobin (Bld) [Mass/Vol] 12.9 g/dL Normal 12.0-16.0 [facility] Comment on above: Performed By: #### C BC #### [facility] [address] [place] [address] Dr. Vinnie Gallardo IG # 0.05 10e3/ul Critically high 0.00-0.03 [facility] Comment on above: Performed By: #### C BC #### [facility] [address] [place] [address] Dr. Vinnie Gallardo IG % 0.4 % Normal 0.0-0.5 [facility] Comment on above: Performed By: #### C BC #### [facility] [address] [place] [address] Dr. Vinnie Gallardo LYMPH # 2.4 103/ul Normal 1.2-3.8 [facility] Comment on above: Performed By: #### C BC #### [facility] [address] [address] [address] Vinnie Gallardo Lymphocytes/100 WBC (Bld) 19.5 % Critically low 20.5-60.0 [facility] Comment on above: Performed By: #### C BC #### [facility] [address] [address] [address] Vinnie Gallardo MANUAL DIFF REQ NO Normal [facility] Comment on above: Performed By: #### C BC #### [facility] [address] [address] [address] Vinnie Gallardo MCH (RBC) [Entitic mass] 29.7 pg Normal 26.7-34.0 [facility] Comment on above: Performed By: #### C BC #### [facility] [address] [place] [address] Dr. Vinnie Gallardo MCHC (RBC) [Mass/Vol] 33.4 g/dL Normal 29.9-35.2 [facility] Comment on above: Performed By: #### C BC #### [facility] [address] [place] [address] Dr. Vinnie Gallardo MCV (RBC) [Entitic vol] 88.7 fL Normal 81.0-99.0 [facility] Comment on above: Performed By: #### C BC #### [facility] [address] [place] [address] Dr. Vinnie Gallardo MONO # 1.0 103/ul Critically high 0.3-0.8 [facility] Comment on above: Performed By: #### C BC #### [facility] [address] [place] [address] Dr. Vinnie Gallardo Monocytes/100 WBC (Bld) 8.2 % Normal 1.7-12.0 [facility] Comment on above: Performed By: #### C BC #### [facility] [address] [place] [address] Dr. Vinnie Gallardo NEUT # 8.7 103/ul Critically high 1.4-6.5 [facility] Comment on above: Performed By: #### C BC #### [facility] [address] [address] [address] Vinnie Gallardo Neutrophils/100 WBC (Bld) 70.2 % Normal 43.0-75.0 [facility] Comment on above: Performed By: #### C BC #### [facility] [address] [address] [address] Vinnie Gallardo Platelet mean volume (Bld) [Entitic vol] 10.1 fL Normal 9.5-13.5 [facility] Comment on above: Performed By: #### C BC #### [facility] [address] [address] [address] Vinnie Gallardo PLT 264 103/ul Normal 150-450 [facility] Comment on above: Performed By: #### C BC #### [facility] [address] [place] [address] Dr. Vinnie Gallardo RBC 4.35 106/ul Normal 4.20-5.40 [facility] Comment on above: Performed By: #### C BC #### [facility] [address] [place] [address] Dr. Vinnie Gallardo WBC 12.4 103/ul Critically high 4.0-11.0 [facility] Comment on above: Performed By: #### C BC #### [facility] [address] [place] [address] Dr. Vinnie Gallardo PROF CHEM 8 (BAS METB)on Anion gap [Moles/Vol] 12.0 mmol/L Normal [facility] Comment on above: Performed By: #### L IPID, LIVER, BMP #### [facility] [address] [place] [address] Dr. Vinnie Gallardo Calcium [Mass/Vol] 8.3 mg/dL Critically low 8.5-10.1 [facility] Comment on above: Performed By: #### L IPID, LIVER, BMP #### [facility] [address] [place] [address] Dr. Vinnie Gallardo Chloride [Moles/Vol] 105 mmol/L Normal 98-107 [facility] Comment on above: Performed By: #### L IPID, LIVER, BMP #### [facility] [address] [address] [address] Vinnie Gallardo CO2 [Moles/Vol] 26.6 mmol/L Normal 21.0-32.0 [facility] Comment on above: Performed By: #### L IPID, LIVER, BMP #### [facility] [address] [address] [address] Vinnie Gallardo Creatinine [Mass/Vol] 0.80 mg/dL Normal 0.55-1.02 [facility] Comment on above: Performed By: #### L IPID, LIVER, BMP #### [facility] [address] [place] [address] Dr. Vinnie Gallardo EGFR-AF ZAMBIAN >60 Normal >=60 [facility] Comment on above: Performed By: #### L IPID, LIVER, BMP #### [facility] [address] [place] [address] Dr. Vinnie Gallardo EGFR-NON AF ZAMBIAN >60 Normal >=60 [facility] Comment on above: Performed By: #### L IPID, LIVER, BMP #### [facility] [address] [place] [address] Dr. Vinnie Gallardo Glucose [Mass/Vol] 98 mg/dL Normal 74-106 [facility] Comment on above: Performed By: #### L IPID, LIVER, BMP #### [facility] [address] [address] [address] Vinnie Gallardo Potassium [Moles/Vol] 3.6 mmol/L Normal 3.5-5.1 [facility] Comment on above: Performed By: #### L IPID, LIVER, BMP #### [facility] [address] [address] [address] Vinnie Gallardo Sodium [Moles/Vol] 140 mmol/L Normal 136-145 [facility] Comment on above: Performed By: #### L IPID, LIVER, BMP #### [facility] [address] [address] [address] Vinnie Gallardo Urea nitrogen [Mass/Vol] 13.0 mg/dL Normal 7.0-18.0 [facility] Comment on above: Performed By: #### L IPID, LIVER, BMP #### [facility] [address] [place], [place] [address] Dr. Vinnie Gallardo Urea nitrogen/Creatinine [Mass ratio] 16.2 mg/mg Normal [facility] Comment on above: Performed By: #### L IPID, LIVER, BMP #### [facility] [address] [place], [place] [address] Dr. 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 PERFORMED BY: [place] [address] PATHOLOGIST [employer]IST LIAN GRAVES M.D. [facility] Comment on above: Performed By: #### A ERC #### [place] [id number] [facility] - Chemistry and C hemistry - challengeon 05-24-2021 T4 [Mass/Vol] 8.8 ug/dL Invalid Interpretation Code [employer] TSH Qn 6.04 H Invalid Interpretation Code [employer] No Panel Informationon 05-24 ls Invalid Interpretation Code [employer] Otheron 05-26-2020 ls Invalid Interpretation Code [employer] Thyroidon 05-26-2020 T4 [Mass/Vol] 7.6 ug/dL Invalid Interpretation Code [employer] TSH Qn 3.07 m[IU]/L Invalid Interpretation Code [employer] Otheron 05-25-2019 ls Invalid Interpretation Code [employer] Thyroidon 05-25-2019 T4 [Mass/Vol] 8.2 ug/dL Invalid Interpretation Code [employer] TSH Qn 3.12 m[IU]/L Invalid Interpretation Code [employer] Cardiacon 04-06-2019 Cholesterol [Mass/Vol] 175.0 mg/dL Invalid Interpretation Code [employer] Cholesterol in HDL [Mass/Vol] 39.0 mg/dL Invalid Interpretation Code [employer] Cholesterol in LDL [Mass/Vol] 108.0 mg/dL Invalid Interpretation Code [facility] [employer] Triglyceride [Mass/Vol] 138.0 mg/dL Invalid Interpretation Code [facility] [employer] Hematologyon 04-06-2019 Basophils/100 WBC (Bld) 0.50 % Invalid Interpretation Code [facility] [employer] Eosinophils/100 WBC (Bld) 1.80 % Invalid Interpretation Code [employer] Hematocrit (Bld) [Volume fraction] 39.80 % Invalid Interpretation Code [employer] Hemoglobin (Bld) [Mass/Vol] 13.40 g/dL Invalid Interpretation Code [employer] Lymphocytes/100 WBC (Bld) 28.40 % Invalid Interpretation Code [employer] [facility] MCH (RBC) [Entitic mass] 29.30 pg Invalid Interpretation Code [employer] MCV (RBC) [Entitic vol] 87.10 fL Invalid Interpretation Code [employer] Monocytes/100 WBC (Bld) 8.20 % Invalid Interpretation Code [facility] Neutrophils/100 WBC (Bld) 64.50 % Invalid Interpretation Code [employer] Platelets (Bld) [#/Vol] 273.0 10*3/uL Invalid Interpretation Code [employer] RBC (Bld) [#/Vol] 4.570 10*6/uL Invalid Interpretation Code [employer] WBC (Bld) [#/Vol] 8.40 10*3/uL Invalid Interpretation Code [employer] Metabolic Panelon 04-06-2019 Albumin [Mass/Vol] 3.70 g/dL Invalid Interpretation Code [employer] ALT [Catalytic activity/Vol] 46.0 U/L Invalid Interpretation Code [employer] Anion gap [Moles/Vol] 11.8 mmol/L Invalid Interpretation Code [employer] AST [Catalytic activity/Vol] 36.0 U/L Invalid Interpretation Code [employer] Calcium [Mass/Vol] 9.0 mg/dL Invalid Interpretation Code [employer] Chloride [Moles/Vol] 104.0 mmol/L Invalid Interpretation Code [employer] CO2 [Moles/Vol] 27.10 mmol/L Invalid Interpretation Code [employer] Creatinine [Mass/Vol] 0.820 mg/dL Invalid Interpretation Code [employer] GFR/1.73 sq M predicted among non-blacks MDRD (S/P/Bld) [Vol rate/Area] mL/min/{1.73_m2} Invalid Interpretation Code [employer] Glucose [Mass/Vol] 92.0 mg/dL Invalid Interpretation Code [employer] HbA1c (Bld) [Mass fraction] 5.30 % Invalid Interpretation Code [employer] Potassium [Moles/Vol] 3.90 mmol/L Invalid Interpretation Code [employer] Sodium [Moles/Vol] 139.0 mmol/L Invalid Interpretation Code [employer] Urea nitrogen [Mass/Vol] 7.0 mg/dL Invalid Interpretation Code [employer] Otheron 04-06-2019 Calcidiol [Mass/Vol] 5.5 L Invalid Interpretation Code [employer] Erythrocyte distribution width (RBC) [Ratio] 13.40 % Invalid Interpretation Code [employer] MCHC (RBC) [Mass/Vol] 33.70 g/dL Invalid Interpretation Code [employer] ls Invalid Interpretation Code [employer] Thyroidon 04-06-2019 TSH Qn 4.767 H Invalid Interpretation Code [employer] Other 05-21-2018 jls Invalid Interpretation Code [employer] Thyroidon 05-21-2018 T4 [Mass/Vol] 7.7 ug/dL Invalid Interpretation Code [employer] TSH Qn 5.39 H Invalid Interpretation Code [employer] Otheron 05-21-2017 ls Invalid Interpretation Code [employer] Thyroidon 05-21-2017 T4 [Mass/Vol] 8.5 ug/dL Invalid Interpretation Code [employer] TSH Qn 3.58 m[IU]/L Invalid Interpretation Code [employer] Otheron 05-21-2016 ls Invalid Interpretation Code [employer] Thyroidon 05-21-2016 Free T4 [Mass/Vol] 0.77 ng/dL Invalid Interpretation Code [employer] TSH Qn 5.90 H Invalid Interpretation Code [employer] Otheron 05-18-2015 RM Invalid Interpretation Code [employer] Thyroidon 05-18-2015 T4 [Mass/Vol] 7.40 ug/dL Invalid Interpretation Code [employer] TSH Qn 2.880 m[IU]/L Invalid Interpretation Code [employer] [facility] Vital Signs Date Time Vital Sign Value Performing Clinician Facility 05-08-2025 09:58-0400 Body height 162.56 cm Iker Maria MD Work Phone: [facility] 05-08-2025 09:58-0400 Body mass index (BMI) [Ratio] 48.4 kg/m2 Iker Maria MD Work Phone: [facility] 05-08-2025 09:58-0400 Body temperature 98.1 [degF] Iker Maria MD Work Phone: [facility] 05-08-2025 09:58-0400 Body weight 128.02 kg Iker Maria MD Work Phone: [facility] 05-08-2025 09:58-0400 Diastolic blood pressure 80 mm[Hg] Iker Maria MD Work Phone: [facility] 05-08-2025 09:58-0400 Heart rate 71 /min Iker Maria MD Work Phone: [facility] 05-08-2025 09:58-0400 Respiratory rate 18 /min Iker Maria MD Work Phone: [facility] 05-08-2025 09:58-0400 SaO2% (BldA) [Mass fraction] 97 % Iker Maria MD Work Phone: [facility] 05-08-2025 09:58-0400 Systolic blood pressure 123 mm[Hg] Iker Maria MD Work Phone: [facility] 12-14-2024 09:16-0400 Body mass index (BMI) [Ratio] 49.01 kg/m2 Nikki Snow DO Work Phone: [facility] 12-14-2024 09:16-0400 Body weight 129.5 kg Nikki Edy DO Work Phone: [facility] 12-14-2024 09:16-0400 Diastolic blood pressure 90 mm[Hg] Nikki Edy DO Work Phone: [facility] 12-14-2024 09:16-0400 Systolic blood pressure 122 mm[Hg] Nikki Edy DO Work Phone: [facility] 10-13-2024 09:49-0500 Body height 162.6 cm Iker Maria MD Work Phone: [facility] 10-13-2024 09:49-0500 Body mass index (BMI) [Ratio] 48.75 kg/m2 Iker Maria MD Work Phone: [facility] 10-13-2024 09:49-0500 Body temperature 97.11 [degF] Iker Maria MD Work Phone: [facility] 10-13-2024 09:49-0500 Body weight 128.82 kg Iker Maria MD Work Phone: [facility] 10-13-2024 09:49-0500 Diastolic blood pressure 76 mm[Hg] Iker Maria MD Work Phone: [facility] 10-13-2024 09:49-0500 Heart rate 104 /min Iker Maria MD Work Phone: [facility] 10-13-2024 09:49-0500 Respiratory rate 22 /min Iker Maria MD Work Phone: [facility] 10-13-2024 09:49-0500 SaO2% (BldA) [Mass fraction] 96 % Iker Maria MD Work Phone: [facility] 10-13-2024 09:49-0500 Systolic blood pressure 130 mm[Hg] Iker Maria MD Work Phone: [facility] 09-01-2024 10:01-0500 Body height 162.6 cm Iker Maria MD Work Phone: [facility] 09-01-2024 10:01-0500 Body mass index (BMI) [Ratio] 50.12 kg/m2 Iker Maria MD Work Phone: [facility] 09-01-2024 10:01-0500 Body temperature 97.3 [degF] Iker Maria MD Work Phone: [facility] 09-01-2024 10:01-0500 Body weight 132.45 kg Iker Maria MD Work Phone: [facility] 09-01-2024 10:01-0500 Diastolic blood pressure 68 mm[Hg] Iker Maria MD Work Phone: [facility] 09-01-2024 10:01-0500 Heart rate 97 /min Iker Maria MD Work Phone: [facility] 09-01-2024 10:01-0500 Respiratory rate 20 /min Iker Maria MD Work Phone: [facility] 09-01-2024 10:01-0500 SaO2% (BldA) [Mass fraction] 97 % Iker Maria MD Work Phone: [facility] 09-01-2024 10:01-0500 Systolic blood pressure 130 mm[Hg] Iker Maria MD Work Phone: [facility] 06-04-2024 11:35-0400 Body weight 131.09 kg [employer] 06-04-2024 11:35-0400 Diastolic blood pressure 78 mm[Hg] [employer] 06-04-2024 11:35-0400 Heart rate 74 /min [employer] 06-04-2024 11:35-0400 Systolic blood pressure 120 mm[Hg] [employer] 05-27-2023 10:12-0400 Body height 163.83 cm [employer] 05-27-2023 10:12-0400 Body mass index (BMI) [Ratio] 49.18 kg/m2 [employer] 05-27-2023 10:12-0400 Body surface area Derived from formula 2.45 m2 [employer] 05-27-2023 10:12-0400 Body weight 132 kg [employer] 05-27-2023 10:12-0400 Diastolic blood pressure 84 mm[Hg] [employer] 05-27-2023 10:12-0400 Heart rate 84 /min [employer] 05-27-2023 10:12-0400 Systolic blood pressure 142 mm[Hg] [employer] 05-29-2022 12:17-0400 Body height 163.83 cm [employer] 05-29-2022 12:17-0400 Body mass index (BMI) [Ratio] 47.91 kg/m2 [employer] 05-29-2022 12:17-0400 Body surface area Derived from formula 2.42 m2 [employer] 05-29-2022 12:17-0400 Body weight 128.6 kg [employer] 05-29-2022 12:17-0400 Diastolic blood pressure 78 mm[Hg] [employer] 05-29-2022 12:17-0400 Heart rate 78 /min Gemma Michael [employer] 05-29-2022 12:17-0400 Systolic blood pressure 118 mm[Hg] Gemma Michael [employer] 01-13-2022 15:10-0400 Body height 162.56 cm Jake Ny Other [employer] Other 01-13-2022 15:10-0400 Body mass index (BMI) [Ratio] 49.77 kg/m2 Jake Ny Other [employer] Other 01-13-2022 15:10-0400 Body temperature 99.3 [degF] Jake Ny Other [employer] Other 01-13-2022 15:10-0400 Body weight 131.54 kg Jake Ny Other [employer] Other 01-13-2022 15:10-0400 Diastolic blood pressure 79 mm[Hg] Jake Ny Other [employer] Other 01-13-2022 15:10-0400 SaO2% (BldA) [Mass fraction] 96 % Jake Ny Other [employer] Other 01-13-2022 15:10-0400 Systolic blood pressure 112 mm[Hg] Jake Ny Other [employer] Other 10-03-2021 19:50-0500 Body height 162.56 cm Lor Glover Other [employer] Other 10-03-2021 19:50-0500 Body mass index (BMI) [Ratio] 49.77 kg/m2 Lor Glover Other [employer] Other 10-03-2021 19:50-0500 Body temperature 97.8 [degF] Lor Glover Other [employer] Other 10-03-2021 19:50-0500 Body weight 131.54 kg Lor Belen Other [employer] Other 10-03-2021 19:50-0500 Diastolic blood pressure 92 mm[Hg] Lor Belen Other [employer] Other 10-03-2021 19:50-0500 Respiratory rate 18 /min Lor Tamezmond Other [employer] Other 10-03-2021 19:50-0500 SaO2% (BldA) [Mass fraction] 100 % Lor Glover Other [employer] Other 10-03-2021 19:50-0500 Systolic blood pressure 131 mm[Hg] Lor Glover Other [employer] Other 05-31-2021 12:37-0400 Body height 163.83 cm [employer] 05-31-2021 12:37-0400 Body mass index (BMI) [Ratio] 49.52 kg/m2 [employer] 05-31-2021 12:37-0400 Body surface area Derived from formula 2.46 m2 [employer] 05-31-2021 12:37-0400 Body weight 132.9 kg Gemma [email or web address] 05-31-2021 12:37-0400 Diastolic blood pressure 78 mm[Hg] Gemma Michael [employer] 05-31-2021 12:37-0400 Heart rate 72 /min Gemma Michael [employer] 05-31-2021 12:37-0400 Systolic blood pressure 124 mm[Hg] Gemma Michael [employer] 06-02-2020 10:50-0400 BMI (Body Mass Index) 47.81 kg/m2 Nate Aaron [employer] 06-02-2020 10:50-0400 Body weight 130.32 kg Nate Aaron [employer] 06-02-2020 10:50-0400 BP Diastolic 70 mm[Hg] Nate Aaron [employer] 06-02-2020 10:50-0400 BP Systolic 130 mm[Hg] Nate Aaron [employer] 06-02-2020 10:50-0400 BSA (Body Surface Area) 2.44 m2 Nate [employer] 06-02-2020 10:50-0400 Height 165.1 cm Nate Aaron [employer] 06-02-2020 10:50-0400 Pulse (Heart Rate) 72 /min Nate [employer] [facility] [employer] 06-01-2019 16:10-0400 BMI (Body Mass Index) 49.51 kg/m2 Nate Aaron [employer] 06-01-2019 16:10-0400 Body weight 134.95 kg Nate Aaron [employer] 06-01-2019 16:10-0400 BP Diastolic 78 mm[Hg] Nate [employer] 06-01-2019 16:10-0400 BP Systolic 122 mm[Hg] Nate [employer] 06-01-2019 16:10-0400 BSA (Body Surface Area) 2.49 m2 Nate [employer] 06-01-2019 16:10-0400 Height 165.1 cm Nate Aaron [employer] 06-01-2019 16:10-0400 Pulse (Heart Rate) 84 /min Nate [employer] 05-29-2018 15:10-0400 BMI (Body Mass Index) 49.59 kg/m2 Nate Aaron [employer] 05-29-2018 15:10-0400 Body weight 135.17 kg Nate [employer] 05-29-2018 15:10-0400 BP Diastolic 74 mm[Hg] Nate [employer] 05-29-2018 15:10-0400 BP Systolic 126 mm[Hg] Nate [employer] 05-29-2018 15:10-0400 BSA (Body Surface Area) 2.49 m2 Nate [employer] 05-29-2018 15:10-0400 Height 165.1 cm Nate [employer] 05-29-2018 15:10-0400 Pulse (Heart Rate) 72 /min Nate [employer] 05-29-2017 13:34-0400 BMI (Body Mass Index) 52.05 kg/m2 Nate Rubio [employer] 05-29-2017 13:34-0400 Body weight 139.71 kg Nate Rubio [facility] [employer] 05-29-2017 13:34-0400 BP Diastolic 84 mm[Hg] Nate [facility] 05-29-2017 13:34-0400 BP Systolic 128 mm[Hg] Nate Aaron [employer] 05-29-2017 13:34-0400 BSA (Body Surface Area) 2.52 m2 Nate Aaron [employer] 05-29-2017 13:34-0400 Height 163.83 cm Nate Aaron [employer] 05-29-2017 13:34-0400 Pulse (Heart Rate) 76 /min Nate [employer] 05-30-2016 13:34-0400 BMI (Body Mass Index) 50.22 kg/m2 Nate Aaron [employer] 05-30-2016 13:34-0400 Body weight 135.85 kg Nate Aaron [employer] 05-30-2016 13:34-0400 BP Diastolic 78 mm[Hg] Nate Aaron [employer] 05-30-2016 13:34-0400 BP Systolic 122 mm[Hg] Nate [employer] 05-30-2016 13:34-0400 BSA (Body Surface Area) 2.49 m2 Nate [employer] 05-30-2016 13:34-0400 Height 164.47 cm [employer]Zael[employer] 05-30-2016 13:34-0400 Pulse (Heart Rate) 76 /min Nate [employer] 05-26-2015 14:18-0400 BMI (Body Mass Index) 49.69 kg/m2 Nate [employer] 05-26-2015 14:18-0400 Body weight 131.32 kg Nate Rubio [employer] 05-26-2015 14:18-0400 BP Diastolic 82 mm[Hg] Nate [facility] 05-26-2015 14:18-0400 BP Systolic 112 mm[Hg] Nate [facility] 05-26-2015 14:18-0400 BSA (Body Surface Area) 2.44 m2 Nate [employer] 05-26-2015 14:18-0400 Height 162.56 cm Nate [employer] 05-26-2015 14:18-0400 Pulse (Heart Rate) 64 /min Nate [employer] 03-19-2014 10:26-0400 BMI (Body Mass Index) 44.03 kg/m2 Nate [facility] 03-19-2014 10:26-0400 Body weight 116.35 kg Nate [facility] 03-19-2014 10:26-0400 BP Diastolic 60 mm[Hg] Nate [facility] 03-19-2014 10:26-0400 BP Systolic 112 mm[Hg] Nate [employer] 03-19-2014 10:26-0400 BSA (Body Surface Area) 2.29 m2 Nate Aaron [employer] 03-19-2014 10:26040 Height 162.56 cm Nate [employer] 03-19-2014 10:26-0400 Pulse (Heart Rate) 70 /min Nate [employer] 01-14-2013 08:57-0400 BMI (Body Mass Index) 44.62 kg/m2 Nate [employer] 01-14-2013 08:57-0400 Body weight 119.75 kg Nate Aaron [employer] 01-14-2013 08:57-0400 BP Diastolic 76 mm[Hg] [employer]Zael[employer] 01-14-2013 08:57-0400 BP Systolic 116 mm[Hg] Nate [employer] 01-14-2013 08:57-0400 BSA (Body Surface Area) 2.33 m2 Nate Aaron [employer] 01-14-2013 08:57-0400 Height 163.83 cm NateZaelab 01-14-2013 08:57-0400 Pulse (Heart Rate) 68 /min Nate [employer] Encounters Encounter Date Encounter Type Care Provider Facility Start: 05-08-2025 End: 05-08-2025 ambulatory Iker Maria MD Work Phone: [facility] Work Phone: Start: 05-08-2025 End: 05-08-2025 Patient encounter procedure Indira Millan [facility] [employer] [facility] Work Phone: Start: 12-14-2024 End: 12-14-2024 Bamboo flowsheet Nikki Edy DO Work Phone: [facility] Start: 12-14-2024 End: 12-16-2024 Bamboo flowsheet Nikki Edy DO Work Phone: [facility] Start: 12-14-2024 End: 12-16-2024 Clinisync Result Encounter Nikki Edy DO Work Phone: [facility] External Department Unsolicited Start: 12-14-2024 End: 12-14-2024 Patient encounter procedure Nikki Edy DO Work Phone: [facility] Healthcare Start: 12-14-2024 End: 12-14-2024 Periodic preventive med est patient 18-39 yrs Nikki Edy DO Work Phone: [facility] Comment on above: Well woman exam with routine gynecological exam; Encounter for screening mammogram for malignant neoplasm of breast; Family history of breast cancer; control counseling; Skin irritation; Yeast infection Start: 12-14-2024 End: 12-14-2024 ambulatory NIKKI EDY Not Available Start: 10-13-2024 End: 10-13-2024 Bamboo flowsheet Iker Maria MD Work Phone: [facility] Start: 10-13-2024 End: 10-13-2024 Bamboo flowsheet Iker Maria MD Work Phone: [facility] Start: 10-13-2024 End: 10-13-2024 Office outpatient visit 25 minutes Iker Maria MD Work Phone: [facility] Comment on above: Generalized anxiety disorder (CMS/HCC) (Primary Dx); Grief reaction (CMS/HCC); Primary insomnia; Migraine without aura and without status migrainosus, not intractable (CMS/HCC); Seasonal allergic rhinitis due to pollen Start: 10-13-2024 End: 10-13-2024 ambulatory IKER MARIA Not Available Start: 09-01-2024 End: 09-01-2024 Bamboo flowsheet Iker Maria MD Work Phone: [facility] Start: 09-01-2024 End: 09-01-2024 Bamboo flowsheet Iker Maria MD Work Phone: [facility] Start: 09-01-2024 End: 09-01-2024 Office outpatient visit 15 minutes Iker Maria MD Work Phone: [facility] Comment on above: Acute non-recurrent pansinusitis (Primary Dx); Acute nonsuppurative otitis media, left; Class 3 severe obesity due to excess calories without serious comorbidity with body mass index (BMI) of 50.0 to 59.9 in adult ([facility]) Start: 09-01-2024 End: 09-01-2024 ambulatory IKER MARIA Not Available Start: 06-04-2024 Office outpatient vi sit 25 minutes Gemma S Schworm Other [facility] Office Start: 05-26-2024 End: 05-26-2024 Clinisync Result Encounter Generic External Data Provider [facility] External Department Unsolicited Start: 05-26-2024 End: 05-26-2024 Clinisync Result Encounter Generic External Data Provider [facility] External Department Unsolicited Start: 04-13-2024 End: 04-13-2024 ambulatory IKER MARIA Not Available Start: 01-22-2024 Patient encounter procedure Generic Provider [facility] Start: 01-22-2024 End: 01-22-2024 ambulatory IKER MARIA Not Available Start: 01-15-2024 End: 01-15-2024 ambulatory IKER MARIA Not Available Start: 05-27-2023 Office outpatient vi sit 25 minutes Gemma S Schworm Other [facility] Office Start: 12-25-2022 End: 12-26-[address] NIKKI SNOW . Facility:[facility] Start: 11-26-2022 End: 11-26-[address] NIKKI SNOW . Facility:[facility] Start: 09-07-2022 End: 09-08-[address] DOCTOR PLATA Facility:[facility] Start: 05-29-2022 Office outpatient vi sit 25 minutes Gemma S Schworm Other [facility] Office Start: 05-21-2022 Encounter for genera l adult medical examination without abnormal findings DR IKER MARIA [facility] Start: 05-18-2022 End: 05-19-[address] DOCTOR PLATA Facility:[facility] Start: 05-18-2022 End: 05-19-2022 Encounter for general adult medical examination without abnormal findings DR IKER MARIA Facility:[facility] Start: 01-13-2022 End: 01-13-2022 ambulatory KEZIA Misty [employer] Other Start: 01-13-2022 Patient encounter procedure Jake Ny [facility] [address] Start: 10-03-2021 End: 10-03-2021 ambulatory Lor Glover Other [employer] Other Start: 10-03-2021 Office outpatient vi sit 15 minutes Lor Glover [facility] Start: 05-31-2021 Office outpatient vi sit 25 minutes Gemma S Schworm Other [facility] Office Start: 06-02-2020 Office outpatient vi sit 25 minutes Gemma S Schworm Other [facility] Office Start: 06-01-2019 Office outpatient vi sit 25 minutes Gemma S Schworm Other [facility] Office Start: 05-29-2018 Office outpatient vi sit 25 minutes Gemma S Schworm Other [facility] Office Start: 05-29-2017 Office outpatient vi sit 25 minutes Gemma S Schworm Other [facility] Office Start: 05-30-2016 Office outpatient vi sit 25 minutes Gemma S Schworm Other [facility] Office Start: 05-26-2015 Office outpatient vi sit 25 minutes Gemma S Schworm Other [facility] Office Start: 03-19-2014 Office Services Nate Caceres vicky Other [facility] Office Start: 01-14-2013 Office Services Nate Caceres vicky Other [facility] Office Procedures Date Procedure Procedure Detail Performing Clinician Start: 12-14-2024 IGP,APTIMA HPV,AGE GDLN Generic External Data Provider Start: 05-27-2024 Thyroid stimulating hormone measurement Gemma Schworm Start: 05-27-2024 Thyroxine measurement W endi Schworm Start: 05-26-2024 ALL THYROID STIM HORMONE Generic External Data Provider Start: 05-26-2024 ALL THYROXINE (T4) Gene jolie External Data Provider Start: 12-10-2023 Microscopic observat ion [Identifier] in Cervix by Cyto stain [employer] Work Phone: Start: 12-10-2023 Cytp cerv/vag auto t hin layer prep mnl screen [employer] Work Phone: Start: 08-27-2023 Thyroid stimulating hormone measurement Gemma Schworm Start: 08-27-2023 Thyroxine measurement W endi Schworm Start: 05-29-2023 Thyroid stimulating hormone measurement Gemma Schworm Start: 05-29-2023 Thyroxine measurement W endi Schworm Start: 05-27-2023 Most recent diastoli c blood pressure 80-89 mm hg Gemma Schworm Start: 05-27-2023 Most recent systolic blood pres>/equal 140 mm hg Gemma Schworm Start: 11-26-2022 Microscopic observat ion [Identifier] in Cervix by Cyto stain Generic Provider Start: 2022 Thyroid stimulating hormone measurement Gemma Schworm Start: 2022 Thyroxine measurement W endi Schworm Start: 05-31-2022 Thyroid stimulating hormone measurement Gemma Schworm Start: 05-31-2022 Thyroxine measurement W endi Schworm Start: 08-31-2021 Thyroid stimulating hormone measurement Gemma Schworm Start: 08-31-2021 Thyroxine measurement W endi Schworm Start: 05-31-2021 Docrev cur meds by e lig clin Gemma Schworm Start: 05-24-2021 Thyroid stimulating hormone measurement Gemma Schworm Start: 05-24-2021 Thyroxine measurement W endi Schworm Start: 06-02-2020 Doc meds verified w/ pt or re Nate Rubio Start: 06-01-2020 Assay of thyroid stimulating hormone tsh Nate Rubio Start: 06-01-2020 Assay of thyroxine total Nate Rubio Start: 06-01-2020 Thyroid stimulating hormone measurement Gemma Schworm Start: 06-01-2020 Thyroxine measurement W endi Schworm Start: 05-29-2019 Assay of thyroid stimulating hormone tsh Nate Rubio Start: 05-29-2019 Assay of thyroxine total Nate Rubio Start: 05-29-2019 Thyroid stimulating hormone measurement Gemma Schworm Start: 05-29-2019 Thyroxine measurement W endi Schworm Start: 05-29-2018 Assay of thyroid stimulating hormone tsh Nate Rubio Start: 05-29-2018 Assay of thyroxine total Nate Rubio Start: 05-29-2018 Doc meds verified w/ pt or re Nateleighton Rubio Start: 05-29-2018 Thyroid stimulating hormone measurement Gemma Schworm Start: 05-29-2018 Thyroxine measurement W endi Schworm Start: 05-30-2017 Assay of thyroid stimulating hormone tsh Nate Rubio Start: 05-30-2017 Assay of thyroxine total Nate Rubio Start: 05-30-2017 Thyroid stimulating hormone measurement Gemma Schworm Start: 05-30-2017 Thyroxine measurement W endi Schworm Start: 05-29-2017 Doc meds verified w/ pt or re Nate Rubio Start: 05-26-2016 Assay of thyroid stimulating hormone tsh Nate Rubio Start: 05-26-2016 Assay of thyroxine total Nate Rubio Start: 05-26-2016 Thyroid stimulating hormone measurement Gemma Schworm Start: 05-26-2016 Thyroxine measurement W endi Schworm Start: 03-19-2015 Assay of thyroid stimulating hormone tsh Nateleighton Rubio Start: 03-19-2015 Assay of thyroxine total Nate Rubio Start: 03-19-2015 Thyroid stimulating hormone measurement Gemma Schworm Start: 03-19-2015 Total thyroxine measurement Gemma Schworm Start: 03-12-2014 Assay of thyroid stimulating hormone tsh Nate Rubio Start: 03-12-2014 Assay of thyroxine total Nate Rubio Start: 03-12-2014 Thyroid stimulating hormone measurement Gemma Schworm Start: 03-12-2014 Total thyroxine measurement Gemma Schworm Plan of Treatment Date Care Activity Detail Author Start: 12-20-2025 End: 12-20-2025 Patient encounter procedure 12/20/2025 11:00 AM EDT Office Visit [facility] [address] [place] [id number] Nikki Snow DO [address] [place] [address] [facility] Start: 11-26-2025 Screening for malign ant neoplasm of cervix [facility] Start: 06-04-2025 Assay of thyroid stimulating hormone tsh Thyroid stimulating hormone (TSH) [employer] Start: 06-04-2025 Assay of thyroxine total T4 [facility] [employer] Start: 04-26-2025 Influenza vaccination Influenz a Vaccine (Season Ended) [facility] Start: 01-21-2025 End: 01-21-2025 Patient encounter procedure 01/21/2025 2:00 PM EDT Office Visit [facility] [address] [place] [phone] Iker Maria MD [address] [place] [address] [facility] Start: 12-14-2024 End: 02-13-2026 MG Breast - bilateral Screening Bilateral screening mammogram Imaging Routine Encounter for screening mammogram for malignant neoplasm of breast Family history of breast cancer Expected: 12/14/2024 (Approximate), Expires: 02/13/2026 [facility] Comment on above: Expected: 12/14/2024 (Approximate), Expires: 02/13/2026 Start: 12-14-2024 End: 12-14-2024 Patient encounter procedure [facility] Comment on above: Arrived Start: 12-09-2024 Screening for malign ant neoplasm of cervix [facility] Start: 11-19-2024 End: 11-19-2024 Patient encounter procedure 11/19/2024 2:15 PM EDT Office Visit [facility] [address] [place] [phone] Iker Maria MD [address] [place] [phone] [facility] Start: 10-13-2024 End: 10-13-2024 Patient encounter procedure [facility] Comment on above: Arrived Start: 10-12-2024 End: 10-12-2024 Patient encounter procedure 10/12/2024 9:15 AM EST Office Visit [facility] [address] [place] [address] Iker Maria MD [address] [place] [phone] [facility] Start: 09-01-2024 End: 09-01-2024 Patient encounter procedure 09/01/2024 10:00 AM EST Office Visit [facility] [address] [place] [phone] Iker Maria MD [address] [place] [phone] Arrived [facility] Comment on above: Arrived Start: 05-27-2024 Assay of thyroid stimulating hormone tsh TSH [employer] [facility] Start: 05-27-2024 Assay of thyroxine total T4 [employer] [facility] Start: 04-26-2024 Influenza vaccination Influenza Vacc ine (#1) [facility] Start: 08-27-2023 Assay of thyroid stimulating hormone tsh TSH [employer] [facility] Start: 08-27-2023 Assay of thyroxine total T4 [employer] [facility] Start: 05-29-2023 Assay of thyroid stimulating hormone tsh TSH [employer] [facility] Start: 05-29-2023 Assay of thyroxine total T4 [employer] [facility] Start: 2022 Assay of thyroid stimulating hormone tsh TSH [employer] Start: 2022 Assay of thyroxine total T4 [employer] Start: 05-31-2022 Assay of thyroxine total T4 [employer] Start: 05-31-2022 Thyroid stimulating hormone measurement ASSAY THYROID STIM HORMONE [facility] [employer] Start: 06-02-2020 Iiv4 vacc split viru s 0.5 ml dos for im use Flu vaccine-non medicare [facility] [employer] Start: 06-02-2020 Im adm prq id subq/i m njxs 1 vaccine Administration of single vaccine [employer] Start: 06-01-2020 T4 [Mass/Vol] T4 [employer] Start: 06-01-2020 TSH Qn TSH [employer] Start: 05-29-2019 T4 [Mass/Vol] T4 [employer] Start: 05-29-2019 TSH Qn TSH [employer] Start: 2016 Screening for malign ant neoplasm of cervix HPV/Cotest [facility] Cytology Cervical or vaginal smear or scraping study Pap Smear Pathology and Cytology Routine Well woman exam with routine gynecological exam Ordered: 12/14/2024 [facility] Work Phone: Comment on above: Ordered: 12/14/2024 Human papilloma viru s DNA [Presence] in Unspecified specimen by Probe with amplification HPV DNA probe, amplified Microbiology Routine Well woman exam with routine gynecological exam Ordered: 12/14/2024 [facility] Comment on above: Ordered: 12/14/2024 Immunizations Immunization Date Immunization Notes Care Provider Fa cility 05-29-2022 influenza virus vacc ine, unspecified formulation; Translations: [Influenza virus vaccine, quadrivalent (ccIIV4), derived from cell cultures, subunit, preservative and antibiotic free, 0.5 mL dosage, for intramuscular use] [employer] 05-29-2022 influenza, injectabl e, quadrivalent, contains preservative [employer] 05-29-2022 IMMUNIZATION ADMIN; Translations: [IMMUNIZATION ADMIN] [employer] 07-01-2021 influenza virus vacc ine, unspecified formulation [facility] 06-02-2020 influenza, injectabl e, quadrivalent, contains preservative; Translations: [FLU VACC 4 LUCRETIA 3 YRS PLUS IM] [employer] 06-02-2020 IMMUNIZATION ADMIN; Translations: [IMMUNIZATION ADMIN] [employer] 06-01-2019 influenza, injectabl e, quadrivalent, contains preservative; Translations: [FLU VACC 4 LUCRETIA 3 YRS PLUS IM] [employer] 06-01-2019 influenza, seasonal, injectable [employer] 06-01-2019 IMMUNIZATION ADMIN; Translations: [IMMUNIZATION ADMIN] [employer] 05-29-2018 influenza, seasonal, injectable; Translations: [FLU VACCINE 3 YRS & > IM] [employer] 05-29-2018 IMMUNIZATION ADMIN; Translations: [IMMUNIZATION ADMIN] [employer] 05-25-2016 influenza, seasonal, injectable [employer] 06-04-2000 tetanus and diphther ia toxoids, adsorbed, preservative free, for adult use (2 Lf of tetanus toxoid and 2 Lf of diphtheria toxoid) Nate Joanne [facility] Payers Date Payer Category Payer Private Health Insurance [employer] [id number] 2022 Unknown [employer] [id number] 2022-Present [phone] [address] [address] [place] [address] [id number] 1986 Unknown [id number] [id number]. 2.593 1986 Unknown [id number] 2.16.840.1.796659.3.579. 2.593 1986 Unknown [id number] 2.16.840.1.616020.3.579. 2.593 1986 Unknown [id number] 2.16.840.1.305548.3.579. 2.593 1986 Unknown [id number] 2.16.840.1.296345.3.579. 2.593 1986 Unknown [id number] 2.16.840.1.167372.3.579. 2.593 1986 Unknown [id number] 2.16.840.1.577552.3.579. 2.1259 1986 Unknown [id number] 2.16.840.1.408767.3.579. 2.1259 1986 Unknown [id number] 2.16.840.1.225891.3.579. 2.1258 1986 Unknown [id number] 2.16.840.1.702703.3.579. 2.1258 1986 Unknown [id number] 2.16.840.1.298733.3.579. 2.9 1986 Unknown [id number] 2.16.840.1.837089.3.579. 2.1259 1959 Unknown [id number] 2.16.840.1.537628.3.441 1959 Unknown [id number] Unknown [id number] Social History Date Type Detail Facility Start: 11-05-2023 End: 05-08-2025 Never smoker [facility] Start: Alcohol [facility] Start: Caffeine [facility] Start: 11-04-2023 End: 11-05-2023 Sex Assigned At [facility] Start: 11-05-2023 Tobacco use and exposure Smoke less tobacco non-user [facility] Start: 11-04-2023 End: 11-05-2023 History of Social function [facility] Do you belong to any clubs or organizations such as zoroastrianism groups, unions, fraternal or athletic groups, or school groups? Patient declined [facility] Are you now , , , , never or living with a partner? [facility] Do you feel stress - tense, restless, nervous, or anxious, or unable to sleep at night because your mind is troubled all the time - these days [OSQ] Rather much [facility] Start: 1985 Sex assigned at Not on file [facility] Sex Female (finding) [facility] Start: 1985 Sex Assigned At Female F [facility] Clinical Notes 10-03-2021 to 12-14-2024 Janie Steinberg LPN - 12/14/2024 9:00 AM Joni Maria MD - 10/13/2024 10:25 AM Jaciel Maria MD - 10/13/2024 10:25 AM Jaciel Maria MD - 10/13/2024 10:25 AM EST Note Date & Type Note Facility 12-14-2024 History of Presen t illness Narrative Reason for Appointment: Patient ID: Jeny Stevenson is a 39 y.o. female who presents for Well Women Visit Patient presents today for Annual Exam. MEDICATIONS Current Outpatient Medications Medication Instructions clobetasol (Temovate) 0.05 % cream 1 application , Topical, 2 times daily, Apply to affected area twice a day fexofenadine (CAMILLE ALLERGY) 180 mg, Daily fluconazole (DIFLUCAN) 150 mg, Oral, Every 72 hours levothyroxine (Synthroid, Levoxyl) 175 MCG tablet 1 tablet, Daily before breakfast LORazepam (ATIVAN) 0.5 mg, Oral, 3 times daily PRN montelukast (SINGULAIR) 10 mg, Oral, Daily mupirocin (Bactroban) 2 % ointment Topical, 3 times daily norethindrone (MICRONOR) 0.35 mg, Oral, Daily sertraline (ZOLOFT) 200 mg, Daily RT SUMAtriptan (IMITREX) 25 mg, Oral, Once as needed, May repeat dose once in 2 hours if no relief. Do not exceed 2 doses in 24 hours. traZODone (DESYREL) 50 mg, Oral, Nightly ALLERGIES Allergies Allergen Reactions Other Hives Thyroid medication Methimazole Hives Metronidazole Hives Amoxicillin Rash Rash only if over 30 days, okay for 10 days PROBLEMS Active Ambulatory Problems Diagnosis Date Noted Acne vulgaris 11/05/2023 Migraine without aura and without status migrainosus, not intractable (CMS/HCC) 11/05/2023 Factor V Leiden ([facility]) 11/05/2023 Generalized anxiety disorder ([facility]) 11/05/2023 Hidradenitis suppurativa 11/05/2023 Hyperthyroidism ([facility]) 11/05/2023 Primary insomnia 11/05/2023 Paranoia ([facility]) 11/05/2023 Vitamin D deficiency 11/05/2023 Seasonal allergic rhinitis due to pollen 01/15/2024 Bruxism, sleep-related 01/15/2024 Idiopathic urticaria 01/22/2024 Annual physical exam 01/22/2024 Class 3 severe obesity due to excess calories without serious comorbidity with body mass index (BMI) of 50.0 to 59.9 in adult 04/13/2024 Grief reaction 10/13/2024 Resolved Ambulatory Problems Diagnosis Date Noted Acute suppurative otitis media of right ear 11/05/2023 Acute non-recurrent pansinusitis 09/01/2024 Acute nonsuppurative otitis media, left 09/01/2024 Past Medical History: Diagnosis Date At standard risk for fall Chronic migraine without aura without status migrainosus, not intractable ([facility]) Family history of breast cancer in female SARAI (generalized anxiety disorder) ([facility]) Insomnia, persistent Morbid obesity with body mass index (BMI) of 40.0 to 49.9 ([facility]) HISTORY PAST MEDICAL HISTORY SOCIAL HISTORY Past Medical History: Diagnosis Date Acne vulgaris At standard risk for fall Chronic migraine without aura without status migrainosus, not intractable ([facility]) Factor V Leiden ([facility]) Family history of breast cancer in female SARAI (generalized anxiety disorder) ([facility]) Hidradenitis suppurativa Hyperthyroidism ([facility]) Insomnia, persistent Morbid obesity with body mass index (BMI) of 40.0 to 49.9 ([facility]) Paranoia ([facility]) Seasonal allergic rhinitis due to pollen Vitamin D deficiency Social History Tobacco Use Smoking status: Never Smokeless tobacco: Never Substance Use Topics Alcohol use: Not on file Drug use: Not on file FAMILY HISTORY Family History Problem Relation Name Age of Onset Depression Mother Breast cancer Mother Lung cancer Mother No Known Problems Father Hypertension Brother Miscarriages / Stillbirths Maternal Grandmother Lung cancer Maternal Grandfather Lung cancer Other SURGICAL HISTORY Past Surgical History: Procedure Laterality Date APPENDECTOMY SECTION, LOW TRANSVERSE MYRINGOTOMY W/ TUBES Bilateral 4-5 surgeries REVIEW OF SYSTEMS Review of Systems: Review of Systems Constitutional: Negative. HENT: Negative. Eyes: Negative. Respiratory: Negative. Cardiovascular: Negative. Gastrointestinal: Negative. Genitourinary: Negative. Musculoskeletal: Negative. Skin: Negative. Neurological: Negative. All other systems reviewed and are negative. Hematological: Negative. Endocrine: Negative. Allergic/Immunologic: Negative. OBJECTIVE Objective: Physical Exam Constitutional: Appearance: Normal appearance. She is well-developed. Genitourinary: Vulva normal. Breasts: Breasts are soft. Right: Normal. Left: Normal. Cardiovascular: Rate and Rhythm: Normal rate and regular rhythm. Pulmonary: Effort: Pulmonary effort is normal. Breath sounds: Normal breath sounds. Abdominal: General: Bowel sounds are normal. There is no distension. Palpations: Abdomen is soft. Tenderness: There is no abdominal tenderness. There is no guarding or rebound. Musculoskeletal: General: No swelling. Normal range of motion. Right lower leg: No edema. Left lower leg: No edema. Neurological: Mental Status: She is alert and oriented to person, place, and time. Skin: General: Skin is warm and dry. Psychiatric: Mood and Affect: Mood normal. Behavior: Behavior normal. Vitals and nursing note reviewed. Exam conducted with a form block maker present. Vitals: Estimated body mass index is 49.01 kg/m as calculated from the following: Height as of 10/13/24: 5' 4 . Weight as of this encounter: 285 lb 8 oz. BP: 122/90 Patient's last menstrual period was 11/30/2024. ASSESSMENT & PLAN ICD-10-CM 1. Well woman exam with routine gynecological exam Z01.419 Pap Smear HPV DNA probe, amplified 2. Encounter for screening mammogram for malignant neoplasm of breast Z12.31 Bilateral screening mammogram Bilateral screening mammogram 3. Family history of breast cancer Z80.3 Bilateral screening mammogram Bilateral screening mammogram 4. control counseling Z30.09 norethindrone (Micronor) 0.35 MG tablet 5. Skin irritation R23.8 clobetasol (Temovate) 0.05 % cream 6. Yeast infection B37.9 fluconazole (Diflucan) 150 MG tablet Annual: Patient presents today for an annual exam. Patient states she is doing well and has no complaints. Pap was obtained without difficulty and patient given mammogram order to have scheduled/obtained. Patient complaints of skin irritation, possibly from stress. Patient lost her mother a few months ago to lung cancer and is coping. Sent Clobetasol for patient to use topically twice daily as needed for 1 week. Upon speculum exam patient does have yeast infection and Diflucan sent to pharmacy. Orders Placed This Encounter Procedures HPV DNA probe, amplified Bilateral screening mammogram Follow Up: Patient is to return in one year for annual unless needed otherwise. Documented by Janie Steinberg LPN on behalf of: Nikki Snow DO documented in this encounter [facility] 10-13-2024 History of Presen t illness Narrative Associated Problem(s): Seasonal allergic rhinitis due to pollen Symptoms stable and continue medication. Associated Problem(s): Primary insomnia Sleeping well with trazodone and continue. Associated Problem(s): Migraine without aura and without status migrainosus, not intractable (CMS/HCC) MCWILLIAMS stable and use imitrex PRN. Associated Problem(s): Grief reaction (CMS/HCC) Difficult to adjust to mom's and refer for counseling. Associated Problem(s): Generalized anxiety disorder (CMS/HCC) Symptoms previously controlled with zoloft and continue. Worsening anxiety and resume ativan PRN. Images from the original note were not included. Subjective Patient ID: Jeny Stevenson is a 39 y.o. female who presents for Follow-up. Follow up migraines, anxiety, insomnia, and allergies. Patient not doing well today. Mom last week from lung cancer and having a hard time adjusting. Down, sad, and crying. Not back to work and hard to be around others. Migraines controlled and about 2-3 times a month. Throbbing pain in entire head associated with photophobia, phonophobia and nausea. Using imitrex PRN and helps when needed. Anxiety slightly worse since mom . At times feels stressed out and overwhelmed. Feels nervous and worrying more. Not ovalle or irritable. Taking zoloft daily. Sleeping well with trazodone. Able to fall asleep and stay asleep. Wakes up rested in am. Allergies controlled with medication. No congestion or rhinorrhea. No MCWILLIAMS or sinus pressure. Ears not plugged or popping. Review of Systems Respiratory: Negative for cough, shortness of breath and wheezing. Cardiovascular: Negative for chest pain and palpitations. Gastrointestinal: Negative for abdominal pain, diarrhea, nausea and vomiting. Genitourinary: Negative for dysuria. Objective Physical Exam Constitutional: General: She is not in acute distress. Appearance: Normal appearance. HENT: Head: Normocephalic. Right Ear: Tympanic membrane normal. Left Ear: Tympanic membrane normal. Eyes: Extraocular Movements: Extraocular movements intact. Pupils: Pupils are equal, round, and reactive to light. Cardiovascular: Rate and Rhythm: Normal rate and regular rhythm. Heart sounds: No murmur heard. No friction rub. No gallop. Pulmonary: Effort: Pulmonary effort is normal. Breath sounds: Normal breath sounds. No wheezing, rhonchi or rales. Abdominal: General: Bowel sounds are normal. There is no distension. Palpations: Abdomen is soft. Tenderness: There is no abdominal tenderness. There is no guarding or rebound. Musculoskeletal: Cervical back: Neck supple. Right lower leg: No edema. Left lower leg: No edema. Neurological: Mental Status: She is alert. Assessment/Plan Problem List Items Addressed This Visit Migraine without aura and without status migrainosus, not intractable (CMS/HCC) MCWILLIAMS stable and use imitrex PRN. Generalized anxiety disorder (CMS/HCC) - Primary Symptoms previously controlled with zoloft and continue. Worsening anxiety and resume ativan PRN. Relevant Medications LORazepam (Ativan) 0.5 MG tablet Primary insomnia Sleeping well with trazodone and continue. Seasonal allergic rhinitis due to pollen Symptoms stable and continue medication. Grief reaction (CMS/HCC) Difficult to adjust to mom's and refer for counseling. Relevant Orders Ambulatory referral to Psychology documented in this encounter [facility] 09-01-2024 History of Presen t illness Narrative Associated Problem(s): Class 3 severe obesity due to excess calories without serious comorbidity with body mass index (BMI) of 50.0 to 59.9 in adult (CMS/HCC) Weight loss indicated Images from the original note were not included. Subjective Patient ID: Jeny Stevenson is a 39 y.o. female who presents for Sinusitis and Ear Drainage (With pain). C/o cough, congestion, and rhinorrhea x 1 week. Afebrile. Severe fatigue and no energy. Mild cough dry and nonproductive. Denies chest tightness or SOB. MCWILLIAMS and sinus pressure in forehead and cheeks along with postnasal drip. Ears plugged and popping. Pain in left ear and mild drainage. Sore throat and pain to swallow. Mild nausea. Denies recent sick contacts. Using OTC medication and mild relief. No improvement in symptoms since onset. Review of Systems Respiratory: Negative for cough, shortness of breath and wheezing. Cardiovascular: Negative for chest pain and palpitations. Gastrointestinal: Negative for abdominal pain, diarrhea, nausea and vomiting. Genitourinary: Negative for dysuria. Objective Physical Exam Constitutional: General: She is not in acute distress. Appearance: Normal appearance. HENT: Head: Normocephalic. Right Ear: Tympanic membrane normal. Left Ear: Tympanic membrane normal. Eyes: Extraocular Movements: Extraocular movements intact. Pupils: Pupils are equal, round, and reactive to light. Cardiovascular: Rate and Rhythm: Normal rate and regular rhythm. Heart sounds: No murmur heard. No friction rub. No gallop. Pulmonary: Effort: Pulmonary effort is normal. Breath sounds: Normal breath sounds. No wheezing, rhonchi or rales. Abdominal: General: Bowel sounds are normal. There is no distension. Palpations: Abdomen is soft. Tenderness: There is no abdominal tenderness. There is no guarding or rebound. Musculoskeletal: Cervical back: Neck supple. Right lower leg: No edema. Left lower leg: No edema. Neurological: Mental Status: She is alert. Assessment/Plan Problem List Items Addressed This Visit Acute non-recurrent pansinusitis - Primary Relevant Medications levoFLOXacin (Levaquin) 750 MG tablet predniSONE (Deltasone) 50 MG tablet fluconazole (Diflucan) 200 MG tablet Acute nonsuppurative otitis media, left Relevant Medications nugeyvkd-kiazvnrmu-snmjncauosjmdu (Cortisporin) 3.5-92346-4 otic suspension documented in this encounter [facility] 01-13-2022 Evaluation note Encounter Date Diagnosis Assessment Notes December, Cutaneous abscess of abdominal wall (ICD-10 - L02.211) Advised her to go to the ER due to significant pain, extension of erythema, and skin induration of abscess. [employer] Other 02-08-2022 Evaluation note* Encounter Date Diagnosis Assessment Notes Treatment Notes Treatment Clinical Notes Sep, Abscess (ICD-10 - L02.91) Sep, [...] the ER for worsening symptoms or concerns. [employer] Other Evaluation note* Diagnosis Migraine without aura and without status migrainosus, not intractable (CMS/HCC)- Primary Generalized anxiety disorder (CMS/HCC) Generalized anxiety disorder Primary insomnia Persistent disorder of initiating or maintaining sleep Seasonal allergic rhinitis due to pollen Bruxism, sleep-related Idiopathic urticaria- Primary Annual physical exam Routine general medical examination at a health care facility Migraine without aura and without status migrainosus, not intractable (CMS/HCC)- Primary Generalized anxiety disorder (CMS/HCC) Generalized anxiety disorder Primary insomnia Persistent disorder of initiating or maintaining sleep Seasonal allergic rhinitis due to pollen Folliculitis Other specified disease of hair and hair follicles Morbid obesity due to excess calories ([facility]) Body mass index (BMI) 45.0-49.9, adult ([facility]) Acute non-recurrent pansinusitis- Primary Acute nonsuppurative otitis media, left Class 3 severe obesity due to excess calories without serious comorbidity with body mass index (BMI) of 50.0 to 59.9 in adult ([facility]) documented in this encounter [facility]* Diagnosis Migraine without aura and without status migrainosus, not intractable (CMS/HCC)- Primary Generalized anxiety disorder (CMS/HCC) Generalized anxiety disorder Primary insomnia Persistent disorder of initiating or maintaining sleep Seasonal allergic rhinitis due to pollen Bruxism, sleep-related Idiopathic urticaria- Primary Annual physical exam Routine general medical examination at a health care facility Migraine without aura and without status migrainosus, not intractable ([facility]/HCC)- Primary Generalized anxiety disorder ([facility]/HCC) Generalized anxiety disorder Primary insomnia Persistent disorder of initiating or maintaining sleep Seasonal allergic rhinitis due to pollen Folliculitis Other specified disease of hair and hair follicles Morbid obesity due to excess calories ([facility]) Body mass index (BMI) 45.0-49.9, adult ([facility]) Acute non-recurrent pansinusitis- Primary Acute nonsuppurative otitis media, left Class 3 severe obesity due to excess calories without serious comorbidity with body mass index (BMI) of 50.0 to 59.9 in adult ([facility]) Generalized anxiety disorder (CMS/HCC)- Primary Generalized anxiety disorder Grief reaction ([facility]) Adjustment disorder with depressed mood Primary insomnia Persistent disorder of initiating or maintaining sleep Migraine without aura and without status migrainosus, not intractable ([facility]/HCC) Seasonal allergic rhinitis due to pollen [facility] Diagnosis Migraine without aura and without status migrainosus, not intractable (CMS/HCC)- Primary Generalized anxiety disorder (CMS/HCC) Generalized anxiety disorder Primary insomnia Persistent disorder of initiating or maintaining sleep Seasonal allergic rhinitis due to pollen Bruxism, sleep-related Idiopathic urticaria- Primary Annual physical exam Routine general medical examination at a health care facility Migraine without aura and without status migrainosus, not intractable ([facility]/HCC)- Primary Generalized anxiety disorder ([facility]/HCC) Generalized anxiety disorder Primary insomnia Persistent disorder of initiating or maintaining sleep Seasonal allergic rhinitis due to pollen Folliculitis Other specified disease of hair and hair follicles Morbid obesity due to excess calories (CMS/HCC) Body mass index (BMI) 45.0-49.9, adult (CMS/HCC) Acute non-recurrent pansinusitis- Primary Acute nonsuppurative otitis media, left Class 3 severe obesity due to excess calories without serious comorbidity with body mass index (BMI) of 50.0 to 59.9 in adult Generalized anxiety disorder (CMS/HCC)- Primary Generalized anxiety disorder Grief reaction Adjustment disorder with depressed mood Primary insomnia Persistent disorder of initiating or maintaining sleep Migraine without aura and without status migrainosus, not intractable (CMS/HCC) Seasonal allergic rhinitis due to pollen Well woman exam with routine gynecological exam Routine gynecological examination Encounter for screening mammogram for malignant neoplasm of breast Family history of breast cancer Family history of malignant neoplasm of breast control counseling Skin irritation Unspecified disorder of skin and subcutaneous tissue Yeast infection documented in this encounter [facility] noteNo assessment information availableMer[facility] Work Phone: History general Narrative - Reported* Type Description Date Medical History Hypothyroid Medical History Scleroderma Medical History seasonal allergies Surgical History 2006 Surgical History Myringotomy 1996 Surgical History Broken Left ankle 2002 Hospitalization History See past surgical hx [employer] Other Reason for referral (narrative)No reason for referral information availableMer[facility] Work Phone: Summary Purpose Family History Relationship Condition Age at Onset Recorded Date/T vivien father Chronic obstructive pulmonary disease Unk nown mother Malignant neoplasm Unknown Malignant neoplasm of breast Unknown Advance Directives Advance Directive Response Recorded Date/ Time Advance Directives No October 04, 2021 11:38am Chief Complaint and Reason for Visit Chief Complaint Admit Date Congestion May 08, 2025 9:43am Additional Source Comments INFORMATION SOURCE (unrecogn ized section and content) DATE CREATED AUTHOR 12/06/2021 [facility] DATE CREATED AUTHOR 'S ORGANIZ ATION 01/02/2023 [facility] DATE CREATED AUTHOR AUTHOR'S ORGANIZ ATION 12/14/2024 [facility] EPIC REASON FOR VISIT (unrecogniz ed section and content) Reason Comments Sinusitis Ear Drainage With pain Reason Comments Follow-up Reason Comments Well Women Visit Care Teams (unrecognized sec tion and content) Supervisor [employer] Relationship Specialty Start Date End Date Iker Maria MD [address] [place] [phone] PCP - General Family Medicine 10/08/23 Supervisor [employer] Relationship Specialty Start Date End Date Iker Maria MD [address] [place] [phone] PCP - General Family Medicine 10/08/23 Supervisor [employer] Relationship Specialty Start Date End Date Iker Maria MD [address] [place] [phone] PCP - General Family Medicine 10/08/23 Supervisor [employer] Relationship Specialty Start Date End Date Iker Maria MD [address] [place] [phone] PCP - General Family Medicine 10/08/23 Supervisor [employer] Relationship Specialty Start Date End Date Iker Maria MD [address] [place] [phone] PCP - General Family Medicine 10/08/23 Supervisor [employer] Relationship Specialty Start Date End Date Iker Maria MD [address] [place] [phone] PCP - General Family Medicine 10/08/23 Supervisor [employer] Relationship Specialty Start Date End Date Iker Maria MD [address] [place] [address] PCP - General Family Medicine 10/08/23 Supervisor [employer] Relationship Specialty Start Date End Date Iker Maria MD [address] [place] [phone] PCP - General Family Medicine 10/08/23 Team Status: Active Member Role Status Dates Iker Maria MD Primary Care Provider Active Team Status: Inactive Member Role Status Dates Iker Maria MD Primary Care Provider Active S tart: May 08, 2025 End: May 08, 2025 Indira Millan APRN ACADEMIC ADVISING DIRECTOR-C Attending Provider Active Start: April End: May 08, 2025 Goals (unrecognized section and content) Goals may be documented in a n alternate section FOR RECORDS PERTAINING TO PATIENTS WHO ARE [...] BE BASED ON THE PRIMARY CLINICAL RECORDS. [facility] [employer] [facility]. provides no warranty or guarantee of the accuracy or completeness of information in this document.
[2025-05-18 14:01] LABS: Thyroid Stimulating Hormone 0.663 uIU/mL (0.358-3.740)
== END 2025-05-18 11:13 | disposition home or self-care (01) ==
LOC: LAB 11:12
PROVIDERS: PCP Family Medicine
DX: E89.0 Postprocedural hypothyroidism (principal)
CPT/HCPCS: 36415; 84436; 84443